=== PATIENT | male | born 1950 | race Caucasian/White ===

== ENCOUNTER 2019-05-29 09:26 | Inpatient (IN) ==
[2019-05-29] MEDS ORDERED: ONDANSETRON INJ 2 MG/ML 2 ML VIAL IV STA (10:28)
[2019-05-29] MEDS ORDERED: SODIUM CHLORIDE 0.9% 1000ML 1,000 ML IV ONE ×2 (10:28→12:38)
[2019-05-29 10:35] LABS: Basophils # (auto) 0.04 K/uL (0-0.2); Basophils % (auto) 0.5 %; Eosinophils # (auto) 0.16 K/uL (0-0.5); Eosinophils % (auto) 2.1 %; Hematocrit (blood only) 40.9 % (42-52); Hemoglobin 14.3 g/dL (14.0-18.0); Immature Granulocytes # (auto) 0.01 K/uL (0.00-0.02); Immature Granulocytes % (auto) 0.1 %; Lymphocytes # (auto) 0.69 K/uL (1.2-3.4); Mean Corpuscular Volume 85.7 fL (80-100); Mean Platelet Volume 9.7 fL (7.4-10.4); Monocytes # (auto) 0.87 K/uL (0.11-0.59); Monocytes % (auto) 11.3 %; Platelet Count 339 K/uL (130-400); RDW Coefficient of Variation 12.2 % (11.5-14.5); RDW Standard Deviation 38.3 fL (36.4-46.3); Red Blood Count 4.77 M/uL (4.7-6.1); White Blood Count 7.67 K/uL (4.8-10.8)
[2019-05-29 10:51] LABS: D Dimer 550 ug/L FEU (0-500)
[2019-05-29 11:15] LABS: Alanine Aminotransferase 21 U/L (12-78); Albumin Level 3.6 gm/dl (3.4-5.0); Aspartate Aminotransferase 17 U/L (15-37); BUN Creatinine Ratio 13.1 (10-20); Blood Urea Nitrogen 12 mg/dl (7-18); Carbon Dioxide 27 mmol/L (21-32); Chloride 98 mmol/L (98-107); Creatinine Clr Calc Pharmacy 99.4 ml/min; Est GFR (African American) 99.9; Est GFR (Non-African American) 86.2; Glucose 104 mg/dl (70-99); Lipase 281 U/L (73-393); Magnesium 1.6 mg/dl (1.8-2.4); Potassium 3.7 mmol/L (3.5-5.1); Sodium 131 mmol/L (136-145)
[2019-05-29 11:19] LABS: Alkaline Phosphatase 89 U/L (45-117); Bilirubin,Total 0.6 mg/dl (0.2-1); Globulin 3.7 gm/dl (2.5-4.0); Total Protein 7.3 gm/dl (6.4-8.2); Troponin I < 0.015 ng/ml (0-0.045)
[2019-05-29] MEDS ORDERED: MAGNESIUM SULFATE / D5W 1 GM/100 ML BAG IV ONE (11:19)
[2019-05-29] MEDS ORDERED: OPTIRAY 320 125ml IV PRN (11:30)
--- NOTE | 2019-05-29 11:49 | CT Scan Report ---
CT SCAN OF THE CERVICAL SPINE CLINICAL HISTORY: Left upper extremity paresthesias. COMPARISON STUDY: No priors. TECHNIQUE: CT scan of the cervical spine is performed from the skull base to the upper thoracic spine . Images are reviewed in the axial, sagittal, and coronal planes. IV contrast was not administered fo r this examination. A dose lowering technique was utilized adhering to the principles of ALARA. FINDINGS: Skeletal structures: The skeletal structures are osteopenic. There is no evidence of fracture or subl uxation involving the cervical spine. Vertebral body height and alignment are maintained. Anterior os teophytes are seen throughout. The odontoid process and lateral masses are intact. The atlantoaxial a rticulation is preserved noting productive degenerative change. The spinous processes appear intact. There is mild to moderate multilevel cervical spondylosis. Uncovertebral and facet arthropathy contri bute to neural foraminal stenosis at several levels. This is moderate on the left at C4-C5 and C6-C7. This is moderate on the right at C3-C4, C4-C5, C5-C6, and C6-C7. Intervertebral discs: There is moderate to advanced disc space narrowing seen at C5-C6 and C6-C7. Mod erate disc space narrowing is seen at C3-C4 and C4-C5. Central canal: Posterior disc osteophyte complexes from C3-C4 through C6-C7 likely contribute to mult ilevel acquired compromise of the central canal. Soft tissues: The prevertebral and paraspinous soft tissues are within normal limits. There is athero sclerotic calcification of the carotid bulbs. Calvarium: The visualized calvarium at the skull base appears intact. Brain parenchyma: Partially visualized brain parenchyma the skull base is within normal limits. Sinuses and mastoids: The visualized paranasal sinuses are clear. The mastoid air cells are well pneu matized. Lung apices: Clear as visualized. IMPRESSION: 1. There is no evidence of fracture or subluxation involving the cervical spine. 2. Osteopenia and spondylotic change as above. ACT 112: Negative or not required by law. Electronically signed by: Kendell Muir M.D. 05/29/2019 11:48 AM
--- NOTE | 2019-05-29 12:10 | CT Scan Report ---
CT ANGIOGRAM OF THE CHEST; CT SCAN OF THE THORACIC SPINE WITHOUT IV CONTRAST CLINICAL HISTORY: Atypical chest pain. Paresthesias of left back. COMPARISON STUDY: Chest CT dated 08/29/2010. Radiographs of the thoracic spine dated 04/15/2019. TECHNIQUE: Following the IV administration of 120 cc of Optiray 320, CT angiogram of the chest was pe rformed from the upper abdomen to the thoracic inlet utilizing the pulmonary embolus protocol. Images are reviewed in the axial, sagittal, and coronal planes. 3-D MIPS images are created and assessed. A dditionally, CT scan of the thoracic spine is performed from the lower cervical spine to the upper olman mbar spine. Images are reviewed in the axial, sagittal, and coronal planes. IV contrast was administe red without complication. A dose lowering technique was utilized adhering to the principles of ALARA . CT DOSE: 1379.00 mGy.cm FINDINGS: Thyroid: Imaged portions of the thyroid gland are normal in size and attenuation. Thoracic aorta: There is mild atherosclerotic calcification of the thoracic aorta is normal in calibe r and demonstrates bovine variant arch anatomy. No dissection is seen. Pulmonary vasculature: The pulmonary trunk is normal in caliber. There are no filling defects identif ied in main, lobar, or segmental pulmonary branches to suggest pulmonary embolus. Heart: The heart is enlarged and without pericardial effusion. The coronary arteries are densely calc ified. Lungs and pleural spaces: Evaluation of the lung parenchyma is degraded by motion artifact. There is no airspace consolidation or pleural effusion. Scarring/atelectasis is noted at the lung bases. The t rachea and central airways are clear. Mediastinum: There is no mediastinal lymphadenopathy. Korina: Clear. Axillae: There is no axillary lymphadenopathy. Upper abdomen: There is a small hiatal hernia. The majority of pancreas is visualized. The grand demo nstrates fatty atrophy. There is a large mass lesion involving the pancreatic tail seen on image #61 which measures approximately 9 x 8 cm and encases branches of the splenic artery. This abuts the grea ter curvature of the stomach. A smaller mass lesion is identified in the pancreatic body on image #35 and measures 3.9 x 2.6 cm. A mass lesion in the pancreatic head on image #6 measures up to 2.8 cm. A smaller nodule in the pancreatic neck region seen on image #13 measures 1.2 cm. There is] infiltrati on and trace fluid. There are pathologically enlarged retroperitoneal lymph nodes. A node on image #7 measures 1.5 cm in length. Numerous peritoneal nodules are identified in the left upper quadrant bel ow the diaphragm. There are enlarged gastrohepatic nodes on image #70. The neural exit measures up to 3.2 cm. No hepatic lesion is seen. Skeletal structures: The skeletal structures are osteopenic. No lytic or blastic bony lesions are see n. THORACIC SPINE: Vertebral body height and alignment are maintained throughout the thoracic spine. The re is no evidence of fracture or malalignment. Flowing anterior osteophytes are seen throughout. The transverse and spinous spinous processes are intact. There is mild multilevel degenerative disc space narrowing. There is no CT evidence of high-grade central canal stenosis. Small posterior disc bulges are noted at T7-T8 and T8-T9. The paraspinous soft tissues are normal in appearance. Soft tissues: Gynecomastia is noted. IMPRESSION: 1. There is no evidence of pulmonary embolus in the main, lobar, or segmental pulmonary arteries.. 2. No acute osseous abnormality is seen involving the thoracic spine. 3. There is no airspace consolidation or pleural effusion. 4. There are several pancreatic mass lesions identified as above. The largest is present in the pancr eatic tail and measures up to 9 cm. This should be considered neoplasm until proven otherwise. Althou gh atypical, this could represent a primary pancreatic neoplasm. Other strong differential considerat ions include pancreatic metastases or lymphoma. 5. There are pathologically enlarged upper abdominal and retroperitoneal lymph nodes. 6. There are numerous peritoneal nodules identified, likely representing peritoneal carcinomatosis. 7. There is peripancreatic inflammation and trace fluid. Correlate clinically and with serum amylase/ lipase levels for evidence of acute pancreatitis. 8. Cardiomegaly. 9. Additional findings as above. ACT 112: Positive. There are findings on this exam that require communication between the performing entity and the patient following Patient Test Result Information Act ([place] Act 112) guidelines. Electronically signed by: Kendell Muir M.D. 05/29/2019 12:08 PM
[2019-05-29] MEDS ORDERED: fentaNYL citrate 100 MCG/2 ML VIAL IV STA (13:15)
[2019-05-29] MEDS ORDERED: ACETAMINOPHEN 1,000 MG/100 ML VIAL IV STA (13:15)
--- NOTE | 2019-05-29 14:38 | History & Physical Report ---
Date of Service May 29, 2019 Assessment & Plan (1) Left-sided chest pain: Possibly referred pain from mass Trop neg x1 CTA neg for other issues other than mass CBC, PRP WNL Lipase WNL EKG noted for sinus tachy GI and gen surg c/s pending Clears IVF Helped with gabapentin and tramadol, continue (2) Pancreatic mass: As noted above (3) HTN (hypertension): continue home meds (4) Elevated PSA: MRI scheduled for tomorrow, will need rescheduled on d/c Follows with [facility] [place] urology (5) DVT prophylaxis: SCDs History of Present Illness Primary Care Provider: SHILO Vizcarra 68 y/o M c/o L lateral pain and itching. This has been ongoing for the last several weeks. It started on the L lateral chest wall and was more of an itching sensation. He mentioned it to a family member and was told it might be shingles. He never developed a rash and the itching became more intense, spreading around to his back and into his chest. It became more painful as well. He would also have radiation at times into his L UE. Pt was seen by PCP and images reveals bone spurs along his spine, so it was thought that this was more of a nerve related pain due to the bone spurs. Pt was started on gabapentin and tramadol. This did help initially, but then it wasn't as helpful. Dosing was increased and it did help again, however he started having nausea and constipation. He has been taking stool softeners for this. He has not been able to tolerate PO for about a month at this point and has lost about 20lbs over the last month.Pt denies fever, SOB, abd pain, LE pain or swelling. Pt was to have an MRI tomorrow for elevated PSA. Allergies Allergy/AdvReac Type Severity Reaction Status Date / Time ibuprofen Allergy Severe ANAPHYLAXIS Verified 05/29/19 09:59 Home Medications Home Medications Medication Instructions Recorded Confirmed Type aspirin 81 mg PO DAILY 05/29/19 05/29/19 History fenofibrate nanocrystallized 145 mg PO DAILY 05/29/19 05/29/19 History gabapentin 400 mg PO TID 05/29/19 05/29/19 History tramadol 50 mg PO Q6 PRN 05/29/19 05/29/19 History valsartan-hydrochlorothiazide 1 tab PO DAILY 05/29/19 05/29/19 History Past Med/Surg History Surgical History No pertinent past surgical history Family History (Updated 05/29/19 @ 14:36 by Terri Carbajal DO) Father Myocardial infarction Other Family history non-contributory Social History (Updated 05/29/19 @ 14:37 by Terri Carbajal DO) Preferred Language: Kittitian Feels Safe at Home: Yes Smoking Status: Never smoker Hx Alcohol Use: Yes Alcohol type: beer and wine Alcohol Intake Frequency Comment: none x30 days due to sx Hx Substance Use: No Review of Systems Review of Systems: Pertinent positives and negatives reviewed in HPI--all others negative Physical Exam Constitutional: WD/WN, vitals as above Eyes: normal visual emmanuel by confrontation and + anicteric sclerae Neck: normal visual inspection and trachea midline Respiratory: normal respiratory effort, lungs clear to auscultation Cardiovascular: Rate/Rhythm: regular rate and regular rhythm Gastrointestinal (Abdomen): Inspection/Auscultation: abdomen not distended Percussion/Palpation: abdomen soft; abdomen nontender Musculoskeletal: Head/Neck/Chest: normocephalic and head atraumatic negative for edema, peripheral pulses intact Skin: no rashes, warm and dry Neurologic: awake; not confused Speech / Cognition: normal speech Psychiatric: A+Ox3, euthymic affect Results & Data Vital Signs (Past 12 Hours) Vital Signs Temp Pulse Pulse Resp BP BP Pulse Ox 05/29/19 11:10 119 H 17 133/96 97 05/29/19 09:29 36.5 C 121 H 20 133/[address] c-spine/t-spine: neg for acute CTA: Neg for PE, noted for pancreatic tail mass, 9cm ECG Additional Comments: sinus tachy Code Status & VTE Plan Code Status Full code VTE Prophylaxis Plan VTE Prophylaxis will be ordered: Yes PG Care Time/CCT Total # of Minutes Spent Total Time Spent with Patient: Total time spent is greater than 50% in coordination of care (as documented) at patient's floor/unit and/or counseling patient:
[2019-05-29] MEDS ORDERED: ACETAMINOPHEN 325 MG TAB PO PRN (15:47)
[2019-05-29] MEDS ORDERED: ONDANSETRON INJ 2 MG/ML 2 ML VIAL IV PRN (15:47)
[2019-05-29] MEDS ORDERED: MAGNESIUM HYDROXIDE SUSP 30 ML UDC PO PRN (15:47)
[2019-05-29] MEDS: D5W AND NSS 1,000 ML IV SCH (16:42)
[2019-05-29] MEDS: TRAMADOL HCL 50 MG TABLET PO PRN ×2 (16:55→19:33)
--- NOTE | 2019-05-29 17:34 | Electrocardiogram Report ---
Test Reason : Blood Pressure : / mmHG Vent. Rate : 122 BPM Atrial Rate : 122 BPM P-R Int : 170 ms QRS Dur : 108 ms QT Int : 324 ms P-R-T Axes : 017 -89 044 degrees QTc Int : 461 ms Sinus tachycardia Left axis deviation Pulmonary disease pattern Incomplete right bundle branch block Abnormal ECG When compared with ECG of 30-AUG-2010 08:56, Vent. rate has increased BY 50 BPM Confirmed by Arvind Veras ([id number]) on 05/29/2019 5:33:41 PM Referred By: REFERRED SELF Confirmed By:Arvind Veras
--- NOTE | 2019-05-29 19:03 | Emergency Department Note ---
Entered by Vj Song acting as a scribe for History of Present Illness General Chief complaint: GI Assessment Stated complaint: UNABLE TO EAT, EXCRUTIATING PAIN BACK, THROAT PAIN Time Seen by Provider: 05/29/19 10:02 Source: patient Limitations: no limitations History of Present Illness Onset (ago): week(s) 4 Location: left (arm) Radiation: other (chest, under left shoulder blade) Pain Consistency: + constant Maximum Pain Intensity: 9 Quality: + constant Associated symptoms: + denies other symptoms (neck pain, recent falls, recent injuries, vision problems), + nausea/vomiting (nausea), + weakness and + other (buttock numbness, right ear numbness, ); no headaches and no rash The patient is a 68 year old male who presents to the Emergency Room with complaints of constant and worsening left arm numbness starting 4 weeks ago. The patient states he lost his voice 3 months ago and has not got it back since. The patient states he went to a medical center a month ago with left arm numbness and itchiness. He states the numbness and itchiness radiates to under his left shoulder blade and around to the left-side of his chest. He states the numbness goes down to his fingertips on his left hand. He states he has left arm weakness. He states he received imaging and was told he had a pinched nerve and bone spurs. He states he has an MRI scheduled for tomorrow. He states his right ear is numb. He states he started to get left buttock numbness last week. He notes he has not been eating much. he states if he bends over and stands up quickly it feels like he is going to pass out. The patient denies vision problems, headaches, rashes, neck pain, recent falls, and recent change in his activity. He denies prior neck and back problems. He states he has an MRI scheduled for tomorrow of his thoracic spine. He notes he was initially taking gabapentin and tramadol and notes he started to feel nauseous. He states he was told to take Prilosec and states that made him feel better. He states his father at 52 years old from a heart attack. He states he had PSAs of 15.5. Home Medications Home Medications Medication Instructions Recorded Confirmed Type aspirin 81 mg PO DAILY 05/29/19 05/29/19 History fenofibrate nanocrystallized 145 mg PO DAILY 05/29/19 05/29/19 History gabapentin 400 mg PO TID 05/29/19 05/29/19 History tramadol 50 mg PO Q6 PRN 05/29/19 05/29/19 History valsartan-hydrochlorothiazide 1 tab PO DAILY 05/29/19 05/29/19 History Allergies Allergy/AdvReac Type Severity Reaction Status Date / Time ibuprofen Allergy Severe ANAPHYLAXIS Verified 05/29/19 09:59 Past Med/Surg History Surgical History No pertinent past surgical history Family History (Updated 05/29/19 @ 14:36 by Terri Carbajal DO) Father Myocardial infarction Other Family history non-contributory Social History (Updated 05/29/19 @ 14:37 by Terri Carbajal DO) Preferred Language: Turkmen Communication Ability: Effective 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 and A total of 10 systems reviewed and were otherwise negative Physical Exam Vital Signs Vital Signs - 24 hr 05/29/19 09:29 05/29/19 11:10 05/29/19 13:00 Temperature 36.5 C Temperature Source Oral Pulse Rate 121 H Pulse Rate [Apical] 119 H 102 H Pulse Rhythm [Apical] Regular Regular Respiratory Rate 20 17 17 Respiratory Effort / Characteristics Non-Labored Spontaneous Non-Labored Non-Labored Spontaneous Respiratory Depth Normal Normal Normal Respiratory Pattern Regular Regular Blood Pressure 133/90 Blood Pressure [Left Arm] 133/96 138/95 Blood Pressure Mean 104 Blood Pressure Mean [Left Arm] 108 109 Blood Pressure Position Sitting Pulse Oximetry 100 97 96 Oxygen Delivery Method Room Air Room Air Room Air Sepsis Recent Fever Within 48 Hours No Sepsis New/Unexplained Change in Mental Status No Sepsis Action Taken by Nursing No Action Required GENERAL: alert, well appearing, well nourished, no distress, non-toxic EYE EXAM: normal conjunctiva, PERRL and EOM's grossly intact OROPHARYNX: no exudate, no erythema, lips, buccal mucosa, and tongue normal and mucous membranes are moist NECK: supple, no nuchal rigidity, no adenopathy, non-tender LUNGS: Clear to auscultation. Normal chest wall mechanics, no w/r/r HEART: no murmurs, S1 normal and S2 normal. CHEST: No reproducible chest wall tenderness. ABDOMEN: abdomen soft, non-tender, normo-active bowel sounds, no masses, no rebound or guarding. BACK: Back is symmetrical on inspection and there is no deformity, no midline tenderness, no CVA tenderness. SKIN: no rashes and no bruising, no petechiae, no vesicular rash. UPPER EXTREMITIES: upper extremities are grossly normal. Subjective altered sensation to left upper extremity with light touch. Full ROM with slightly decreased strength on handgrip. LOWER EXTREMITIES: No pitting edema. FROM, nml pulses b/l. NEURO EXAM: Normal sensorium, cranial nerves II-XII grossly intact, normal speech, no gross weakness of arms, no gross weakness of legs. Course Course 1010: The patient was evaluated in room A11B, and a complete history and physical examination were performed. 1254: I reevaluated the patient. I updated the patient on his imaging results. 1321: I discussed the patient's case with Dr. Cabrajal - [facility]. She will evaluate the patient for further management. Administered Medications Dextrose/Sodium Chloride (D5w And Nss) 1,000 mls @ 80 mls/hr IV .[id number] ANA Stop: 06/28/19 15:46 Last Admin: 05/29/19 16:42 Dose: 80 mls/hr Documented by: [id number] Ioversol (Optiray 320 125ml) 120 ml IV ONCE PRN PRN Reason: Interaction Checking Stop: 06/02/19 11:29 Last Admin: 05/29/19 11:30 Dose: 120 ml Documented by: [id number] Discontinued Medications Fentanyl Citrate (Fentanyl Citrate) 50 mcg IV NOW STA Stop: 05/29/19 13:16 Last Admin: 05/29/19 13:43 Dose: 50 mcg Documented by: [id number] Sodium Chloride (Nss 1000ml) 1,000 mls @ 999 mls/hr IV .Q1H1M ONE Stop: 05/29/19 11:28 Last Infusion: 05/29/19 12:20 Dose: 0 mls/hr Documented by: [id number] Admin: 05/29/19 11:09 Dose: 999 mls/hr Documented by: [id number] Magnesium Sulfate/Dextrose (Magnesium Sulfate / D5w) 1 gm in 100 mls @ 100 mls/hr IV ONE ONE Stop: 05/29/19 12:18 Last Infusion: 05/29/19 12:48 Dose: 0 mls/hr Documented by: [id number] Admin: 05/29/19 11:43 Dose: 100 mls/hr Documented by: [id number] Sodium Chloride (Nss 1000ml) 1,000 mls @ 999 mls/hr IV .Q1H1M ONE Stop: 05/29/19 13:38 Last Infusion: 05/29/19 13:41 Dose: 0 mls/hr Documented by: [id number] Admin: 05/29/19 12:48 Dose: 999 mls/hr Documented by: [id number] Acetaminophen (Ofirmev) 1,000 mg in 100 mls @ 400 mls/hr IV NOW STA Stop: 05/29/19 13:29 Last Infusion: 05/29/19 13:58 Dose: 0 mls/hr Documented by: [id number] Admin: 05/29/19 13:43 Dose: 400 mls/hr Documented by: [id number] Ondansetron HCl (Zofran) 4 mg IV NOW STA Stop: 05/29/19 10:29 Last Admin: 05/29/19 11:09 Dose: 4 mg Documented by: [id number] Medical Decision Making Differential Diagnosis Differential diagnoses includes but is not limited to gastritis, peptic ulcer di sease, GERD, gallbladder disease, pancreatitis, small bowel obstruction, acute coronary syndrome, ischemic bowel, irritable bowel disease, irritable bowel syndrome, appendicitis, diverticulitis, malignancy, hernia, urinary tract infection, torsion, perforation, trauma, infectious, myocardial infarction, pericarditis, pulmonary embolus, aortic dissection, pneumonia, pneumothorax, musculoskeletal, shingles, and esophageal. Medical Records Attestation: I reviewed the patient's medical records. Home Medications Current Medication List: was personally reviewed by me Laboratory Data Attestation: I reviewed the patient's lab results. Result diagrams: 05/29/19 10:26 05/29/19 10:26 Lab Results 05/29/19 05/29/19 05/29/19 Range/Units 10:26 10:26 10:26 WBC 7.67 (4.8-10.8) K/uL RBC 4.77 (4.7-6.1) M/uL Hgb 14.3 (14.0-18.0) g/dL Hct 40.9 L (42-52) % MCV 85.7 (80-100) fL MCH 30.0 (25-34) pg MCHC 35.0 (32-36) g/dL RDW Std Deviation 38.3 (36.4-46.3) fL RDW Coeff of [place] 12.2 (11.5-14.5) % Plt Count 339 (130-400) K/uL MPV 9.7 (7.4-10.4) fL Immature Gran % (Auto) 0.1 % Neut % (Auto) 77.0 % Lymph % (Auto) 9.0 % [place] % (Auto) 11.3 % Eos % (Auto) 2.1 % Baso % (Auto) 0.5 % Immature Gran # (Auto) 0.01 (0.00-0.02) K/uL Neut # (Auto) 5.90 (1.4-6.5) K/uL Lymph # (Auto) 0.69 L (1.2-3.4) K/uL [place] # (Auto) 0.87 H (0.11-0.59) K/uL Eos # (Auto) 0.16 (0-0.5) K/uL Baso # (Auto) 0.04 (0-0.2) K/uL D-Dimer 550 H* (0-500) ug/L FEU Sodium 131 L (136-145) mmol/L Potassium 3.7 (3.5-5.1) mmol/L Chloride 98 (98-107) mmol/L Carbon Dioxide 27 (21-32) mmol/L Anion Gap 6.0 (3-11) BUN 12 (7-18) mg/dl Creatinine 0.90 (0.6-1.4) mg/dl Est Cr Clr Drug Dosing 99.4 ml/min Est GFR ( Amer) 99.9 Est GFR (Non-Af Amer) 86.2 BUN/Creatinine Ratio 13.1 (10-20) Glucose 104 H (70-99) mg/dl Calcium 10.0 (8.5-10.1) mg/dl Magnesium 1.6 L (1.8-2.4) mg/dl Total Bilirubin 0.6 (0.2-1) mg/dl AST 17 (15-37) U/L ALT 21 (12-78) U/L Alkaline Phosphatase 89 (45-117) U/L Troponin I < 0.015 (0-0.045) ng/ml Total Protein 7.3 (6.4-8.2) gm/dl Albumin 3.6 (3.4-5.0) gm/dl Globulin 3.7 (2.5-4.0) gm/dl Albumin/Globulin Ratio 1.0 (0.9-2) Lipase 281 (73-393) U/L Hepatitis C Ab Screen (Neg) 05/29/19 Range/Units 10:26 WBC (4.8-10.8) K/uL RBC (4.7-6.1) M/uL Hgb (14.0-18.0) g/dL Hct (42-52) % MCV (80-100) fL MCH (25-34) pg MCHC (32-36) g/dL RDW Std Deviation (36.4-46.3) fL RDW Coeff of [place] (11.5-14.5) % Plt Count (130-400) K/uL MPV (7.4-10.4) fL Immature Gran % (Auto) % Neut % (Auto) % Lymph % (Auto) % [place] % (Auto) % Eos % (Auto) % Baso % (Auto) % Immature Gran # (Auto) (0.00-0.02) K/uL Neut # (Auto) (1.4-6.5) K/uL Lymph # (Auto) (1.2-3.4) K/uL [place] # (Auto) (0.11-0.59) K/uL Eos # (Auto) (0-0.5) K/uL Baso # (Auto) (0-0.2) K/uL D-Dimer (0-500) ug/L FEU Sodium (136-145) mmol/L Potassium (3.5-5.1) mmol/L Chloride (98-107) mmol/L Carbon Dioxide (21-32) mmol/L Anion Gap (3-11) BUN (7-18) mg/dl Creatinine (0.6-1.4) mg/dl Est Cr Clr Drug Dosing ml/min Est GFR ( Amer) Est GFR (Non-Af Amer) BUN/Creatinine Ratio (10-20) Glucose (70-99) mg/dl Calcium (8.5-10.1) mg/dl Magnesium (1.8-2.4) mg/dl Total Bilirubin (0.2-1) mg/dl AST (15-37) U/L ALT (12-78) U/L Alkaline Phosphatase (45-117) U/L Troponin I (0-0.045) ng/ml Total Protein (6.4-8.2) gm/dl Albumin (3.4-5.0) gm/dl Globulin (2.5-4.0) gm/dl Albumin/Globulin Ratio (0.9-2) Lipase (73-393) U/L Hepatitis C Ab Screen Neg (Neg) Imaging Data Radiologist's Impression: Radiology results as stated below per my review and the radiologist's interpretation: CT SCAN OF THE CERVICAL SPINE CLINICAL HISTORY: Left upper extremity paresthesias. COMPARISON STUDY: No priors. TECHNIQUE: CT scan of the cervical spine is performed from the skull base to the upper thoracic spine. Images are reviewed in the axial, sagittal, and coronal planes. IV contrast was not administered for this examination. A dose lowering technique was utilized adhering to the principles of ALARA. FINDINGS: Skeletal structures: The skeletal structures are osteopenic. There is no evidence of fracture or subluxation involving the cervical spine. Vertebral body height and alignment are maintained. Anterior osteophytes are seen throughout. The odontoid process and lateral masses are intact. The atlantoaxial ar ticulation is preserved noting productive degenerative change. The spinous processes appear intact. There is mild to moderate multilevel cervical spondylosis. Uncovertebral and facet arthropathy contribute to neural foraminal stenosis at several levels. This is moderate on the left at C4-C5 and C6-C7. This is moderate on the right at C3-C4, C4-C5, C5-C6, and C6-C7. Intervertebral discs: There is moderate to advanced disc space narrowing seen at C5-C6 and C6-C7. Moderate disc space narrowing is seen at C3-C4 and C4-C5. Central canal: Posterior disc osteophyte complexes from C3-C4 through C6-C7 likely contribute to multilevel acquired compromise of the central canal. Soft tissues: The prevertebral and paraspinous soft tissues are within normal limits. There is atherosclerotic calcification of the carotid bulbs. Calvarium: The visualized calvarium at the skull base appears intact. Brain parenchyma: Partially visualized brain parenchyma the skull base is within normal limits. Sinuses and mastoids: The visualized paranasal sinuses are clear. The mastoid air cells are well pneumatized. Lung apices: Clear as visualized. IMPRESSION: 1. There is no evidence of fracture or subluxation involving the cervical spine. 2. Osteopenia and spondylotic change as above. ACT 112: Negative or not required by law. Electronically signed by: Kendell Muir M.D. 05/29/2019 11:[address] ANGIOGRAM OF THE CHEST; CT SCAN OF THE THORACIC SPINE WITHOUT IV CONTRAST CLINICAL HISTORY: Atypical chest pain. Paresthesias of left back. COMPARISON STUDY: Chest CT dated 08/29/2010. Radiographs of the thoracic spine dated 04/15/2019. TECHNIQUE: Following the IV administration of 120 cc of Optiray 320, CT angiogram of the chest was performed from the upper abdomen to the thoracic inlet utilizing the pulmonary embolus protocol. Images are reviewed in the axial, sagittal, and coronal planes. 3-D MIPS images are created and assessed. Additionally, CT scan of the thoracic spine is performed from the lower cervical spine to the upper lumbar spine. Images are reviewed in the axial, sagittal, and coronal planes. IV contrast was administered without complication. A dose lowering technique was utilized adhering to the principles of ALARA. CT DOSE: 1379.00 mGy.cm FINDINGS: Thyroid: Imaged portions of the thyroid gland are normal in size and atten uation. Thoracic aorta: There is mild atherosclerotic calcification of the thoracic aorta is normal in caliber and demonstrates bovine variant arch anatomy. No dissection is seen. Pulmonary vasculature: The pulmonary trunk is normal in caliber. There are no filling defects identified in main, lobar, or segmental pulmonary branches to suggest pulmonary embolus. Heart: The heart is enlarged and without pericardial effusion. The coronary arteries are densely calcified. Lungs and pleural spaces: Evaluation of the lung parenchyma is degraded by motion artifact. There is no airspace consolidation or pleural effusion. Scarring/atelectasis is noted at the lung bases. The trachea and central airways are clear. Mediastinum: There is no mediastinal lymphadenopathy. [place]: Clear. Axillae: There is no axillary lymphadenopathy. Upper abdomen: There is a small hiatal hernia. The majority of pancreas is visualized. The grand demonstrates fatty atrophy. There is a large mass lesion involving the pancreatic tail seen on image #61 which measures approximately 9 x 8 cm and encases branches of the splenic artery. This abuts the greater curvature of the stomach. A smaller mass lesion is identified in the pancreatic body on image #35 and measures 3.9 x 2.6 cm. A mass lesion in the pancreatic hea d on image #6 measures up to 2.8 cm. A smaller nodule in the pancreatic neck region seen on image #13 measures 1.2 cm. There is] infiltration and trace fluid. There are pathologically enlarged retroperitoneal lymph nodes. A node on image #7 measures 1.5 cm in length. Numerous peritoneal nodules are identified in the left upper quadrant below the diaphragm. There are enlarged gastrohepatic nodes on image #70. The neural exit measures up to 3.2 cm. No hepatic lesion is seen. Skeletal structures: The skeletal structures are osteopenic. No lytic or blastic bony lesions are seen. THORACIC SPINE: Vertebral body height and alignment are maintained throughout the thoracic spine. There is no evidence of fracture or malalignment. Flowing anterior osteophytes are seen throughout. The transverse and spinous spinous processes are intact. There is mild multilevel degenerative disc space narrowing. There is no CT evidence of high-grade central canal stenosis. Small posterior disc bulges are noted at T7-T8 and T8-T9. The paraspinous soft tissues are normal in appearance. Soft tissues: Gynecomastia is noted. IMPRESSION: 1. There is no evidence of pulmonary embolus in the main, lobar, or segmental pulmonary arteries.. 2. No acute osseous abnormality is seen involving the thoracic spine. 3. There is no airspace consolidation or pleural effusion. 4. There are several pancreatic mass lesions identified as above. The largest is present in the pancreatic tail and measures up to 9 cm. This should be considered neoplasm until proven otherwise. Although atypical, this could represent a primary pancreatic neoplasm. Other strong differential considerations include pancreatic metastases or lymphoma. 5. There are pathologically enlarged upper abdominal and retroperitoneal lymph nodes. 6. There are numerous peritoneal nodules identified, likely representing peritoneal carcinomatosis. 7. There is peripancreatic inflammation and trace fluid. Correlate clinically and with serum amylase/lipase levels for evidence of acute pancreatitis. 8. Cardiomegaly. 9. Additional findings as above. ACT 112: Positive. There are findings on this exam that require communication between the performing entity and the patient following Patient Test Result Information Act ([place] Act 112) guidelines. Electronically signed by: Kendell Muir M.D. 05/29/2019 12:08 PM ECG Data Attestation: I personally reviewed and interpreted this ECG as follows: Rate (beats per minute): 122 Rhythm: + sinus tachycardia ECG Intervals/blocks: + Normal QRS, + Normal QT, + Normal [place] and + Normal QT-c ECG [place]: + Left axis deviation ECG ST segments: no ST depression and no ST elevation ECG Findings: no PACs and no PVCs Blood Pressure Blood Pressure Findings: Elevated blood pressure Blood Pressure Disposition: further management by hospitalist HUMBERTO Verduzco Patient presenting with worsening symptoms over the last 2 to 3 months after outpatient evaluation. Patient initially thought to have herpes zoster however no rash ever manifested. Patient sent for outpatient chest x-ray which was reported to him was unremarkable. Patient then eventually arranged for MRI by his PCP which is scheduled for later this week. In addition to the left chest and flank pain the patient has been having he is also been having increased paresthesias and weakness to the left upper extremity. No known history of cervical spine pathology. No other prior history of back pain or problems. Labs drawn and sent, EKG and troponin reassuring. Due to elevated d-dimer yariel ent sent for additional imaging which also included cervical and thoracic spine. Patient unfortunately found to have a pancreatic mass at the pancreatic tail which is likely the cause of the left-sided chest and flank pain he has been having. Is unclear if this also explains the left upper extremity paresthesias. Patient does have other degenerative changes noted in the spine which could be contributing to a cervical radiculopathy. Patient was made aware of all results and I feel would benefit from additional inpatient management. Patient was tachycardic when in the emergency room, he was given IV fluids. Patient otherwise hemodynamically stable and afebrile. Patient's other labs reassuring. I do not suspect cardiac or pulmonary pathology. No evidence for cholecystitis, acute pancreatitis, cholelithiasis. No history of hepatitis. Case discussed with hospitalist for additional management. Impression & Plan Left-sided chest pain, Left flank pain, Pancreatic mass, Paresthesia of left upper extremity Discharge Plan Visit Data *Final* Discharge Date/Time: 05/29/19 15:21 Chief Complaint: GI Assessment Stated Complaint: UNABLE TO EAT, EXCRUTIATING PAIN BACK, THROAT PAIN ED Provider: Diana Casiano Discharge Problem: Left-sided chest pain, Left flank pain, Pancreatic mass, Paresthesia of left upper extremity Patient Disposition: Admitted As Inpatient Discharge Instructions Interventions: ED Discharge Assessment Last Done: 05/29/19 15:21 The scribe's documentation has been prepared under my direction and personally reviewed by me in its entirety. I confirm that the note above accurately reflects all work, treatment, procedures, and medical decision making performed by me.
[2019-05-29] MEDS: GABAPENTIN 400 MG CAP PO SCH (20:36)
[2019-05-29] MEDS ORDERED: PNEUMOCOCCAL ADMINISTRATION CHARGE ONE (21:00)
[2019-05-29] MEDS ORDERED: PNEUMOCOCCAL POLYSACCHARIDES 25 MCG/0.5 ML VIAL/SYR IM ONE (21:00)
[2019-05-29] MEDS ORDERED: ZOLPIDEM TARTRATE 5 MG TAB PO ONE (21:50)
[2019-05-30] MEDS: D5W AND NSS 1,000 ML IV SCH ×2 (05:28→17:43)
[2019-05-30] MEDS: hydroCHLOROthiazide 25 MG TAB PO SCH (09:12)
[2019-05-30] MEDS: GABAPENTIN 400 MG CAP PO SCH ×3 (09:12→20:47)
[2019-05-30] MEDS: FENOFIBRATE NANOCRYSTALLIZED 145 MG TABLET PO SCH (09:12)
[2019-05-30] MEDS: VALSARTAN 80 MG TAB PO SCH (09:12)
--- NOTE | 2019-05-30 11:59 | Surgery Consultation ---
Date of Consultation May 30, 2019 Assessment & Plan (1) Pancreatic mass: Goal #1 is to obtain tissue diagnosis. GI going to attempt an endoscopic ultrasound which will hopefully get us our answer. This is not likely to be a surgical problem. He may need a Mediport pending final diagnosis. If you do not get diagnosis with endoscopic ultrasound he may need interventional radiology biopsy It would be okay from my standpoint for him to be discharged after the endoscopic ultrasound with work-up as outpatient. [facility] surgeons vacation sales advisor for the weekend if any surgical advice is needed History of Present Illness Attending Physician: Nick Martinez History of Present Illness 68-year-old male who had presented with chest itchiness and discomfort originally. He also complained about a 20 pound weight loss. Work-up while here in the hospital has revealed multiple pancreatic masses. Currently denies abdominal pain. Allergies Allergy/AdvReac Type Severity Reaction Status Date / Time ibuprofen Allergy Severe ANAPHYLAXIS Verified 05/29/19 09:59 Home Medications Home Medications Medication Instructions Recorded Confirmed Type aspirin 81 mg PO DAILY 05/29/19 05/29/19 History fenofibrate nanocrystallized 145 mg PO DAILY 05/29/19 05/29/19 History gabapentin 400 mg PO TID 05/29/19 05/29/19 History tramadol 50 mg PO Q6 PRN 05/29/19 05/29/19 History valsartan-hydrochlorothiazide 1 tab PO DAILY 05/29/19 05/29/19 History Patient History Surgical History No pertinent past surgical history Family History (Updated 05/29/19 @ 14:36 by Terri Carbajal DO) Father Myocardial infarction Other Family history non-contributory Social History (Updated 05/29/19 @ 14:37 by Terri Carbajal DO) Preferred Language: [place] Communication Ability: Effective 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 Food Assembler Required: No Beliefs That Will Affect Care: None marital status: Current Living Situation: Spouse Feels Safe at Home: Yes Smoking Status: Former smoker Tobacco Type: cigarettes ; Second Hand Exposure: No ; Hx Alcohol Use: Yes Alcohol type: beer Alcohol Intake Frequency Comment: none x30 days due to sx Hx Substance Use: No Review of Systems Review of Systems: All systems reviewed & are unremarkable except as noted in HPI & below Physical Exam Constitutional: WD/WN, vitals as above no acute distress and not ill appearing Eyes: PERRL, conjunctivae normal, anicteric sclerae EOM intact bilaterally ENMT: external ear and nose normal, oropharynx normal Ears: no hearing impairment Neck: trachea midline, no thyromegaly Respiratory: normal respiratory effort; no respiratory distress and does not use accessory muscles Cardiovascular: Rate/Rhythm: regular rate and regular rhythm Gastrointestinal (Abdomen): Soft nontender. No palpable masses. Skin: no rashes, warm and dry Psychiatric: Orientation: alert, oriented x 3 and cooperative Results & Data Vital Signs (Past 12 Hours) Vital Signs Temp Pulse Resp BP Pulse Ox 05/30/19 07:30 36.8 C 100 H 18 163/97 H 96 PG Care Time/CCT Total # of Minutes Spent Total Time Spent with Patient: Total time spent is greater than 50% in coordination of care (as documented) at patient's floor/unit and/or counseling patient:
--- NOTE | 2019-05-30 12:04 | Gastrointestinal Consultation ---
Date of Consultation May 30, 2019 Assessment & Plan (1) Pancreatic mass: 68 y/o male with PMhx HTN, HLD and new-onset abd discomfort, left-sided back and chest discomfort, along with anorexia and weight loss of approx 20 lbs in the last month presented with these symptoms yesterday. On CTA of the chest he was found to have several pancreatic lesions, largest 9 cm in the tail (concerning for pancreatic neoplasm/mets/lymphoma), along with pathologically enlarged lymph nodes in the upper abd/retroperitoneum in addition to findings concerning for peritoneal carcinomatosis. Labs reviewed; no elevated LFTS, bilirubin, WBC; HGB WNL. Currently he is resting and is comfortable. - Discussed findings with pt and his , who was at bedside - Plan for EUS this afternoon to obtain pancreatic biopsy - Keep NPO - Continue IVF - Continue analgesia PRN Supervising Physician Co-Signing Physician Notes I have seen and examined the patient with Luzmaria Armendariz PA-c whose note reflects our findings and plan. Admitted with back and abd pain and weight loss. Imaging done to r/o PE showed large pancreatic mass and additional masses encasing vessel abuting the stomach. EUS planned for later today. Abd exam is benign History of Present Illness Reason for Consultation: pancreatic mass Attending Physician: Nick Martinez History of Present Illness Pt is a 68 y/o male with PMhx HTN, HLD who developed left upper back pain, left chest and intermittent periumbilical discomfort described as a "burning" x at least the last several weeks. He's had limited appetite and has lost approx 20 lbs as well. He came to the ER yesterday with ongoing symptoms and was admitted; Na low but otherwise CBC, LFts, bilirubin, renal fxn WNL. D-dimer was elevated and CTA chest done demonstrating no PE, but several pancreatic mass lesions, largest present in the pancreatic tail measuring 9 cm, along with pathologically enlarged upper abd and retroperitoneal lymph nodes, along with numerous peritoneal nodules, likely representing peritoneal carcinomatosis; along with peripancreatic inflammation and trace fluid. Currently feeling better than he was previously; abd pain is currently minimal; back pain controlled. Bowels move daily, soft, brown. Denies significant night sweats, fevers, heartburn, dysphagia, vomiting, nausea, change in BMs, melena, hematochezia, jaundice, rashes, itching. Allergies Allergy/AdvReac Type Severity Reaction Status Date / Time ibuprofen Allergy Severe ANAPHYLAXIS Verified 05/29/19 09:59 Home Medications Home Medications Medication Instructions Recorded Confirmed Type aspirin 81 mg PO DAILY 05/29/19 05/29/19 History fenofibrate nanocrystallized 145 mg PO DAILY 05/29/19 05/29/19 History gabapentin 400 mg PO TID 05/29/19 05/29/19 History tramadol 50 mg PO Q6 PRN 05/29/19 05/29/19 History valsartan-hydrochlorothiazide 1 tab PO DAILY 05/29/19 05/29/19 History Patient History Surgical History No pertinent past surgical history Family History (Updated 05/29/19 @ 14:36 by Terri Carbajal DO) Father Myocardial infarction Other Family history non-contributory Social History (Updated 05/29/19 @ 14:37 by Terri Carbajal DO) Preferred Language: Frisian Communication Ability: Effective Yard Jockey Required: No Beliefs That Will Affect Care: None marital status: Current Living Situation: Spouse Feels Safe at Home: Yes Smoking Status: Former smoker Tobacco Type: cigarettes ; Second Hand Exposure: No ; Hx Alcohol Use: Yes Alcohol type: beer Alcohol Intake Frequency Comment: none x30 days due to sx Hx Substance Use: No Review of Systems Constitutional: as per Subjective / HPI, + anorexia and + weight loss; no fever and no chills Respiratory: no cough, no chest congestion and no wheezing Cardiovascular: no chest pain, no dyspnea and no edema Additional Comments: Denies cardiac history Gastrointestinal: as per Subjective / HPI Genitourinary: no dysuria and no hematuria Integumentary: no rash, no pruritus and no yellowing of the skin Physical Exam Constitutional: WD/WN, vitals as above Eyes: + anicteric sclerae Respiratory: normal respiratory effort, lungs clear to auscultation Cardiovascular: RRR, no murmur, no edema Gastrointestinal (Abdomen): Inspection/Auscultation: abdomen normal to inspection and normal bowel sounds; abdomen not distended Percussion/Palpation: abdomen soft; abdomen nontender, no guarding and not tympanic to percussion Skin: no rashes, warm and dry Psychiatric: A+Ox3, euthymic affect Results & Data Vital Signs (Past 12 Hours) Vital Signs Temp Pulse Resp BP Pulse Ox 05/30/19 07:30 36.8 C 100 H 18 163/97 H 96 Laboratory Results 05/29/19 05/29/19 Range/Units 10:26 10:26 Tumor Marker AFP Pending Hepatitis C Ab Screen Neg (Neg) Diagnostic Findings CT ANGIOGRAM OF THE CHEST; CT SCAN OF THE THORACIC SPINE WITHOUT IV CONTRAST CLINICAL HISTORY: Atypical chest pain. Paresthesias of left back. COMPARISON STUDY: Chest CT dated 08/29/2010. Radiographs of the thoracic spine dated 04/15/2019. TECHNIQUE: Following the IV administration of 120 cc of Optiray 320, CT angiogram of the chest was performed from the upper abdomen to the thoracic inlet utilizing the pulmonary embolus protocol. Images are reviewed in the axial, sagittal, and coronal planes. 3-D MIPS images are created and assessed. Additionally, CT scan of the thoracic spine is performed from the lower cervical spine to the upper lumbar spine. Images are reviewed in the axial, sagittal, and coronal planes. IV contrast was administered without complication. A dose lowering technique was utilized adhering to the principles of ALARA. CT DOSE: 1379.00 mGy.cm FINDINGS: Thyroid: Imaged portions of the thyroid gland are normal in size and attenuation. Thoracic aorta: There is mild atherosclerotic calcification of the thoracic a skip is normal in caliber and demonstrates bovine variant arch anatomy. No dissection is seen. Pulmonary vasculature: The pulmonary trunk is normal in caliber. There are no filling defects identified in main, lobar, or segmental pulmonary branches to suggest pulmonary embolus. Heart: The heart is enlarged and without pericardial effusion. The coronary arteries are densely calcified. Lungs and pleural spaces: Evaluation of the lung parenchyma is degraded by motion artifact. There is no airspace consolidation or pleural effusion. Scarring/atelectasis is noted at the lung bases. The trachea and central airways are clear. Mediastinum: There is no mediastinal lymphadenopathy. Korina: Clear. Axillae: There is no axillary lymphadenopathy. Upper abdomen: There is a small hiatal hernia. The majority of pancreas is visualized. The grand demonstrates fatty atrophy. There is a large mass lesion involving the pancreatic tail seen on image #61 which measures approximately 9 x 8 cm and encases branches of the splenic artery. This abuts the greater curvature of the stomach. A smaller mass lesion is identified in the pancreatic body on image #35 and measures 3.9 x 2.6 cm. A mass lesion in the pancreatic head on image #6 measures up to 2.8 cm. A smaller nodule in the pancreatic neck region seen on image #13 measures 1.2 cm. There is] infiltration and trace fluid. There are pathologically enlarged retroperitoneal lymph nodes. A node on image #7 measures 1.5 cm in length. Numerous peritoneal nodules are identified in the left upper quadrant below the diaphragm. There are enlarged gastrohepatic nodes on image #70. The neural exit measures up to 3.2 cm. No hepatic lesion is seen. Skeletal structures: The skeletal structures are osteopenic. No lytic or blastic bony lesions are seen. THORACIC SPINE: Vertebral body height and alignment are maintained throughout the thoracic spine. There is no evidence of fracture or malalignment. Flowing anterior osteophytes are seen throughout. The transverse and spinous spinous processes are intact. There is mild multilevel degenerative disc space narrowing. There is no CT evidence of high-grade central canal stenosis. Small posterior disc bulges are noted at T7-T8 and T8-T9. The paraspinous soft tissues are normal in appearance. Soft tissues: Gynecomastia is noted. IMPRESSION: 1. There is no evidence of pulmonary embolus in the main, lobar, or segmental pulmonary arteries.. 2. No acute osseous abnormality is seen involving the thoracic spine. 3. There is no airspace consolidation or pleural effusion. 4. There are several pancreatic mass lesions identified as above. The largest is present in the pancreatic tail and measures up to 9 cm. This should be considered neoplasm until proven otherwise. Although atypical, this could re present a primary pancreatic neoplasm. Other strong differential considerations include pancreatic metastases or lymphoma. 5. There are pathologically enlarged upper abdominal and retroperitoneal lymph nodes. 6. There are numerous peritoneal nodules identified, likely representing peritoneal carcinomatosis. 7. There is peripancreatic inflammation and trace fluid. Correlate clinically and with serum amylase/lipase levels for evidence of acute pancreatitis. 8. Cardiomegaly.
[2019-05-30] MEDS ORDERED: fentaNYL citrate 100 MCG/2 ML VIAL ONE (14:20)
--- NOTE | 2019-05-30 15:12 | History & Physical Bridge Note ---
Date of Service May 30, 2019 History & Physical Bridge Note I have examined the patient, reviewed the History & Physical and in the interval since the performance of the History & Physical I have noted the following changes of clinical significance: no changes noted. Patient has presented with several weeks of weight loss early satiety and was found to have evidence of pancreatic masses on CT scan. Endoscopic ultrasound has been requested for further evaluation and possible biopsy. I have discussed the risks and benefits of the procedure with the patient and his , these include bleeding, infection, perforation, pancreatitis and insufficient cellularity.
--- NOTE | 2019-05-30 15:24 | Anesthesiology Consultation ---
Date of Service May 30, 2019 Assessment & Plan Chart Review Chart Review: Acceptable Risk for Surgery Consults Requested none History Surgery Operation Date: 05/30/19 11:20 Proposed Procedures p Endoscopic Ultrasonography [place] - Amanda Foster Height/Weight Height: 6 ft 2 in Weight: 103.1 kg Allergies Allergy/AdvReac Type Severity Reaction Status Date / Time ibuprofen Allergy Severe ANAPHYLAXIS Verified 05/29/19 09:59 Medications Home Medications Medication Instructions Recorded Confirmed Last Taken aspirin 81 mg PO DAILY 05/29/19 05/29/19 05/29/19 fenofibrate nanocrystallized 145 mg PO DAILY 05/29/19 05/29/19 05/28/19 gabapentin 400 mg PO TID 05/29/19 05/29/19 05/28/19 tramadol 50 mg PO Q6 PRN 05/29/19 05/29/19 Unknown valsartan-hydrochlorothiazide 1 tab PO DAILY 05/29/19 05/29/19 05/28/19 Active Medications Generic Name Dose Route Start Last Admin Trade Name Freq PRN Reason Stop Dose Admin Acetaminophen 650 mg 05/29/19 15:47 05/30/19 02:32 Tylenol PO 06/28/19 15:46 650 mg Q4H PRN Administration pain/fever Fenofibrate 145 mg 05/30/19 09:00 05/30/19 09:12 Tricor PO 06/29/19 08:59 145 mg DAILY ANA Administration Gabapentin 400 mg 05/29/19 21:00 05/30/19 13:16 Neurontin PO 06/28/19 20:59 Not Given TID ANA Hydrochlorothiazide 12.5 mg 05/30/19 09:00 05/30/19 09:12 Hctz PO 06/29/19 08:59 12.5 mg DAILY ANA Administration Dextrose/Sodium Chloride 1,000 mls @ 80 mls/hr 05/29/19 15:47 05/30/19 05:28 D5w And Nss IV 06/28/19 15:46 80 mls/hr .[id number] ANA Administration Ioversol 120 ml 05/29/19 11:30 05/29/19 11:30 Optiray 320 125ml IV 06/02/19 11:29 120 ml ONCE PRN Administration Interaction Checking Tramadol HCl 50 mg 05/29/19 15:47 05/29/19 19:33 Ultram PO 06/28/19 15:46 50 mg Q6 PRN Administration Pain Valsartan 80 mg 05/30/19 09:00 05/30/19 09:12 Diovan PO 06/29/19 08:59 80 mg DAILY ANA Administration NPO Date Last Intake of Fluids: 05/30/19 Time Last Intake of Fluids: 09:00 Date Last Intake of Solids: 05/30/19 Time Last Intake of Solids: 09:00 Past Family History Family History Father Myocardial infarction Other Family history non-contributory Past Surgical History Surgical History No pertinent past surgical history Social History Smoking Status: Former smoker tobacco type: cigarettes Do You Dip or Chew Tobacco: No Smoking End Date: 1979 Hx Alcohol Use: Yes Alcohol type: beer alcohol intake frequency: 3 or more drinks per day Alcohol Intake Frequency Comment: approximately 2 months ago Hx Substance Use: No Physical Exam Vital Signs Last Vital Signs Temp 37.2 C 05/30/19 15:12 Pulse 105 H 05/30/19 15:12 Resp 18 05/30/19 15:12 BP 137/92 05/30/19 15:12 Pulse Ox 98 05/30/19 15:12 Testing Laboratory Results 05/29/19 10:26 05/29/19 10:26
[2019-05-30] MEDS ORDERED: ATROPINE SULFATE 0.1 MG/ML 10ML SYR IV PRN (15:25)
[2019-05-30] MEDS ORDERED: METOCLOPRAMIDE HCL INJ 5 MG/ML 2 ML VIAL IV PRN (15:25)
[2019-05-30] MEDS ORDERED: ePHEDrine sulfate 50 MG/ML AMP IV PRN (15:25)
[2019-05-30] MEDS ORDERED: ONDANSETRON INJ 2 MG/ML 2 ML VIAL IV PRN (15:25)
[2019-05-30] MEDS ORDERED: HYDROmorphone INJ 2 MG/ML SYR/VIAL IV PRN (15:25)
[2019-05-30] MEDS ORDERED: fentaNYL citrate 100 MCG/2 ML VIAL IV PRN (15:25)
[2019-05-30] MEDS ORDERED: PROMETHAZINE HCL 12.5 MG in SODIUM CHLORIDE 0.9% 50 ML IV PRN (15:25)
[2019-05-30] MEDS ORDERED: LIDOCAINE HCL 2% 2 ML VIAL/AMP(20MG/ML) INFIL ONE (15:47)
[2019-05-30] MEDS ORDERED: SUCCINYLCHOLINE CHLORIDE 20 MG/ML 10 ML VIAL ONE (15:47)
[2019-05-30] MEDS ORDERED: PROPOFOL IV EMULSION 10 MG/ML 20 ML VIAL IV ONE (15:47)
[2019-05-30] MEDS ORDERED: ONDANSETRON INJ 2 MG/ML 2 ML VIAL ONE (15:49)
--- NOTE | 2019-05-30 16:33 | Post Operative Brief Note ---
Immediate Post Op Note v1 Date of Surgery May 30, 2019 Pre & Post Diagnosis Operation Date: 05/30/19 11:20 Pre-Op Diagnosis: pancreatic mass Post-Op Diagnosis: diffuse gastric ulceration of the fundus, gastric mass, lymphadenopathy I identified the patient and participated in the time-out.: Yes Procedure Operation Date: 05/30/19 11:20 Actual Procedures p Endoscopic Ultrasonography Upper, upper endoscopy with biopsies and epinephrine injection(Not Applicable) - Amanda Foster Surgeon Amanda Foster Candle Cutter None Estimated Blood Loss 10 Findings Consistent with Post-Op Diagnosis
--- NOTE | 2019-05-30 16:34 | Communication Note ---
Date of Service: May 30, 2019 The patient underwent upper endoscopy and endoscopic ultrasound this afternoon. The upper endoscopy was notable for diffuse ulceration of the gastric fundus and proximal stomach. He had had a masslike appearance and I wonder about tumor infiltrated into the gastric wall. At the initial endoscopy he was found to have some active oozing. This was stopped with injection of epinephrine. We were also able to identify several lymph nodes which were biopsied. Recommendations Monitor blood count every 6-8 hours Please begin Protonix drip today and reassess tomorrow Biopsy results are pending If significant rebleeding occurs patient may benefit from a tertiary referral with interventional radiology support and perhaps hemo-spray availability
--- NOTE | 2019-05-30 16:43 | GI REPORT ---
Patient Name: Ayo Hagen Procedure Date: 05/30/2019 3:16 PM Date of : 1950 Admit Type: Inpatient Age: 68 Gender: Male Attending MD: Amanda Foster DO Procedure: Upper GI endoscopy Providers: Amanda Foster DO Referring MD: Nick Martinez, Jerri Torres DO, PATRICIA BUTLER Indications: Abnormal CT of the GI tract Medicines: Monitored Anesthesia Care Complications: No immediate complications. Estimated blood loss: Minimal. Estimated Blood Loss: Estimated blood loss was minimal. Procedure: Pre-Anesthesia Assessment: - Prior to the procedure, a History and Physical was performed, and patient medications, allergies and sensitivities were reviewed. The patient's tolerance of previous anesthesia was reviewed. - The risks and benefits of the procedure and the sedation options and risks were discussed with the patient. All questions were answered and informed consent was obtained. - Patient identification and proposed procedure were verified prior to the procedure by the physician, the nurse and the construction job cost estimator. The procedure was verified in the procedure room. - Pre-procedure physical examination revealed no contraindications to sedation. - ASA Grade Assessment: III - A patient with severe systemic disease. - After reviewing the risks and benefits, the patient was deemed in satisfactory condition to undergo the procedure. - The anesthesia plan was to use monitored anesthesia care (MAC). - Immediately prior to administration of medications, the patient was re-assessed for adequacy to receive sedatives. - The heart rate, respiratory rate, oxygen saturations, blood pressure, adequacy of pulmonary ventilation, and response to care were monitored throughout the procedure. - The physical status of the patient was re-assessed after the procedure. After obtaining informed consent, the endoscope was passed under direct vision. Throughout the procedure, the patient's blood pressure, pulse, and oxygen saturations were monitored continuously. The Endoscope was introduced through the mouth, and advanced to the third part of duodenum. The upper GI endoscopy was accomplished without difficulty. The patient tolerated the procedure well. Findings: The examined esophagus was normal. The Z-line was regular and was found 37 cm from the incisors. Clotted blood was found in the gastric fundus. Many non-obstructing oozing cratered gastric ulcers were found in the gastric fundus and on the posterior wall of the gastric body. The ulcers were nodular in appearance, suggestive of an infiltrating mass. Area was successfully injected with 10 mL of a 1:10,000 solution of epinephrine for hemostasis. Biopsies were taken with a cold forceps for histology. The pathology specimen was placed into Bottle A. Estimated blood loss was minimal. The examined duodenum was normal. Impression: - Normal esophagus. - Z-line regular, 37 cm from the incisors. - Clotted blood in the gastric fundus. - Non-obstructing oozing gastric ulcers. Injected. Biopsied. - Normal examined duodenum. Recommendation: - Perform an upper endoscopic ultrasound (UEUS) today. - Use Protonix (pantoprazole) 40 mg PO BID (it appears that an IV PPI is not available at [facility]). Amanda Foster D.O. Amanda Foster, DO 05/30/2019 4:43:35 PM This report has been signed electronically. Note Initiated On: 05/30/2019 3:16 PM Number of Addenda: 0 I attest to the content of the Intraoperative Record and orders documented therein, exceptions below {[id number]}
--- NOTE | 2019-05-30 16:52 | GI REPORT ---
Patient Name: Ayo Hagen Procedure Date: 05/30/2019 3:17 PM Date of : 1950 Admit Type: Inpatient Age: 68 Gender: Male Attending MD: Amanda Foster DO Procedure: Upper EUS Providers: Amanda Foster DO Referring MD: Nick Martinez Indications: Suspected mass in pancreas on CT scan Medicines: Monitored Anesthesia Care Complications: No immediate complications. Estimated blood loss: Minimal. Estimated Blood Loss: Estimated blood loss was minimal. Procedure: Pre-Anesthesia Assessment: - Prior to the procedure, a History and Physical was performed, and patient medications, allergies and sensitivities were reviewed. The patient's tolerance of previous anesthesia was reviewed. - The risks and benefits of the procedure and the sedation options and risks were discussed with the patient. All questions were answered and informed consent was obtained. - Patient identification and proposed procedure were verified prior to the procedure by the physician, the nurse and the apple picking supervisor. The procedure was verified in the procedure room. - Pre-procedure physical examination revealed no contraindications to sedation. - ASA Grade Assessment: III - A patient with severe systemic disease. - After reviewing the risks and benefits, the patient was deemed in satisfactory condition to undergo the procedure. - The anesthesia plan was to use monitored anesthesia care (MAC). - Immediately prior to administration of medications, the patient was re-assessed for adequacy to receive sedatives. - The heart rate, respiratory rate, oxygen saturations, blood pressure, adequacy of pulmonary ventilation, and response to care were monitored throughout the procedure. - The physical status of the patient was re-assessed after the procedure. After obtaining informed consent, the endoscope was passed under direct vision. Throughout the procedure, the patient's blood pressure, pulse, and oxygen saturations were monitored continuously. The scope was introduced through the mouth, and advanced to the third part of duodenum. The upper EUS was accomplished with moderate difficulty due to bleeding as noted during the upper endoscopy. The patient tolerated the procedure well. Findings: ENDOSONOGRAPHIC FINDING: : There was no sign of significant endosonographic abnormality in the ampulla. No masses were identified. There was no sign of significant endosonographic abnormality in the common bile duct. The maximum diameter of the duct was 4 mm. No stones and no biliary sludge were identified. There was no sign of significant endosonographic abnormality in the gallbladder. No stones and no biliary sludge were identified. There was no sign of significant endosonographic abnormality in the visualized portion of the liver. Homogeneous parenchyma and no focal pathology were identified. Diffuse wall thickening was visualized endosonographically in the fundus of the stomach. This appeared to primarily be due to thickening within the intramural wall, but the wall layer could not be determined. The gastric wall measured up to 13 mm in thickness. Many malignant-appearing lymph nodes were visualized in the celiac region (level 20). The largest measured 11 mm by 10 mm in maximal cross-sectional diameter. The nodes were oval, hypoechoic and had well defined margins. Fine needle aspiration for cytology was performed. Color Doppler imaging was utilized prior to needle puncture to confirm a lack of significant vascular structures within the needle path. Five passes were made with the 22 gauge needle (Hashtrack Pro-core) using a transgastric approach. A stylet was used. A newspaper writer was present to evaluate the adequacy of the specimen. Final cytology results are pending. Estimated blood loss was minimal. An oval mass was identified in the pancreatic neck. The mass was hypoechoic. The mass measured 9 mm by 7 mm in maximal cross-sectional diameter. The endosonographic borders were poorly-defined. An intact interface was seen between the mass and the adjacent structures suggesting a lack of invasion. The remainder of the pancreas was examined. The endosonographic appearance of parenchyma and the upstream pancreatic duct indicated no duct dilation. An irregular mass was identified in the pancreatic body. The mass was hypoechoic. The mass measured 26 mm by 26 mm in maximal cross-sectional diameter. The endosonographic borders were poorly-defined. FNA not obtained today given the diffuse lymphadenopathy. Please note that the pancreatic tail mass was not evalauted today. There was no sign of significant endosonographic abnormality in the pancreatic head. Impression: - There was no sign of significant pathology in the ampulla. - There was no sign of significant pathology in the common bile duct. - There was no sign of significant pathology in the gallbladder. - There was no evidence of significant pathology in the visualized portion of the liver. - Wall thickening was seen in the fundus of the stomach. The thickening appeared to be primarily within the intramural wall, but the wall layer could not be determined. - Many malignant-appearing lymph nodes were visualized in the celiac region (level 20). Fine needle aspiration performed. - Masses were identified in the pancreatic neck and body. FNA was not attempted given the diffuse celiac lymphadenopthy. Recommendation: - Return patient to hospital house for ongoing care. - Clear liquid diet today. - Await cytology results. Repeat eus could be offered is no tissue diagnosis is made. Amanda Foster D.O. Amanda Foster, DO 05/30/2019 4:52:04 PM This report has been signed electronically. Note Initiated On: 05/30/2019 3:17 PM Number of Addenda: 0 I attest to the content of the Intraoperative Record and orders documented therein, exceptions below {[id number]}
[2019-05-30] MEDS ORDERED: EPINEPHrine INJ 1 MG/ML AMP ONE (17:07)
--- NOTE | 2019-05-30 17:16 | Anesthesiology Progress Note ---
Date of Service May 30, 2019 Anesthesia Post Procedure Vital Signs Vital Signs: Temp Pulse Pulse Pulse Resp BP BP 05/30/19 17:15 110 H 16 113/83 05/30/19 17:05 113 H 20 121/86 05/30/19 16:55 116 H 23 119/81 05/30/19 16:45 108 H 20 115/66 05/30/19 16:39 36.8 C 108 H 18 131/86 05/30/19 15:12 37.2 C 105 H 18 137/92 05/30/19 07:30 36.8 C 100 H 18 163/97 H 05/29/19 23:43 36.4 C L 110 H 16 164/97 H 161/101 H 05/29/19 23:00 103 H 168/103 H 05/29/19 22:55 36.7 C 80 18 168/103 H 05/29/19 20:20 102 H 05/29/19 19:30 130 H 122 H 137/87 Pulse Ox 05/30/19 17:15 95 05/30/19 17:05 95 05/30/19 16:55 96 05/30/19 16:45 96 05/30/19 16:39 99 05/30/19 15:12 98 05/30/19 07:30 96 05/29/19 23:43 05/29/19 23:00 05/29/19 22:55 91 05/29/19 20:20 05/29/19 19:30 Pain Intensity Back: Pain Intensity: 6 Left Arm: Pain Intensity: 7 Transfer of Care Handoff Completed per policy Notes Mental Status: alert / awake / arousable and participated in evaluation Patient Amnestic to Procedure: Yes Nausea / Vomiting: adequately controlled Pain: adequately controlled Airway Patency, RR, SpO2: stable & adequate BP & HR: stable & adequate Hydration State: stable & adequate Anesthetic Complications: no major complications apparent
[2019-05-30] MEDS: PANTOprazole 40 MG TAB PO SCH (17:23)
[2019-05-30] MEDS: PANTOprazole 40 MG in DEXTROSE 5% 100 ML IV SCH ×2 (18:31→22:51)
[2019-05-30 18:43] LABS: Hematocrit (blood only) 37.1 % (42-52); Hemoglobin 12.6 g/dL (14.0-18.0); Mean Corpuscular Hemoglobin 29.6 pg (25-34); Mean Corpuscular Volume 87.3 fL (80-100); Mean Platelet Volume 9.9 fL (7.4-10.4); Platelet Count 299 K/uL (130-400); RDW Coefficient of Variation 12.5 % (11.5-14.5); RDW Standard Deviation 40.4 fL (36.4-46.3); Red Blood Count 4.25 M/uL (4.7-6.1); White Blood Count 9.81 K/uL (4.8-10.8)
[2019-05-30 19:06] LABS: Calcium 9.2 mg/dl (8.5-10.1); Creatinine Clr Calc Pharmacy 111.4 ml/min; Est GFR (African American) 105.4; Magnesium 1.6 mg/dl (1.8-2.4); Potassium 3.3 mmol/L (3.5-5.1)
[2019-05-30] MEDS ORDERED: POTASSIUM CHLORIDE / WTR 10 MEQ/100 ML PLCT IV ONE (19:16)
[2019-05-30] MEDS ORDERED: POTASSIUM CHLORIDE 20 MEQ TABCR PO STA (19:16)
[2019-05-30] MEDS: MAGNESIUM SULFATE / D5W 1 GM/100 ML BAG IV SCH ×2 (20:12→21:19)
--- NOTE | 2019-05-30 20:54 | Hospitalist Progress Note ---
Date of Service May 30, 2019 Assessment & Plan (1) Metastatic cancer: s/p EGD with EUS today. numerous gastric ulcers/ulcerations w/ nodular appearance. spoke with Dr Foster - gross appearance seemed c/w infiltration of the gastric lining by a cancerous process. that process appears metastatic based on the carcinomatosis seen on CT. early concern is possible lymphoma? biopsies pending; likely to return Sunday or Sunday. PPI drip thru the am. serial H/H's. (2) Pancreatic mass: see above "metastatic ca" lymphoma vs pancreatic vs other s/p EGD w/ EUS today (3) Upper GI bleedinnd gastric ulcerations clear liquid diet PPI drip serial H/H's (4) Gastric ulcer: due to infiltrating process by some form of cancer, s/p biopsies today. numerous ulcerations seen. PPI drip thru the am. clears. H/H tonight and in am. (5) Acute blood loss anemia: no need for PRBCs at this time serial H/H's PPI drip this is 2nd to numerous gastric ulcerations - see EGD report (6) Left-sided chest pain: uncertain etiology some thought that this was referred pain from the abdomen but that is uncertain either way he had no c/o pain today follow symptoms were not c/w ischemia, however (7) HTN (hypertension): continue home meds controlled (8) Elevated PSA: was to have outpatient MRI of prostate - will need to be rescheduled after d/c [place] [facility] [place] EGD/EUS findings would be highly unusual for metastatic prostate ca (9) Severe protein-calorie malnutrition: 20-25 pounds of weight loss last few months recommend boost product MVI etc due to some form of cancer (10) Hypokalemia: replace IV/PO repeat level am 2nd HCTZ usage at home (11) Hypomagnesemia: replace IV repeat level am 2nd HCTZ use (12) DVT prophylaxis: SCDs chemical means contraindicated updated; questions answered care d/w DR Foster from GI Subjective saw patient following his EGD/EUS he reported NO pain in his abd, chest or other location at bedside w/ numerous questions he has had no fevers/chills/sweats at home but at least 20+ pounds of weight loss no recent stomach upset w/ eating or pain no melena stool at home Review of Systems Constitutional: + fatigue and + weight loss; no fever and no chills Respiratory: no cough and no dyspnea Cardiovascular: no chest pain Gastrointestinal: no abdominal pain and no vomiting Physical Exam Constitutional: no acute distress and no altered mental status Eyes: no scleral abnormality ENMT: external ear and nose normal, oropharynx normal Respiratory: normal respiratory effort, lungs clear to auscultation Cardiovascular: Rate/Rhythm: regular rate and regular rhythm Heart Sounds: normal S1 and normal S2; no murmur Vessels: posterior tibial pulses present and dorsalis pedis pulses present; no JVD Extremities: no edema Gastrointestinal (Abdomen): normal bowel sounds, soft, nontender, no hepatosplenomegaly Psychiatric: Orientation: alert and oriented x 3 Lymphatic: no cervical lymphadenopathy Results & Data Vital Signs (Past 12 Hours) Vital Signs Temp Pulse Pulse Resp BP BP Pulse Ox 05/30/19 20:36 36.8 C 97 H 18 129/59 L 96 05/30/19 19:38 36.8 C 107 H 18 116/78 98 05/30/19 18:38 37.0 C 111 H 18 113/73 97 05/30/19 18:05 37 C 112 H 16 139/80 97 05/30/19 17:49 36.7 C 105 H 16 124/81 95 05/30/19 17:35 36.9 C 113 H 14 114/68 97 05/30/19 17:15 110 H 16 113/83 95 05/30/19 17:05 113 H 20 121/86 95 05/30/19 16:55 116 H 23 119/81 96 05/30/19 16:45 108 H 20 115/66 96 05/30/19 16:39 36.8 C 108 H 18 131/86 99 05/30/19 15:12 37.2 C 105 H 18 137/92 98 Laboratory Results Laboratory Results - last 24 hr 05/30/19 05/30/19 05/30/19 18:21 18:21 Unknown WBC 9.81 RBC 4.25 L Hgb 12.6 L Hct 37.1 L MCV 87.3 MCH 29.6 MCHC 34.0 RDW Std Deviation 40.4 RDW Coeff of Nallely 12.5 Plt Count 299 MPV 9.9 Sodium 134 L Potassium 3.3 L Chloride 103 Carbon Dioxide 27 Anion Gap 4.0 BUN 13 Creatinine 0.79 Est Cr Clr Drug Dosing 111.4 Est GFR ( Amer) 105.4 Est GFR (Non-Af Amer) 91.0 BUN/Creatinine Ratio 16.0 Glucose 106 H Calcium 9.2 Magnesium 1.6 L Flow Cytometry Comment Pending PG Care Time/CCT Total # of Minutes Spent Total Time Spent with Patient: Total time spent is greater than 50% in coord ination of care (as documented) at patient's floor/unit and/or counseling patient: (1) Gastric ulcer Gastric ulcer chronicity: acute Gastric ulcer complication status: with hemorrhage Qualified Code(s): K25.0 - Acute gastric ulcer with hemorrhage (2) HTN (hypertension) Hypertension type: essential hypertension Qualified Code(s): I10 - Essential (primary) hypertension
[2019-05-31] MEDS: PANTOprazole 40 MG in DEXTROSE 5% 100 ML IV SCH ×4 (05:09→20:28)
[2019-05-31] MEDS: D5W AND NSS 1,000 ML IV SCH (05:09)
[2019-05-31 05:19] LABS: Hematocrit (blood only) 33.7 % (42-52); Hemoglobin 11.6 g/dL (14.0-18.0); Mean Corpuscular Hemoglobin 30.1 pg (25-34); Mean Corpuscular Hgb Conc 34.4 g/dL (32-36); Mean Corpuscular Volume 87.3 fL (80-100); Mean Platelet Volume 9.7 fL (7.4-10.4); Platelet Count 248 K/uL (130-400); RDW Coefficient of Variation 12.5 % (11.5-14.5); RDW Standard Deviation 39.9 fL (36.4-46.3); Red Blood Count 3.86 M/uL (4.7-6.1); White Blood Count 6.92 K/uL (4.8-10.8)
[2019-05-31 05:53] LABS: Calcium 8.6 mg/dl (8.5-10.1); Creatinine Clr Calc Pharmacy 117.4 ml/min; Est GFR (African American) 107.7; Est GFR (Non-African American) 92.9; Magnesium 1.8 mg/dl (1.8-2.4); Potassium 3.7 mmol/L (3.5-5.1)
[2019-05-31] MEDS: hydroCHLOROthiazide 25 MG TAB PO SCH (08:11)
[2019-05-31] MEDS: FENOFIBRATE NANOCRYSTALLIZED 145 MG TABLET PO SCH (08:11)
[2019-05-31] MEDS: GABAPENTIN 400 MG CAP PO SCH ×3 (08:11→20:28)
[2019-05-31] MEDS: VALSARTAN 80 MG TAB PO SCH (08:11)
[2019-05-31 10:53] LABS: Hematocrit (blood only) 32.8 % (42-52); Hemoglobin 11.1 g/dL (14.0-18.0)
--- NOTE | 2019-05-31 11:06 | Electrocardiogram Report ---
Test Reason : Blood Pressure : / mmHG Vent. Rate : 113 BPM Atrial Rate : 113 BPM P-R Int : 158 ms QRS Dur : 112 ms QT Int : 352 ms P-R-T Axes : 032 -88 030 degrees QTc Int : 482 ms Sinus tachycardia with Premature atrial complexes Left axis deviation Abnormal ECG When compared with ECG of 29-MAY-2019 10:32, Premature atrial complexes are now Present Confirmed by Qasim Rubalcava ([id number]) on 05/31/2019 11:06:22 AM Referred By: REFERRED SELF Confirmed By:Qasim Rubalcava
[2019-05-31 16:15] LABS: Hemoglobin 10.8 g/dL (14.0-18.0)
--- NOTE | 2019-05-31 16:57 | Hospitalist Progress Note ---
Date of Service May 31, 2019 Assessment & Plan (1) Metastatic cancer: [facility]. numerous gastric ulcers/ulcerations w/ nodular appearance. gross appearance concerning for infiltration of the gastric lining by a cancerous process. that process appears metastatic based on the carcinomatosis seen on CT. early concern is that of possible lymphoma. biopsies pending; likely to return Sunday or Sunday. (2) Pancreatic mass: see above "metastatic ca" lymphoma vs pancreatic vs other s/p EGD w/ EUS 05/30/2019 with biopsies (3) Upper GI bleedinnd gastric ulcerations as seen on EGD resulting acute blood loss anemia remains on PPI drip 1 gram drop overnight, then another 0.5gm drop through mid-day this could be ongoing slow bleeding and/or dilutional from IV fluids either way best plan is to REMAIN HOSPITALIZED through Sunday repeat H/H again tonight and at bedtime cont PPI drip could consider full liquids later today if H/H level off (4) Gastric ulcer: due to infiltrating process by some form of cancer, s/p biopsies. numerous ulcerations seen. see "upper GI bleeding" (5) Acute blood loss anemia: still no need for PRBCs at this time however there has been additional drop in H/H today see "upper GI bleeding" above cont PPI drip serial H/H's (6) Left-sided chest pain: uncertain etiology some thought that this was referred pain from the abdomen but that would be unusual either way he denies any recurrent chest pain (just left arm pain) follow symptoms did not suggest ischemia and troponin was negative (7) HTN (hypertension): continue home meds controlled (8) Elevated PSA: was to have outpatient MRI of prostate - will need to be rescheduled after d/c [place] [facility] [place] EGD/EUS findings would be highly unusual for metastatic prostate ca (9) Severe protein-calorie malnutrition: 20-25 pounds of weight loss last few months recommend boost product MVI etc due to some form of cancer (10) Hypokalemia: replaced/resolved (11) Hypomagnesemia: replaced/resolved 2nd HCTZ use (12) Hyponatremia: 2nd to volume depletion, HCTZ use, etc. resolved with IV fluids (13) Cervical spine disease: moderate on CT c-spine has spinal stenosis and neural foraminal stenosis at multiple levels likely cause of left arm symptoms cont to monitor no metastatic disease was seen on CT (14) Sinus tachycardia: uncertain etiology GI bleeding could potentially be causing it he previously drank etoh regularly but none in quite some time does not appear to be withdrawing if he still has this tomorrow consider echo (15) DVT prophylaxis: SCDs chemical means contraindicated due to GI bleeding no d/c today Subjective pt feeling well no dizziness no obvious melena (had stool this am) tolerating clears w/o abd pain main complaint is left arm numbness extending from base of neck/left shoulder down to the left hand -- this comes/goes no nausea/emesis walking the hallways anxioud to go home Review of Systems Constitutional: no fever, no chills, no sweats, no body aches, no fatigue and no anorexia Respiratory: no cough, no dyspnea and no dyspnea on exertion Cardiovascular: no chest pain, no paroxysmal nocturnal dyspnea and no palpitations Gastrointestinal: no abdominal pain Physical Exam Constitutional: no acute distress and no altered mental status ENMT: external ear and nose normal, oropharynx normal Respiratory: normal respiratory effort, lungs clear to auscultation Cardiovascular: Rate/Rhythm: regular rate and regular rhythm Heart Sounds: normal S1 and normal S2; no murmur Vessels: posterior tibial pulses present and dorsalis pedis pulses present; no JVD Extremities: no edema Gastrointestinal (Abdomen): normal bowel sounds, soft, nontender, no hepatos plenomegaly Neurologic: moves all extremities; no focal motor deficits (strength 5/5 x 4 extremities) Psychiatric: Orientation: alert and oriented x 3 Results & Data Vital Signs (Past 12 Hours) Vital Signs Temp Pulse Resp BP BP Pulse Ox 05/31/19 15:38 36.8 C 104 H 18 142/91 H 98 05/31/19 09:32 107 H 147/88 H 05/31/19 07:59 36.9 C 104 H 18 175/100 H 96 Laboratory Results Laboratory Results - last 24 hr 05/30/19 05/30/19 05/30/19 18:21 18:21 Unknown WBC 9.81 RBC 4.25 L Hgb 12.6 L Hct 37.1 L MCV 87.3 MCH 29.6 MCHC 34.0 RDW Std Deviation 40.4 RDW Coeff of Nallely 12.5 Plt Count 299 MPV 9.9 Sodium 134 L Potassium 3.3 L Chloride 103 Carbon Dioxide 27 Anion Gap 4.0 BUN 13 Creatinine 0.79 Est Cr Clr Drug Dosing 111.4 Est GFR ( Amer) 105.4 Est GFR (Non-Af Amer) 91.0 BUN/Creatinine Ratio 16.0 Glucose 106 H Calcium 9.2 Magnesium 1.6 L Flow Cytometry Comment Pending 05/31/19 05/31/19 05/31/19 04:57 04:57 10:45 WBC 6.92 RBC 3.86 L Hgb 11.6 L 11.1 L Hct 33.7 L 32.8 L MCV 87.3 MCH 30.1 MCHC 34.4 RDW Std Deviation 39.9 RDW Coeff of Nallely 12.5 Plt Count 248 MPV 9.7 Sodium 137 Potassium 3.7 Chloride 106 Carbon Dioxide 26 Anion Gap 5.0 BUN 8 D Creatinine 0.75 Est Cr Clr Drug Dosing 117.4 Est GFR ( Amer) 107.7 Est GFR (Non-Af Amer) 92.9 BUN/Creatinine Ratio 11.0 Glucose 104 H Calcium 8.6 Magnesium 1.8 Flow Cytometry Comment 05/31/19 15:55 WBC RBC Hgb 10.8 L Hct 32.0 L MCV MCH MCHC RDW Std Deviation RDW Coeff of Nallely Plt Count MPV Sodium Potassium Chloride Carbon Dioxide Anion Gap BUN Creatinine Est Cr Clr Drug Dosing Est GFR ( Amer) Est GFR (Non-Af Amer) BUN/Creatinine Ratio Glucose Calcium Magnesium Flow Cytometry Comment PG Care Time/CCT Total # of Minutes Spent Total Time Spent with Patient: Total time spent is greater than 50% in coordination of care (as documented) at patient's floor/unit and/or counseling patient: (1) Gastric ulcer Gastric ulcer chronicity: acute Gastric ulcer complication status: with hemorrhage Qualified Code(s): K25.0 - Acute gastric ulcer with hemorrhage (2) HTN (hypertension) Hypertension type: essential hypertension Qualified Code(s): I10 - Essential (primary) hypertension
[2019-05-31 21:51] LABS: Hematocrit (blood only) 31.8 % (42-52); Hemoglobin 10.8 g/dL (14.0-18.0)
[2019-06-01] MEDS: PANTOprazole 40 MG in DEXTROSE 5% 100 ML IV SCH ×2 (00:58→05:43)
[2019-06-01 06:37] LABS: Hematocrit (blood only) 31.8 % (42-52); Hemoglobin 10.9 g/dL (14.0-18.0); Mean Corpuscular Hemoglobin 29.7 pg (25-34); Mean Corpuscular Hgb Conc 34.3 g/dL (32-36); Mean Corpuscular Volume 86.6 fL (80-100); Mean Platelet Volume 9.9 fL (7.4-10.4); Platelet Count 281 K/uL (130-400); RDW Coefficient of Variation 12.4 % (11.5-14.5); RDW Standard Deviation 39.5 fL (36.4-46.3); Red Blood Count 3.67 M/uL (4.7-6.1); White Blood Count 5.71 K/uL (4.8-10.8)
[2019-06-01 07:05] LABS: BUN Creatinine Ratio 9.5 (10-20); Calcium 8.9 mg/dl (8.5-10.1); Creatinine Clr Calc Pharmacy 135.5 ml/min; Est GFR (African American) 114.2; Est GFR (Non-African American) 98.6; Potassium 3.5 mmol/L (3.5-5.1)
[2019-06-01] MEDS: GABAPENTIN 400 MG CAP PO SCH (08:43)
[2019-06-01] MEDS: FENOFIBRATE NANOCRYSTALLIZED 145 MG TABLET PO SCH (08:43)
[2019-06-01] MEDS: VALSARTAN 80 MG TAB PO SCH (08:44)
[2019-06-01] MEDS: PANTOprazole 40 MG TAB PO SCH (08:44)
[2019-06-01] MEDS: hydroCHLOROthiazide 25 MG TAB PO SCH (08:44)
[2019-06-01] MEDS ORDERED: METOPROLOL TARTRATE 25 MG TAB PO SCH (14:00)
--- NOTE | 2019-06-01 14:47 | Discharge Summary ---
Date of Service date of admission - May 29, 2019 date of discharge - June 01, 2019 Admission HPI Per Admitting Provider 68 y/o male with HTN who presented c/o L lateral chest pain and itching. This has been ongoing for the last several weeks. It started on the L lateral chest wall and was more of an itching sensation. He mentioned it to a family member and was told it might be shingles. He never developed a rash and the itching became more intense, spreading around to his back and into his chest. It became more painful as well. He would also have radiation at times into his L UE. Pt was seen by PCP and images reveals bone spurs along his spine, so it was thought that this was more of a nerve related pain due to the bone spurs. Pt was started on gabapentin and tramadol. This did help initially, but then it wasn't as helpful. Dosing was increased and it did help again, however he started having nausea and constipation. He has been taking stool softeners for this. He has not been able to tolerate PO for about a month at this point and has lost about 20lbs over the last month. Pt denies fever, SOB, abd pain, LE pain or swelling. Pt was to have an MRI tomorrow for elevated PSA. Principal Diagnosis 1. multiple intra-abdominal masses with gastric infiltration - concerning for metastatic cancer 2. upper GI bleeding with resulting acute blood loss anemia - 2nd to multiple gastric ulcers Discharge Exam Constitutional no acute distress and no altered mental status Eyes no scleral abnormality ENMT external ear and nose normal, oropharynx normal Respiratory normal respiratory effort, lungs clear to auscultation Cardiovascular Rate/Rhythm: regular rhythm and + tachycardic Heart Sounds: normal S1 and normal S2; no murmur Vessels: posterior tibial pulses present and dorsalis pedis pulses present; no JVD Extremities: no edema Gastrointestinal (Abdomen) normal bowel sounds, soft, nontender, no hepatosplenomegaly Neurologic moves all extremities; no focal motor deficits (strength 5/5 x 4 extremities) Psychiatric Orientation: alert and oriented x 3 Lymphatic no cervical lymphadenopathy Discharge Data Allergies Allergy/AdvReac Type Severity Reaction Status Date / Time ibuprofen Allergy Severe ANAPHYLAXIS Verified 05/29/19 09:59 Consultations 1. [facility] Gastroenterology 2. General Surgery - Red Diaz DO Procedures Performed Operation Date: 05/30/19 Endoscopic Ultrasonography Upper, upper endoscopy with biopsies and epinephrine injection - Amanda Foster DO Ordered Studies 1. CT cervical spine - FINDINGS: Skeletal structures: The skeletal structures are osteopenic. There is no evidence of fracture or subluxation involving the cervical spine. Vertebral body height and alignment are maintained. Anterior osteophytes are seen throughout. The odontoid process and lateral masses are intact. The atlantoaxial articulation is preserved noting productive degenerative change. The spinous processes appear intact. There is mild to moderate multilevel cervical spondylosis. Uncovertebral and facet arthropathy contribute to neural foraminal stenosis at several levels. This is moderate on the left at C4-C5 and C6-C7. This is moderate on the right at C3-C4, C4-C5, C5-C6, and C6-C7. Intervertebral discs: There is moderate to advanced disc space narrowing seen at C5-C6 and C6-C7. Moderate disc space narrowing is seen at C3-C4 and C4-C5. Central canal: Posterior disc osteophyte complexes from C3-C4 through C6-C7 likely contribute to multilevel acquired compromise of the central canal. Soft tissues: The prevertebral and paraspinous soft tissues are within normal limits. There is atherosclerotic calcification of the carotid bulbs. Calvarium: The visualized calvarium at the skull base appears intact. Brain parenchyma: Partially visualized brain parenchyma the skull base is within normal limits. 2. CTA chest/CT thoracic spine - IMPRESSION: 1. There is no evidence of pulmonary embolus in the main, lobar, or segmental pulmonary arteries.. 2. No acute osseous abnormality is seen involving the thoracic spine. 3. There is no airspace consolidation or pleural effusion. 4. There are several pancreatic mass lesions identified as above. The largest is present in the pancreatic tail and measures up to 9 cm. This should be considered neoplasm until proven otherwise. Although atypical, this could represent a primary pancreatic neoplasm. Other strong differential considerations include pancreatic metastases or lymphoma. 5. There are pathologically enlarged upper abdominal and retroperitoneal lymph nodes. 6. There are numerous peritoneal nodules identified, likely representing peritoneal carcinomatosis. 7. There is peripancreatic inflammation and trace fluid. Correlate clinically and with serum amylase/lipase levels for evidence of acute pancreatitis. 8. Cardiomegaly. 3. Endoscopic ultrasound - Amanda Foster DO - Impression: - There was no sign of significant pathology in the ampulla. - There was no sign of significant pathology in the common bile duct. - There was no sign of significant pathology in the gall bladder. - There was no evidence of significant pathology in the visualized portion of the liver. - Wall thickening was seen in the fundus of the stomach. The thickening appeared to be primarily within the intramural wall, but the wall layer could not be determined. - Many malignant-appearing lymph nodes were visualized in the celiac region (level 20). Fine needle aspiration performed. - Masses were identified in the pancreatic neck and body. FNA was not attempted given the diffuse celiac lymphadenopathy. 4. EGD - Amanda Foster DO - Findings: The examined esophagus was normal. The Z-line was regular and was found 37 cm from the incisors. Clotted blood was found in the gastric fundus. Many non-obstructing oozing cratered gastric ulcers were found in the gastric fundus and on the posterior wall of the gastric body. The ulcers were nodular in appearance, suggestive of an infiltrating mass. Area was successfully injected with 10 mL of a 1:10,000 solution of epinephrine for hemostasis. Biopsies were taken with a cold forceps for histology. The pathology specimen was placed into Bottle A. Estimated blood loss was minimal. The examined duodenum was normal. 5. echocardiogram - * Hyperdynamic LV, EF 70% * grade 1 diastolic dysfunction * normal valve function * normal LV wall motion Hospital Course (1) Metastatic cancer: CTA chest - obtained at time of ER presentation due to complaints of left lateral chest discomfort and left arm discomfort - incidentally showed multiple masses in and around the pancreas. There was also suggestion of carcinomatosis and intra-abdominal lymphadenopathy. In light of the above [facility] was consulted. Dr Amanda Foster ultimately performed EGD with EUS on 05/30/2019. Numerous gastric ulcers/ulcerations w/ nodular appearance were seen on EGD. There was active oozing of blood from many of these ulcers (see below). The gross appearance was concerning for infiltration of the gastric lining by a cancerous process - ?lymphoma. That process appears metastatic based on the carcinomatosis seen on CT, etc. Following EGD an EUS was performed by Dr Foster. Multiple biopsies were obtained of several lymph nodes. (see EUS report) Pathology was pending at time of discharge. (2) Pancreatic mass: see above in "metastatic ca" lymphoma vs pancreatic ca vs other s/p EGD w/ EUS on 05/30/2019 with biopsies (3) Upper GI bleedinnd gastric ulcerations as seen on EGD resulting in acute blood loss anemia. Started on PPI drip following the EGD. Hb at admission was 14.3. Discharge Hb was 10.9. The hemoglobin remained ~11 for 24 hours prior to discharge. Patient was initially on clear-liquid diet and slowly advanced without difficulty. Patient was asked to take once daily ferrous sulfate 325mg after discharge. He will take protonix 40mg twice daily after discharge. Advised to STOP aspirin, avoid NSAIDs, and abstain from all alcohol (patient reported heavy beer consumption up until Mid-April 2019 but has been abstinent since). (4) Gastric ulcer: due to infiltrating process by some form of cancer, s/p biopsies. see above. numerous ulcerations seen. see "upper GI bleeding" PPI twice daily at discharge. (5) Acute blood loss anemia: Did not need PRBCs during the hospitalization. 2nd to upper GI bleeding from gastric ulcers. Discharge Hb was 10.9. See above. Patient will have a repeat CBC on 06/04/2019 for stability. (6) Left-sided chest pain: uncertain etiology. some thought that this was referred pain from the abdomen but that would be unusual. either way he denies any recurrent chest pain (just left arm pain). symptoms did not suggest ischemia and troponin was negative; echo also with normal wall motion. (7) HTN (hypertension): Due to hyponatremia, hypokalemia, and hypomagnesemia his HCTZ was discontinued. In its place he will start metoprolol 25mg BID. He will continue on valsartan 80mg once daily as previous. (8) Elevated PSA: Was to have outpatient MRI of prostate - will need to be rescheduled after d/c if deemed necessary. Follows with [facility] urology. The EGD/EUS findings would be highly unusual for metastatic prostate cancer. (9) Severe protein-calorie malnutrition: 20-25 pounds of weight loss over the last few months. 2nd to lymphoma vs pancreatic ca vs other. Consider boost/ensure, MVI, etc. (10) Hypokalemia: replaced/resolved while hospitalized 2nd HCTZ use (11) Hypomagnesemia: replaced/resolved 2nd HCTZ use (12) Hyponatremia: 2nd to volume depletion, HCTZ use, etc. discharge Na level was 133. HCTZ has been stopped. Patient will have a repeat BMP on 06/04/2019 to ensure stability. (13) Cervical spine disease: moderate on CT cervical spine has spinal stenosis and neural foraminal stenosis at multiple levels likely cause of left arm symptoms (pain, numbness) no metastatic disease was seen on CT for now will continue tramadol prn and gabapentin as previous has follow-up scheduled with Dr Liang Pablo from [facility] in [place] for the cervical spine DJD (14) Sinus tachycardia: Uncertain etiology. Patient was tachycardic from time of admission until time of discharge although HRs were down into the lower 100s at discharge. Even with hydration the HRs never completely normalized. He was NOT symptomatic from the tachycardia. TSH was wnl. I would not suspect a hemoglobin of 10.9 to cause the tachycardia. Echo showed EF 70%. He denied pain. He did report some anxiety. Alcohol withdrawal could cause tachycardia but he had not drank since mid- April thus highly unlikely. No pulmonary emboli on CTA chest. Since we were discontinuing the HCTZ we initiated metoprolol 25mg BID in its place. Heart rates should be followed closely as an outpatient. Could tachycardia be due to increased metabolic demand from the cancer process found?? Total Time Total Time Spent Total Time Spent (In Minutes): 45 Total Time Includes: Examination of the Patient, Discharge Planning and Medication Reconciliation Discharge Plan Discharge Items Patient Disposition: Home - Self-Care Reason For Visit: Pancreatic mass, Left arm discomforts Discharge Diagnosis: 1. 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 2. multiple tumors in and around the pancreas on CAT scan of your abdomen. 3. multiple gastric (stomach) ulcers on upper endoscopy as performed by Dr Amanda Foster. 4. weight loss - likely due to #2. 5. bleeding from the stomach ulcers - labs suggest bleeding has stopped. 6. biopsies of the stomach by Dr Foster - results are still pending. 7. low sodium, low potassium, low magnesium - due to your HCTZ water pill; this has been stopped. Activity: As commented below Activity Comment: take it easy for 2-3 days then gradually increase activity Non-emergency contact: Primary Care Provider Call non-emergency contact if: you have any medication questions, your symptoms worsen, your pain is not controlled, your pain is worsening, your pain is unusual for you, your pain is concerning for you and your temperature is above 101 Follow-up/Referrals: Anthony Ashley DO [Physician] - (we will arrange follow-up with the [facility] cancer center at [facility] ) Red Diaz DO [Surgeon] - (Please call to schedule an appointment with Dr. Diaz within 1-2 weeks of discharge from hospital) Amanda Foster [Physician] - (we will attempt to arrange follow-up for you with Dr Foster within the next 2 weeks ) Alyssa Darnell CRNP [Primary Care Provider] - (we will attempt to set you up with an appointment within the next week) Diet: Heart Healthy Addtl Attending Provider Instructions: You were admitted for left chest discomfort, left arm discomfort, left arm numbness, and weight loss. CAT scans of the neck, chest and abdomen ultimately revealed arthritis of your neck (at least moderate degree) as well as tumors in & around your pancreas. You were seen by the [facility] GI team, Dr Foster, who performed an upper endoscopy and specialized ultrasound. During the endoscopy multiple ulcers were seen in the stomach some of which were oozing small amounts of blood. Biopsies were then taken from the stomach to determine what was causing the tumors near the pancreas as well as the abnormalities in the stomach. These biopsies were pending. Labs on 05/31 and 06/01 suggest that any previous bleeding from the stomach has stopped. Your hemoglobin (red cell count) has been 10.9 to 11.1 since the family and divorce legal assistant of 05/31/19. The dark material in your stool is OLD blood. You may see this for another 1-3 days; again this is old bloody material. The acid reducers started during your hospital stay will help heal the ulcers. Your echocardiogram performed on 06/01/2019 was normal. This was done because of your elevated heart rates. A thyroid lab test was also normal. Pain, anxiety, and other things can raise your heart rates. Recommendations - 1. STOP your aspirin. 2. DO NOT TAKE any [id number] motrin, ibuprofen, naprosyn, alleve, goodie powders, etc. 3. DO NOT DRINK ALCOHOL. 4. STOP your valsartan-hydrochlorothiazide combination blood pressure pill. Again the hydrochlorothiazide was causing troubles with your sodium, potassium & magnesium - thus, it is being stoopped. 5. Medication recommendations - [facility] * metoprolol 25mg twice daily; first dose at bedtime on 06/01/19 * valsartan 80mg once daily; first dose on 06/02/19 * pantoprazole 40mg twice daily; first dose at bedtime on 06/01/19; this is your acid inspector health care facilities for your stomach * [id number] ferrous sulfate (iron) 325mg once daily for 2-3 months only * iron can cause constipation * iron can cause your stool to look dark (but not black like what you have been seeing) * take the iron with a glass of orange juice 6. Diet - avoid excessive amounts of caffeinated beverages (coffee, tea, soda), spicy foods, fried foods, red sauces, etc. Do this for at least 10 days to allow your stomach to heal. [place] diet is best. Follow-up - * you will need several follow-up appointments; we will work on these tomorrow and Sunday * you will need repeat blood work this 06/04/19; you can have these drawn at [facility] or [facility]; you do not need to be fasting for these Return to [facility] if - * you have persistent fevers over 101 degrees * you have severe abdominal pain * you have shortness of breath or chest pains * you have significant dizziness or lightheadedness * any other concerns Pending Studies at Discharge: Yes Studies:: biopsies from your stomach Stand-Alone Forms: My [facility] [employer], Opioid Pain Management, Smoking Cessation Medications and DC Order Prescriptions: New valsartan [Diovan] 80 mg Tablet 80 mg PO DAILY Qty: 30 RF: 3 pantoprazole 40 mg Tablet,Delayed Release (Dr/Ec) 40 mg PO BID Qty: 60 RF: 3 metoprolol tartrate 25 mg Tablet 25 mg PO BID Qty: 60 RF: 3 ferrous sulfate 325 mg (65 mg iron) tablet 325 mg PO DAILY Qty: 30 RF: 2 Continued gabapentin 400 mg capsule 400 mg PO TID RF: 0 tramadol 50 mg tablet 50 mg PO Q6 PRN (Reason: Pain) RF: 0 fenofibrate nanocrystallized 145 mg tablet 145 mg PO DAILY RF: 0 Discontinued aspirin 81 mg Tablet,Delayed Release (Dr/Ec) 81 mg PO DAILY RF: 0 valsartan-hydrochlorothiazide 80-12.5 mg tablet 1 tab PO DAILY RF: 0 Discharge Orders: Discharge Order (Routine); Ordered 06/01/19 Ordered By: Nick Braswell/Other Patient Handouts: Ulcer Bleeding Peptic Tx Admission Data Admit Date/Time: 05/29/19 14:22 Attending Provider: Nick Martinez Admit Provider: Terri Carbajal Primary Care Provider: Alyssa Darnell Other Providers: Terri Carbajal ; Jerri Torres ; Umberto Velasco Other Interventions: Discharge Summary Assessment (RN) Last Done: 06/01/19 14:18 DC Date/Time DO NOT enter until pt leaves facility: 06/01/19 15:35
== END 2019-06-01 15:35 | disposition home or self-care (01) | DRG 438 ==
LOC: ED 09:26 → 3N 14:22 → SUATTDRO 14:22 → 3N 15:21

== ENCOUNTER 2020-03-18 16:31 | Inpatient (IN) ==
[2020-03-18] MEDS ORDERED: SODIUM CHLORIDE 0.9% 1000ML 1,000 ML IV SCH (16:45)
--- NOTE | 2020-03-18 16:45 | Emergency Department Note ---
Impression & Plan Atrial fibrillation with rapid ventricular response, Weakness ED Provider Note NAME: PATI NAIK AGE: 69 SEX: M : 1950 ARRIVES VIA: Ambulance INFORMANT: Patient ED PROVIDER(S): Cy Garcia DO CHIEF COMPLAINT: Weakness HPI: Patient is a 69-year-old male with a past medical history of metastatic cancer which appears to be secondary to lymphoma who presents the ER for weakness. He notes he is unable to get up out of bed. He is unable to move while standing. This has been present for at least a month. He has been unable to get up to go to the bathroom at home. notes per report of EMS that he has been intermittently confused. He denies any headache or change in vision. No cough or runny nose. No chest pain or shortness of breath. No belly pain, nausea, vomiting. No dysuria, urgency or frequency. No other exacerbating or remitting factors. ROS: See above HPI for pertinent positives & negatives. A total of 10 systems reviewed and were otherwise negative. PAST MEDICAL HISTORY:See Below PAST SURGICAL HISTORY:See Below FAMILY HISTORY:See Below SOCIAL HISTORY:See Below HOME MEDICATIONS:See Below ALLERGIES:See Below VITALS:See Below PHYSICAL EXAMINATION: GENERAL: Sitting up in bed, alert, chronically ill-appearing, disheveled EYE EXAM: normal conjunctiva. OROPHARYNX: Dry mucous membranes NECK: supple, no nuchal rigidity, no adenopathy, non-tender LUNGS: Clear to auscultation. Normal chest wall mechanics HEART: Tachycardic and irregular regular, S1 normal and S2 normal ABDOMEN: abdomen soft, non-tender, normo-active bowel sounds, no masses, no rebound or guarding. BACK: Back is symmetrical on inspection and there is no deformity, no midline tenderness, no CVA tenderness. UPPER EXTREMITIES: upper extremities are grossly normal. LOWER EXTREMITIES: No pitting edema. NEURO EXAM: Alert oriented to person place or time, cranial nerves II through XII intact, no focal weakness in the arms or legs although extremely weak throughout MEDICAL DECISION MAKING: Patient is a 69-year-old male who presents the ER for diffuse weakness and the is unable to take care of him at home. Upon presentation he was found to be in A. fib with RVR. IV was established blood work was obtained. Labs show no significant leukocytosis. No anemia. INR was appropriate 1. BMP with a slightly elevated BUN. Magnesium slightly low at 1.7. LFTs bilirubin and troponin was negative. TSH was normal. Patient was given IV fluids. He was placed on a Cardizem drip and given a Cardizem bolus. He had a CT head which was unremarkable. Chest x-ray was unremarkable as well. He had no back pain to suggest cauda equina and weakness of the legs do appear to be consistent with deconditioning. Heart rate trended down. Patient was updated bedside. Discussed with the hospitalist for further evaluation Triage Nursing notes reviewed. Prior medical records reviewed Vital Signs: reviewed and remarkable for A. fib RVR 150 Differential diagnosis: Infection, dehydration, metabolic abnormality, hypo/hyperglycemia, electrolyte disturbance, anemia, hypoxia, cardiac sources, intracerebral event, toxicologic, neurologic, as well as other pathologies. ER treatment provided: See below Diagnostics interpreted by me: ECG: A. fib rate of 126 Left axis No PVCs Nonspecific ST wave changes in the high lateral leads and lateral leads QTC of 451 Cardiac Monitoring: An order was placed for continuous cardiac monitoring. The monitor shows a rate of 145 with Afib RVR rhythm. Laboratory studies: As stated above and show below. Imaging studies: Portable AP upright 1 view of the chest shows no focal infiltrate or pneumothorax CT head shows no acute pathology Consultation(s): Discussed with hospitalist for further evaluation Dr. Derrell Espinal ED COURSE: Procedures: none Critical Care: I have personally spent 40 minutes of critical care time in the direct management of this patient. This includes bedside care, interpretation of diagnostic studies, and testing, discussion with consultants, patient, and family members, and other required patient management activities. This 40 minutes is in excess of all separately billable procedures. Past Med/Surg History Medical History (Updated 03/18/20 @ 22:53 by Cy Garcia DO) Acid reflux Cervical spine disease Gastric ulcer History of ASCVD HTN (hypertension) Hyperlipemia Non Hodgkin's lymphoma Pancreatic mass Vitamin D deficiency Surgical History History of esophagogastroduodenoscopy (EGD) History of hip surgery PINNING RIGHT HIP-AGE 17 Port-A-Cath in place (06/16/19) Access port placement. Dr. Lyn 06/16/19 Family History Father Myocardial infarction Heart disease Brother Cancer Hypertension Other Family history non-contributory Social History Smoking Status: Never smoker Second Hand Exposure: No; Hx Alcohol Use: Yes Alcohol type: beer Hx Substance Use: No Preferred Language: Slovenian Communication Ability: Effective Automation Engineer Required: No Beliefs That Will Affect Care: None marital status: Current Living Situation: Spouse current occupational status: retired Feels Safe at Home: Yes Assistive Devices: Denture - Upper and Denture - Lower Allergies Allergies Allergy/AdvReac Type Severity Reaction Status Date / Time ibuprofen Allergy Severe ANAPHYLAXIS Verified 03/18/20 18:33 Home Meds Home Medications Medication Instructions Recorded Confirmed metoprolol tartrate 25 mg tablet 25 mg PO BID tab 06/13/19 03/18/20 valsartan [Diovan] 80 mg PO QAM 06/13/19 03/18/20 ferrous sulfate 325 mg (65 mg 325 mg PO QAM 02/02/20 03/18/20 iron) tablet cholecalciferol (vitamin D3) 50,000 unit PO WK 03/18/20 03/18/20 gabapentin 400 mg PO HS 03/18/20 03/18/20 Previous Rx's Medication Instructions Recorded Wheelchair (Manual or Powered) #1 ea 02/10/20 Results & Data (ED) Vital Signs Vital Signs - 24 hr 03/18/20 16:37 03/18/20 16:48 03/18/20 16:56 Temperature 36.8 C Temperature Source Oral Pulse Rate 124 H 140 H 132 H Pulse Rate [Apical] Pulse Rate from SpO2 Sensor Pulse Rhythm [Apical] Respiratory Rate 21 20 21 Respiratory Effort / Characteristics Non-Labored Spontaneous Respiratory Depth Normal Respiratory Pattern Regular Blood Pressure 110/30 L 110/30 L Blood Pressure [Right Arm] Blood Pressure Mean 51 56 Blood Pressure Mean [Right Arm] Blood Pressure Position [Right Arm] Pulse Oximetry 100 Oxygen Delivery Method Room Air Sepsis Recent Fever Within 48 Hours No Sepsis New/Unexplained Change in Mental Status No Sepsis Action Taken by Nursing No Action Required 03/18/20 17:00 03/18/20 17:30 03/18/20 17:35 Temperature Temperature Source Pulse Rate 135 H 117 H 120 H Pulse Rate [Apical] Pulse Rate from SpO2 Sensor 107 H Pulse Rhythm [Apical] Respiratory Rate 14 20 14 Respiratory Effort / Characteristics Respiratory Depth Respiratory Pattern Blood Pressure 109/72 Blood Pressure [Right Arm] Blood Pressure Mean 77 Blood Pressure Mean [Right Arm] Blood Pressure Position [Right Arm] Pulse Oximetry Oxygen Delivery Method Sepsis Recent Fever Within 48 Hours Sepsis New/Unexplained Change in Mental Status Sepsis Action Taken by Nursing 03/18/20 18:02 03/18/20 18:27 03/18/20 18:28 Temperature Temperature Source Pulse Rate 120 H 127 H Pulse Rate [Apical] 127 H Pulse Rate from SpO2 Sensor 99 H Pulse Rhythm [Apical] Irregular Respiratory Rate 19 24 20 Respiratory Effort / Characteristics Non-Labored Spontaneous Respiratory Depth Normal Respiratory Pattern Blood Pressure 113/89 Blood Pressure [Right Arm] 113/89 Blood Pressure Mean 95 Blood Pressure Mean [Right Arm] 97 Blood Pressure Position [Right Arm] Lying Pulse Oximetry 98 99 Oxygen Delivery Method Room Air Sepsis Recent Fever Within 48 Hours Sepsis New/Unexplained Change in Mental Status Sepsis Action Taken by Nursing 03/18/20 18:30 03/18/20 19:00 Temperature Temperature Source Pulse Rate 121 H 107 H Pulse Rate [Apical] Pulse Rate from SpO2 Sensor 115 H Pulse Rhythm [Apical] Respiratory Rate 24 17 Respiratory Effort / Characteristics Respiratory Depth Respiratory Pattern Blood Pressure 107/71 94/74 L Blood Pressure [Right Arm] Blood Pressure Mean 81 76 Blood Pressure Mean [Right Arm] Blood Pressure Position [Right Arm] Pulse Oximetry 98 Oxygen Delivery Method Sepsis Recent Fever Within 48 Hours Sepsis New/Unexplained Change in Mental Status Sepsis Action Taken by Nursing Laboratory Data Result diagrams: 03/18/20 17:02 03/18/20 17:02 Lab Results 03/18/20 03/18/20 03/18/20 Range/Units 17:02 17:02 17:02 WBC 9.14 (4.8-10.8) K/uL RBC 4.43 L (4.7-6.1) M/uL Hgb 13.3 L (14.0-18.0) g/dL Hct 38.1 L (42-52) % MCV 86.0 (80-100) fL MCH 30.0 (25-34) pg MCHC 34.9 (32-36) g/dL RDW Std Deviation 47.2 H (36.4-46.3) fL RDW Coeff of Nallely 15.0 H (11.5-14.5) % Plt Count 208 (130-400) K/uL MPV 10.2 (7.4-10.4) fL Immature Gran % (Auto) 0.7 % Neut % (Auto) 74.2 % Lymph % (Auto) 13.8 % [place] % (Auto) 10.9 % Eos % (Auto) 0.4 % Baso % (Auto) 0.0 % Neut # (Auto) 6.78 H (1.4-6.5) K/uL Lymph # (Auto) 1.26 (1.2-3.4) K/uL [place] # (Auto) 1.00 H (0.11-0.59) K/uL Eos # (Auto) 0.04 (0-0.5) K/uL Baso # (Auto) 0.00 (0-0.2) K/uL Immature Gran # (Auto) 0.06 H (0.00-0.02) K/uL PT 11.9 (9.0-12.0) Seconds INR 1.1 (0.9-1.1) Sodium 135 L (136-145) mmol/L Potassium 3.5 (3.5-5.1) mmol/L Chloride 99 (98-107) mmol/L Carbon Dioxide 25 (21-32) mmol/L Anion Gap 11.0 (3-11) BUN 36 H (7-18) mg/dl Creatinine 0.84 (0.6-1.4) mg/dl Est Cr Clr Drug Dosing 93.0 ml/min Est GFR ( Amer) 102.1 Est GFR (Non-Af Amer) 88.1 BUN/Creatinine Ratio 42.6 H (10-20) Glucose 97 (70-99) mg/dl Calcium 9.3 (8.5-10.1) mg/dl Magnesium 1.7 L (1.8-2.4) mg/dl Total Bilirubin 1.0 (0.2-1) mg/dl AST 39 H (15-37) U/L ALT 42 (12-78) U/L Alkaline Phosphatase 110 (45-117) U/L Troponin I < 0.015 (0-0.045) ng/ml Total Protein 6.5 (6.4-8.2) gm/dl Albumin 3.0 L (3.4-5.0) gm/dl Globulin 3.5 (2.5-4.0) gm/dl Albumin/Globulin Ratio 0.9 (0.9-2) TSH 0.664 (0.300-4.500) uIu/ml Administered Medications Acetaminophen (Acetaminophen 325 Mg Tab) 650 mg PO Q4H PRN PRN Reason: pain/fever Stop: 04/17/20 20:45 Last Admin: 03/18/20 22:31 Dose: 650 mg Documented by: [id number] Gabapentin (Gabapentin 400 Mg Cap) 400 mg PO HS [facility] Stop: 04/17/20 20:59 Last Admin: 03/18/20 22:26 Dose: 400 mg Documented by: [id number] Magnesium Sulfate/Dextrose (Magnesium Sulfate / D5w) 1 gm in 100 mls @ 50 mls/hr IV Q2H [facility] Stop: 03/19/20 04:59 Last Admin: 03/18/20 22:26 Dose: 50 mls/hr Documented by: [id number] Melatonin (Melatonin 3 Mg Tab) 3 mg PO [facility] Stop: 04/17/20 20:59 Last Admin: 03/18/20 22:25 Dose: 3 mg Documented by: [id number] Metoprolol Tartrate (Metoprolol Tartrate 25 Mg Tab) 25 mg PO TID [facility] Stop: 04/17/20 20:59 Last Admin: 03/18/20 22:25 Dose: 25 mg Documented by: [id number] Discontinued Medications Diltiazem HCl (Diltiazem Hcl 5 Mg/Ml 5 Ml Vial) 10 mg IV NOW STA Stop: 03/18/20 18:23 Last Admin: 03/18/20 18:33 Dose: 10 mg Documented by: [id number] Cosigned by: [id number] Sodium Chloride (Nss 1000ml) 1,000 mls @ 999 mls/hr IV .Q1H1M ANA Stop: 03/18/20 17:45 Last Infusion: 03/18/20 18:10 Dose: 0 mls/hr Documented by: [id number] Admin: 03/18/20 17:09 Dose: 999 mls/hr Documented by: [id number] Diltiazem HCl 125 mg/ Dextrose 125 mls @ 5 mls/hr IV .Q24H ANA; Protocol Stop: 04/17/20 18:29 Last Titration: 03/18/20 20:47 Dose: 0 mg/hr, 0 mls/hr Documented by: [id number] Cosigned by: [id number] Admin: 03/18/20 19:15 Dose: 5 mg/hr, 5 mls/hr Documented by: [id number] Cosigned by: [id number] Miscellaneous (Stat Iv Infusion Titration Per Protocol) 1 ea N/A NOW STA Stop: 03/18/20 18:23 Last Admin: 03/18/20 19:39 Dose: 1 ea Documented by: [id number] Potassium Chloride (Potassium Chloride 20 Meq Tabcr) 40 meq PO NOW STA Stop: 03/18/20 20:47 Last Admin: 03/18/20 22:43 Dose: 40 meq Documented by: [id number] Discharge Plan Visit Data Chief Complaint: Illness Stated Complaint: REFERRED BY DOCTOR, ILLNESS ED Provider: Cy Garcia Discharge Problem: Atrial fibrillation with rapid ventricular response, Weakness Patient Disposition: Admitted As Inpatient Discharge Instructions Interventions: ED Discharge Assessment Last Done: 03/18/20 20:00
--- NOTE | 2020-03-18 17:00 | XRay Report ---
XR chest 1V portable CLINICAL HISTORY: weakness COMPARISON STUDY: June 16, 2019 FINDINGS: There is mild elevation the right hemidiaphragm. There is a right-sided Mediport catheter. There is no failure. There is no focal pulmonary consolidation. There are no pleural effusions.[ IMPRESSION: No active disease in the chest. ACT 112: Negative or not required by law. Electronically signed by: Xavier Zaldivar M.D. 03/18/2020 4:59 PM
[2020-03-18 17:23] LABS: Eosinophils # (auto) 0.04 K/uL (0-0.5); Eosinophils % (auto) 0.4 %; Hematocrit (blood only) 38.1 % (42-52); Hemoglobin 13.3 g/dL (14.0-18.0); Immature Granulocytes # (auto) 0.06 K/uL (0.00-0.02); Immature Granulocytes % (auto) 0.7 %; Lymphocytes # (auto) 1.26 K/uL (1.2-3.4); Lymphocytes % (auto) 13.8 %; Mean Corpuscular Hgb Conc 34.9 g/dL (32-36); Mean Platelet Volume 10.2 fL (7.4-10.4); Monocytes % (auto) 10.9 %; Neutrophils # (auto) 6.78 K/uL (1.4-6.5); Neutrophils % (auto) 74.2 %; Platelet Count 208 K/uL (130-400); RDW Standard Deviation 47.2 fL (36.4-46.3); Red Blood Count 4.43 M/uL (4.7-6.1); White Blood Count 9.14 K/uL (4.8-10.8)
[2020-03-18 17:33] LABS: INR 1.1 (0.9-1.1); Prothrombin Time 11.9 Seconds (9.0-12.0)
[2020-03-18 17:42] LABS: BUN Creatinine Ratio 42.6 (10-20); Blood Urea Nitrogen 36 mg/dl (7-18); Calcium 9.3 mg/dl (8.5-10.1); Carbon Dioxide 25 mmol/L (21-32); Chloride 99 mmol/L (98-107); Est GFR (African American) 102.1; Est GFR (Non-African American) 88.1; Glucose 97 mg/dl (70-99); Magnesium 1.7 mg/dl (1.8-2.4); Potassium 3.5 mmol/L (3.5-5.1); Sodium 135 mmol/L (136-145)
[2020-03-18 17:51] LABS: Alanine Aminotransferase 42 U/L (12-78); Albumin Globulin Ratio 0.9 (0.9-2); Alkaline Phosphatase 110 U/L (45-117); Aspartate Aminotransferase 39 U/L (15-37); Globulin 3.5 gm/dl (2.5-4.0); Thyroid Stimulating Hormone 0.664 uIu/ml (0.300-4.500); Total Protein 6.5 gm/dl (6.4-8.2); Troponin I < 0.015 ng/ml (0-0.045)
--- NOTE | 2020-03-18 18:05 | CT Scan Report ---
CT head/brain wo con CLINICAL HISTORY: weakness HISTORY OF LYMPHOMA COMPARISON STUDY: Outside brain MRI dated 02/24/2020 TECHNIQUE: Axial CT of the brain is performed from the vertex to the skull base. IV contrast was not administered for this examination. A dose lowering technique was utilized adhering to the principles of ALARA. CT DOSE: 614.27 mGy.cm FINDINGS: No intra or extra-axial mass lesions are visualized. There is no CT evidence of acute cortical infarc tion. There is no evidence of midline shift. There is no acute hemorrhage. No calvarial fractures ar e visualized. There are patchy white matter hypodensities likely on a small vessel basis. There is no evidence of pathologic ventricular dilatation. There is no evidence of acute sinusitis IMPRESSION: No acute intracranial findings ACT 112: Negative or not required by law. Electronically signed by: Xavier Zaldivar M.D. 03/18/2020 6:03 PM
[2020-03-18] MEDS ORDERED: STAT IV Infusion **Titration per Protocol STA (18:22)
[2020-03-18] MEDS ORDERED: dilTIAZem HCl 5 MG/ML 5 ML VIAL IV STA (18:22)
[2020-03-18] MEDS ORDERED: dilTIAZem HCL 125 MG in DEXTROSE 5% 100 ML IV SCH (18:30)
--- NOTE | 2020-03-18 20:45 | History & Physical Report ---
Date of Service March 18, 2020 Assessment & Plan (1) Atrial fibrillation with RVR: New diagnosis. Asymptomatic unless his weakness from Sunday onward could be construed as symptomatic. Chads-Vasc is 2, making his stroke risk 2.2% per year. TSH is 0.66. No inciting etiologies that I see. - Increase his home metoprolol to TID - Metoprolol PRN - Replete K+, Mg - Hold anticoagulation until seen by Dr. Pablo - TTE ordered (2) Cervical spinal stenosis: Hx of cervical spinal stenosis. Per , they have seen Dr. Pablo in clinic and had even planned for an operation, but this was derailed by his lymphoma diagnosis and treatment. They have a visit scheduled, but not until May. - Consult orthopedics - Dr. Pablo (3) Sacral ulcer: Per RN, the patient has a sacral ulcer. His reports it is just new since Sunday and was not there prior. I could not examine it because the patient said he was "tired of my bullshit" and would not roll over for me. 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 This is presumed to be due to chemotherapy from his lymphoma treatment. - Continue home gabapentin HS (5) Lymphoma: In remission. Completed treatment in November 2019. - Monitor (6) DVT prophylaxis: Lovenox 40 mg SQ daily History of Present Illness Primary Care Provider: SHILO Vizcarra Mr. 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 The patient has been declining at home for some time. Initially, he had been encouraged by his neurologist to seek rehab placement, but he refused. A home physical therapist came on Sunday and did some exercises with him. He finished by getting him in bed, and the patient has been bedbound since then. His has been cleaning him up at home and he hasn't left the bed. The PT teachers assistant came again this week and had him in a wheelchair for some time, but then he was in bed again. When he was brought the ED, he was found to be in afib with RVR. This was completely out of the blue for the patient and the , and he has never had this before. He is a reluctant historian, but he denies any shortness of breath, chest pain, or palpitations. Allergies Allergy/AdvReac Type Severity Reaction Status Date / Time ibuprofen Allergy Severe ANAPHYLAXIS Verified 03/18/20 18:33 Home Medications Home Medications Medication Instructions Recorded Confirmed Type metoprolol tartrate 25 mg tablet 25 mg PO BID tab 06/13/19 03/18/20 History valsartan [Diovan] 80 mg PO QAM 06/13/19 03/18/20 History ferrous sulfate 325 mg (65 mg 325 mg PO QAM 02/02/20 03/18/20 History iron) tablet Wheelchair (Manual or Powered) #1 ea 02/10/20 03/04/20 Rx cholecalciferol (vitamin D3) 50,000 unit PO WK 03/18/20 03/18/20 History gabapentin 400 mg PO HS 03/18/20 03/18/20 History Past Med/Surg History Medical History Acid reflux Cervical spine disease Gastric ulcer History of ASCVD HTN (hypertension) Hyperlipemia Non Hodgkin's lymphoma Pancreatic mass Vitamin D deficiency Surgical History History of esophagogastroduodenoscopy (EGD) History of hip surgery PINNING RIGHT HIP-AGE 17 Port-A-Cath in place (06/16/19) Access port placement. Dr. Lyn 06/16/19 Family History Father Myocardial infarction Heart disease Brother Cancer Hypertension Other Family history non-contributory Social History Smoking Status: Never smoker Second Hand Exposure: No; Hx Alcohol Use: Yes Alcohol type: beer Hx Substance Use: No Preferred Language: Khmer Communication Ability: Effective Farm Manager Required: No Beliefs That Will Affect Care: None marital status: Current Living Situation: Spouse current occupational status: retired Feels Safe at Home: Yes Assistive Devices: Denture - Upper and Denture - Lower Review of Systems Review of Systems: All systems reviewed & are unremarkable except as noted in HPI & below Physical Exam Constitutional: WD/WN, vitals as above Eyes: EOM intact bilaterally; no conjunctival abnormality ENMT: external ear and nose normal, oropharynx normal Neck: trachea midline, no thyromegaly normal visual inspection Respiratory: normal respiratory effort, lungs clear to auscultation no respiratory distress Cardiovascular: Rate/Rhythm: + tachycardic and + irregularly irregular Heart Sounds: normal S1 and normal S2 Extremities: no edema Gastrointestinal (Abdomen): Inspection/Auscultation: abdomen normal to inspection; abdomen not distended Musculoskeletal: Head/Neck/Chest: normocephalic and head atraumatic Skin: no rashes, warm and dry Neurologic: moves all extremities and awake Psychiatric: Orientation: alert and oriented to person; + uncooperative Results & Data Results & Data ([facility]) Vital Signs (Past 12 Hours) Vital Signs Temp Pulse Pulse Resp BP BP Pulse Ox 03/18/20 20:00 102 H 16 104/76 96 03/18/20 19:30 106 H 16 102/76 94 03/18/20 19:00 107 H 17 94/74 L 03/18/20 18:30 121 H 24 107/71 98 03/18/20 18:28 127 H 20 113/89 99 03/18/20 18:27 127 H 24 113/89 98 03/18/20 18:02 120 H 19 03/18/20 17:35 120 H 14 109/72 03/18/20 17:30 117 H 20 03/18/20 17:00 135 H 14 03/18/20 16:56 132 H 21 03/18/20 16:48 36.8 C 140 H 20 110/30 L 100 03/18/20 16:37 124 H 21 110/30 L PG Care Time/CCT Total # of Minutes Spent Total Time Spent with Patient: Total time spent is greater than 50% in coordination of care (as documented) at patient's floor/unit and/or counseling patient: Coding Level of Care Code 45954 Initial Inpt Care Lvl 3 Diagnoses Atrial fibrillation with RVR I48.91 Cervical spinal stenosis M48.02 Sacral ulcer L98.429 Mixed sensory-motor polyneuropathy G60.8 Lymphoma C85.90 DVT prophylaxis Z29.9
[2020-03-18] MEDS ORDERED: POTASSIUM CHLORIDE CRTAB 20 MEQ TABCR PO STA (20:46)
[2020-03-18] MEDS ORDERED: METOPROLOL TARTRATE 1 MG/ML VIAL IV PRN (20:46)
[2020-03-18] MEDS ORDERED: ONDANSETRON INJ 2 MG/ML 2 ML VIAL IV PRN (20:46)
[2020-03-18] MEDS: MELATONIN 3 MG TAB PO SCH (22:25)
[2020-03-18] MEDS: METOPROLOL TARTRATE 25 MG TAB PO SCH (22:25)
[2020-03-18] MEDS: MAGNESIUM SULFATE / D5W 1 GM/100 ML BAG IV SCH (22:26)
[2020-03-18] MEDS: GABAPENTIN 400 MG CAP PO SCH (22:26)
[2020-03-18] MEDS: ACETAMINOPHEN 325 MG TAB PO PRN (22:31)
[2020-03-19] MEDS: MAGNESIUM SULFATE / D5W 1 GM/100 ML BAG IV SCH ×3 (00:29→04:32)
--- NOTE | 2020-03-19 04:56 | Communication Note ---
Date of Service: March 19, 2020 James placed on shift prior for inability to void due to bladder scanned for >1900. James ordered updated
[2020-03-19 06:20] LABS: Hematocrit (blood only) 35.7 % (42-52); Hemoglobin 12.1 g/dL (14.0-18.0); Mean Corpuscular Hemoglobin 29.2 pg (25-34); Mean Corpuscular Hgb Conc 33.9 g/dL (32-36); Mean Corpuscular Volume 86.2 fL (80-100); Mean Platelet Volume 9.8 fL (7.4-10.4); Platelet Count 172 K/uL (130-400); RDW Coefficient of Variation 14.9 % (11.5-14.5); RDW Standard Deviation 47.3 fL (36.4-46.3); Red Blood Count 4.14 M/uL (4.7-6.1); White Blood Count 8.48 K/uL (4.8-10.8)
[2020-03-19 06:54] LABS: BUN Creatinine Ratio 44.3 (10-20); Calcium 8.8 mg/dl (8.5-10.1); Creatinine Clr Calc Pharmacy 129.5 ml/min; Est GFR (African American) 117.2; Est GFR (Non-African American) 101.2; Magnesium 2.6 mg/dl (1.8-2.4); Potassium 3.8 mmol/L (3.5-5.1)
[2020-03-19] MEDS: METOPROLOL TARTRATE 25 MG TAB PO SCH ×3 (08:44→19:43)
--- NOTE | 2020-03-19 10:03 | Hospitalist Progress Note ---
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 1. Afib with RVR - identified in ER, patient unaware of palpitations - received loading dose of diltiazem in ER and briefly placed on dilt drip. - unsure if he ever returned to sinus rhythm? - metoprolol increased to 25 TID to help control RVR. - started on eliquis 5 mg bid - ECHO 06/02: Grade 1 diastolic dysfunction with 70% EF - EKG showing Afib with RVR and left axis deviation, likely left ventricular hypertrophy 2. Cervical Spinal Stenosis - pt previously had plan to have surgical intervention with Dr. Pablo prior to cancer diagnosis - appreciate ortho's recommendation Urosepsis? - UA showing 2+ LE, 2+ blood - febrile to 38.2C in evening - blood cultures ordered, started on rocephin empirically - would explain tachycardia throughout the day and confusion Neuropathy - Gabapentin 400 HS Sacral ulcer - new as of last sunday - wound care consult Lymphoma - in remission - monitor CBCs DVT ppx: lovenox 40 mg FEN/GI: regular Code Status: FUll Code Dispo: PCU (2) Weakness: (3) Sacral ulcer: (4) Mixed sensory-motor polyneuropathy: (5) Cervical spinal stenosis: Admission and Anticipated Discharge Date Admission Date: March 18, 2020 Supervising Physician Co-Signing Physician Notes I also saw the patient with the resident physician and confirmed valerio portions of the history and physical examination. He has is at bedside; the patient himself seems somewhat confused, and the is able to provide most of the history. She reports a several week history of progressive weakness for which home health started to see the patient. It sounds as if they were trying to do some physical therapy and he really could not participate at all. Over the last several days, the weakness became more profound and he was struggling with activities of daily living. His only complaint is "weakness." reports that he has been eating and drinking very little. In the emergency department he was found to be in a rapid atrial fibrillation. He was originally started on a diltiazem drip ago he became hypotensive; in lieu of this, his metoprolol was increased from 50 twice daily to 50 3 times daily. Upon our exam this afternoon, he looks to be in either atrial fibrillation versus atrial flutter with rate between 120 and 140. He has no noted history of a-fib and has perception of his HR. He is not currently on anticoagulation - was being held pending surgical consultation. IMPRESSION AND PLAN Progressive weakness in setting of lymphoma New onset a-fib with RVR Dehydration Protein calorie malnutrition Cervical spinal stenosis Recommend small IV bolus to see if we can improve his hemodynamics. Repeat echocardiogram shows decreased EF compared to previous; unsure what part of this is merely rate-related? Consult cardiology. Start Eliqus; he is not an appropriate surgical candidate at this time. Urine culture. Subjective 69 yo M admitted for weakness. in talking to , it appears he has been confused for the past few days and not eating much. he denied any dysuria or changes in urinary symptoms. Review of Systems Constitutional: + weakness; no fever, no chills, no body aches and no fatigue Respiratory: no cough and no dyspnea Cardiovascular: no chest pain, no dyspnea and no edema Gastrointestinal: no abdominal pain, no nausea, no vomiting, no constipation and no diarrhea/loose stools Physical Exam Constitutional: + thin, + cachectic, + frail appearing and cooperative; not in distress Respiratory: normal respiratory effort; no respiratory distress and no retractions Auscultation: no crackles, no rales and no wheezes Gastrointestinal (Abdomen): Inspection/Auscultation: + scaphoid Percussion/Palpation: abdomen soft; abdomen nontender and no guarding Neurologic: unable to lift either leg off bed, able to bend knee R>L, plantar and dorsiflexion of feet intact, extensor arm compartment weaker than flexor, weak hand squeeze bilaterally Results & Data Results & Data ([facility]) Vital Signs (Past 12 Hours) Vital Signs Temp Pulse Resp BP Pulse Ox 03/19/20 07:36 36.6 C 120 H 19 101/74 96 03/19/20 03:38 36.6 C 94 H 16 91/63 L 94 03/19/20 00:33 91 H 84/66 L 03/19/20 00:04 36.6 C 100 H 20 82/58 L 96 03/18/20 22:03 109 H 103/74 Laboratory Results WBC 8.48 K/uL (4.8-10.8) 03/19/20 06:06 RBC 4.14 M/uL (4.7-6.1) L 03/19/20 06:06 Hgb 12.1 g/dL (14.0-18.0) L 03/19/20 06:06 Hct 35.7 % (42-52) L 03/19/20 06:06 MCV 86.2 fL (80-100) 03/19/20 06:06 MCH 29.2 pg (25-34) 03/19/20 06:06 MCHC 33.9 g/dL (32-36) 03/19/20 06:06 RDW Std Deviation 47.3 fL (36.4-46.3) H 03/19/20 06:06 RDW Coeff of Nallely 14.9 % (11.5-14.5) H 03/19/20 06:06 Plt Count 172 K/uL (130-400) 03/19/20 06:06 MPV 9.8 fL (7.4-10.4) 03/19/20 06:06 Immature Gran % (Auto) 0.7 % 03/18/20 17:02 Neut % (Auto) 74.2 % 03/18/20 17:02 Lymph % (Auto) 13.8 % 03/18/20 17:02 [place] % (Auto) 10.9 % 03/18/20 17:02 Eos % (Auto) 0.4 % 03/18/20 17:02 Baso % (Auto) 0.0 % 03/18/20 17:02 Neut # (Auto) 6.78 K/uL (1.4-6.5) H 03/18/20 17:02 Lymph # (Auto) 1.26 K/uL (1.2-3.4) 03/18/20 17:02 [place] # (Auto) 1.00 K/uL (0.11-0.59) H 03/18/20 17:02 Eos # (Auto) 0.04 K/uL (0-0.5) 03/18/20 17:02 Baso # (Auto) 0.00 K/uL (0-0.2) 03/18/20 17:02 Immature Gran # (Auto) 0.06 K/uL (0.00-0.02) H 03/18/20 17:02 PT 11.9 Seconds (9.0-12.0) 03/18/20 17:02 INR 1.1 (0.9-1.1) 03/18/20 17:02 Sodium 133 mmol/L (136-145) L 03/19/20 06:06 Potassium 3.8 mmol/L (3.5-5.1) 03/19/20 06:06 Chloride 101 mmol/L (98-107) 03/19/20 06:06 Carbon Dioxide 27 mmol/L (21-32) 03/19/20 06:06 Anion Gap 5.0 (3-11) 03/19/20 06:06 BUN 27 mg/dl (7-18) H 03/19/20 06:06 Creatinine 0.60 mg/dl (0.6-1.4) 03/19/20 06:06 Est Cr Clr Drug Dosing 129.5 ml/min 03/19/20 06:06 Est GFR ( Amer) 117.2 03/19/20 06:06 Est GFR (Non-Af Amer) 101.2 03/19/20 06:06 BUN/Creatinine Ratio 44.3 (10-20) H 03/19/20 06:06 Glucose 117 mg/dl (70-99) H 03/19/20 06:06 Calcium 8.8 mg/dl (8.5-10.1) 03/19/20 06:06 Magnesium 2.6 mg/dl (1.8-2.4) H 03/19/20 06:06 Total Bilirubin 1.0 mg/dl (0.2-1) 03/18/20 17:02 AST 39 U/L (15-37) H 03/18/20 17:02 ALT 42 U/L (12-78) 03/18/20 17:02 Alkaline Phosphatase 110 U/L (45-117) 03/18/20 17:02 Troponin I < 0.015 ng/ml (0-0.045) 03/18/20 17:02 Total Protein 6.5 gm/dl (6.4-8.2) 03/18/20 17:02 Albumin 3.0 gm/dl (3.4-5.0) L 03/18/20 17:02 Globulin 3.5 gm/dl (2.5-4.0) 03/18/20 17:02 Albumin/Globulin Ratio 0.9 (0.9-2) 03/18/20 17:02 TSH 0.664 uIu/ml (0.300-4.500) 03/18/20 17:[address]: negative CXR: no active disease Troponin: negative x1 Resident Activity Tracking Resident Involvement: Resident Care Provided Care Provided: Adult [facility] Medicine
--- NOTE | 2020-03-19 13:38 | XCELERA ---
[id number]
--- NOTE | 2020-03-19 13:56 | Orthopedic Consultation ---
Date of Consultation March 19, 2020 Assessment & Plan (1) Cervical spinal stenosis: I did review an MRI from June 2019. It does demonstrate diffuse multilevel cervical spondylosis with spinal stenosis but no gross cord compression or myelomalacia. He may have some underlying cervical spinal disease contributing to his arm weakness but would not entirely explain his presentation. It is probably map multifactorial nature. Certainly at this time with his health status and I would not recommend any surgical intervention. Present on Admission?: Yes History of Present Illness Reason for Consultation: Upper extremity weakness Attending Physician: Derrell Espinal MD History of Present Illness This is a 69-year-old male presents with multiple medical issues and a history of cervical spinal stenosis. He does note significant weakness to bilateral extremities particularly with grasp. Describes diffuse numbness. Allergies Allergy/AdvReac Type Severity Reaction Status Date / Time ibuprofen Allergy Severe ANAPHYLAXIS Verified 03/18/20 18:33 Home Medications Home Medications Medication Instructions Recorded Confirmed Type metoprolol tartrate 25 mg tablet 25 mg PO BID tab 06/13/19 03/18/20 History valsartan [Diovan] 80 mg PO QAM 06/13/19 03/18/20 History ferrous sulfate 325 mg (65 mg 325 mg PO QAM 02/02/20 03/18/20 History iron) tablet Wheelchair (Manual or Powered) #1 ea 02/10/20 03/04/20 Rx cholecalciferol (vitamin D3) 50,000 unit PO WK 03/18/20 03/18/20 History gabapentin 400 mg PO HS 03/18/20 03/18/20 History Patient History Medical History (Updated 03/18/20 @ 22:53 by Cy Garcia DO) Acid reflux Cervical spine disease Gastric ulcer History of ASCVD HTN (hypertension) Hyperlipemia Non Hodgkin's lymphoma Pancreatic mass Vitamin D deficiency Surgical History History of esophagogastroduodenoscopy (EGD) History of hip surgery PINNING RIGHT HIP-AGE 17 Port-A-Cath in place (06/16/19) Access port placement. Dr. Lyn 06/16/19 Family History Father Myocardial infarction Heart disease Brother Cancer Hypertension Other Family history non-contributory Social History Smoking Status: Never smoker Second Hand Exposure: No; Hx Alcohol Use: Yes Alcohol type: beer Hx Substance Use: No Preferred Language: Portuguese Communication Ability: Effective Wine Specialist Required: No Beliefs That Will Affect Care: None marital status: Current Living Situation: Spouse current occupational status: retired Feels Safe at Home: Yes Assistive Devices: Walker Physical Exam Physical Exam: In bed. He is somewhat distracted. He does demonstrate weak grasp testing bilaterally as well as biceps triceps and deltoids. He has no Lhermitte's phenomenon or Spurling signs. I am unable to elicit a Annalisa sign. Results & Data ([facility]) Vital Signs (Past 12 Hours) Vital Signs Temp Pulse Resp BP Pulse Ox 03/19/20 11:32 36.6 C 114 H 20 94/75 L 99 03/19/20 07:36 36.6 C 120 H 19 101/74 96 03/19/20 03:38 36.6 C 94 H 16 91/63 L 94
[2020-03-19] MEDS ORDERED: SODIUM CHLORIDE 0.9% 1000ML 500 ML IV ONE (14:30)
--- NOTE | 2020-03-19 17:39 | Cardiology Consultation ---
Date of Consultation March 19, 2020 Assessment & Plan (1) Atrial fibrillation with rapid ventricular response: The patient is not appear to have any obvious symptoms associated with his atrial fibrillation. Certainly more diffuse symptoms can be seen with atrial fibrillation such as weakness and fatigue. Perhaps this contributes to some degree to his current clinical status. He is not appear to be aware of any palpitations. He is not appear to be in heart failure. No evidence of cardiac ischemia. Her initial efforts will focus on rate control. He did not seem to tolerate a diltiazem infusion likely due to an element of intravascular depletion. However, titrating his oral beta-carola is a reasonable option. His dose was increased to has minimal response I think this can be easily increased to 50 mg t.i.d. tomorrow morning. Also, he appears to be a good candidate for use of digoxin. He has normal renal function and limited mobility. I think we should be able to control his ventricular rate with these 2 medications over the next few days titrating them gently and monitoring his hemodynamics appear He does have risk factors for thromboembolic events and should undergo anticoagulation. He has been started on apixaban at the appropriate dose. (2) Cardiomyopathy: He did seem to have some mildly reduced LV systolic function, especially when compared to prior echocardiograms. Whether this is related to his atrial fibrillation and an extended period of tachycardia is unclear. He did receive Adriamycin for his lymphoma and this is known to have the potential for cardiac toxicity. He did not endorse any symptoms consistent with ischemic heart disease nor does he have regional wall motion abnormality suggestive of a recent infarct. At this point I think we will concentrate on rate control. Once his rate is well controlled a switch metoprolol tartrate to an equivalent dose of metoprolol succinate would seem reasonable. We can re-evaluate his LV function in the outpatient setting once he has maintained reasonable rates for several weeks. History of Present Illness Reason for Consultation: Atrial fibrillation Requesting Physician: Melissa Attending Physician: René Arango DO History of Present Illness The patient is a 69-year-old gentleman without a known history of significant cardiac disease who was brought to the hospital for weakness. It seems that the patient's clinical status has been declining recently to the point where he now appears to be bed bound. At the time of presentation to the emergency room he was noted to he have an elevated heart rate and atrial fibrillation was diagnosed. He was initially placed on a diltiazem infusion but had some hypotension and this was discontinued. The patient can provide little relevant history. He seemed to be somewhat confused during our conversation. He did not endorse any specific symptom. He denies chest pain or sense of palpitation. He denies any breathing difficulty. He denies any coughing recently. He did report reduced appetite, but no specific difficulty eating. He reported having some help at home with his , his grandson in visiting nurses. But admits to not being ambulatory recently. Allergies Allergy/AdvReac Type Severity Reaction Status Date / Time ibuprofen Allergy Severe ANAPHYLAXIS Verified 03/18/20 18:33 Home Medications Home Medications Medication Instructions Recorded Confirmed Type metoprolol tartrate 25 mg tablet 25 mg PO BID tab 06/13/19 03/18/20 History valsartan [Diovan] 80 mg PO QAM 06/13/19 03/18/20 History ferrous sulfate 325 mg (65 mg 325 mg PO QAM 02/02/20 03/18/20 History iron) tablet Wheelchair (Manual or Powered) #1 ea 02/10/20 03/04/20 Rx cholecalciferol (vitamin D3) 50,000 unit PO WK 03/18/20 03/18/20 History gabapentin 400 mg PO HS 03/18/20 03/18/20 History Patient History Medical History Acid reflux Cervical spine disease Gastric ulcer History of ASCVD HTN (hypertension) Hyperlipemia Non Hodgkin's lymphoma Pancreatic mass Vitamin D deficiency Surgical History History of esophagogastroduodenoscopy (EGD) History of hip surgery PINNING RIGHT HIP-AGE 17 Port-A-Cath in place (06/16/19) Access port placement. Dr. Lyn 06/16/19 Family History Father Myocardial infarction Heart disease Brother Cancer Hypertension Other Family history non-contributory Social History Smoking Status: Never smoker Second Hand Exposure: No; Hx Alcohol Use: Yes Alcohol type: beer Hx Substance Use: No Preferred Language: Eritrean Communication Ability: Effective Electrical Fitter Required: No Beliefs That Will Affect Care: None marital status: Current Living Situation: Spouse current occupational status: retired Feels Safe at Home: Yes Assistive Devices: Walker Review of Systems Review of Systems: Unobtainable due to cognitive status Physical Exam Physical Exam: The patient is alert and oriented only to person. Mood and affect appeared normal. He answered some questions appropriately but at other times appear to have a poor understanding and confabulate it. HEENT: Pupils are equal and reactive to light and accommodation. Extraocular movements are intact. The sclerae are anicteric. Neuro: Cranial nerves intact Neck: Patient's neck is supple. He has palpable carotid pulses bilaterally without bruits on auscultation. There is no evidence of jugular venous distention. The thyroid is not enlarged. Lungs: Clear to auscultation bilaterally. He has good air movement without use of accessory muscles. No rales wheezes or rhonchi. Cardiac: Heart demonstrates an irregular rhythm and rapid rate. Normal S1 and S2. No murmurs on examination. Pulses: The patient has palpable radial pulses bilaterally that are equal in intensity Extremities: There was no evidence of hypoperfusion. There is no cyanosis or clubbing. There is no edema. Skin: I did not appreciate any rashes on examination today. Results & Data ([facility]) Vital Signs (Past 12 Hours) Vital Signs Temp Pulse Pulse Resp BP Pulse Ox 03/19/20 15:47 98 03/19/20 15:26 37.0 C 131 H 20 116/86 97 03/19/20 11:32 36.6 C 114 H 20 94/75 L 99 03/19/20 07:36 36.6 C 120 H 19 101/74 96 Laboratory Results Abnormal Lab Results 03/18/20 03/19/20 03/19/20 17:02 06:06 06:06 WBC 8.48 RBC 4.14 L Hgb 12.1 L Hct 35.7 L MCV 86.2 MCH 29.2 MCHC 33.9 RDW Std Deviation 47.3 H RDW Coeff of Nallely 14.9 H Plt Count 172 MPV 9.8 Sodium 135 L 133 L Potassium 3.5 3.8 Chloride 99 101 Carbon Dioxide 25 27 Anion Gap 11.0 5.0 BUN 36 H 27 H Creatinine 0.84 0.60 Est Cr Clr Drug Dosing 93.0 129.5 Est GFR ( Amer) 102.1 117.2 Est GFR (Non-Af Amer) 88.1 101.2 BUN/Creatinine Ratio 42.6 H 44.3 H Glucose 97 117 H Calcium 9.3 8.8 Magnesium 1.7 L 2.6 H Total Bilirubin 1.0 AST 39 H ALT 42 Alkaline Phosphatase 110 Troponin I < 0.015 Total Protein 6.5 Albumin 3.0 L Globulin 3.5 Albumin/Globulin Ratio 0.9 TSH 0.664 Diagnostic Findings An echocardiogram was obtained today which revealed mildly reduced LV systolic function. No significant valvular heart disease Chest x-ray did not reveal any acute cardiopulmonary process. Head CT did not reveal any acute intracranial process ECG Additional Comments: EKG demonstrated atrial fibrillation with rapid ventricular response. Left anterior fascicular block PG Care Time/CCT Total # of Minutes Spent Total Time Spent with Patient: Total time spent is greater than 50% in coordination of care (as documented) at patient's floor/unit and/or counseling patient: Coding Level of Care Code 06791 Initial Inpt Care Lvl 3 Diagnoses Atrial fibrillation with rapid ventricular response I48.91 Cardiomyopathy I42.9
[2020-03-19] MEDS ORDERED: DIGOXIN 0.25 MG TAB PO ONE (17:45)
[2020-03-19 17:51] LABS: Appearance Urine Cloudy (Clear); Bacteria Urine Automated Negative (Negative); Bilirubin Urine Negative (Negative); Blood Urine 2+ (Negative); Color Urine Dark Yellow; Glucose Urine UA Negative (Negative); Ketones Urine Negative (Negative); Leukocyte Esterase Urine 2+ (Negative); Nitrite Urine Negative (Negative); Protein Urine 2+ (Negative); Specific Gravity Urine 1.022 (1.000-1.030); Urobilinogen Urine Negative (Negative); WBC Urine Automated >30 /hpf (0-5); pH Urine 5.5 (4.5-7.5)
--- NOTE | 2020-03-19 18:24 | Electrocardiogram Report ---
Test Reason : Blood Pressure : / mmHG Vent. Rate : 126 BPM Atrial Rate : 131 BPM P-R Int : 000 ms QRS Dur : 102 ms QT Int : 312 ms P-R-T Axes : 000 -79 068 degrees QTc Int : 451 ms Atrial fibrillation with rapid ventricular response Left axis deviation Abnormal ECG When compared with ECG of 30-MAY-2019 18:31, Atrial fibrillation has replaced Sinus rhythm Confirmed by Bruno Nunez ([id number]) on 03/19/2020 6:24:18 PM Referred By: Alyssa Darnell Confirmed By:Juwan Nuenz
[2020-03-19] MEDS: MELATONIN 3 MG TAB PO SCH (19:43)
[2020-03-19] MEDS: GABAPENTIN 400 MG CAP PO SCH (19:43)
[2020-03-19] MEDS: APIXABAN 5 MG TABLET PO SCH (19:43)
[2020-03-19] MEDS: cefTRIAXone SODIUM 2,000 MG in DEXTROSE 5% 50 ML IV SCH (20:01)
[2020-03-20 07:17] LABS: Hematocrit (blood only) 36.6 % (42-52); Hemoglobin 12.7 g/dL (14.0-18.0); Immature Granulocytes # (auto) 0.12 K/uL (0.00-0.02); Immature Granulocytes % (auto) 1.1 %; Lymphocytes # (auto) 1.01 K/uL (1.2-3.4); Lymphocytes % (auto) 9.4 %; Mean Corpuscular Hemoglobin 29.9 pg (25-34); Mean Corpuscular Hgb Conc 34.7 g/dL (32-36); Mean Corpuscular Volume 86.1 fL (80-100); Mean Platelet Volume 10.2 fL (7.4-10.4); Monocytes # (auto) 0.77 K/uL (0.11-0.59); Monocytes % (auto) 7.2 %; Neutrophils # (auto) 8.79 K/uL (1.4-6.5); Neutrophils % (auto) 82.3 %; Platelet Count 164 K/uL (130-400); RDW Standard Deviation 47.4 fL (36.4-46.3); Red Blood Count 4.25 M/uL (4.7-6.1); White Blood Count 10.69 K/uL (4.8-10.8)
[2020-03-20 07:45] LABS: BUN Creatinine Ratio 26.1 (10-20); Calcium 8.8 mg/dl (8.5-10.1); Creatinine Clr Calc Pharmacy 108.6 ml/min; Est GFR (African American) 110.7; Est GFR (Non-African American) 95.5; Potassium 3.5 mmol/L (3.5-5.1)
[2020-03-20] MEDS: METOPROLOL TARTRATE 25 MG TAB PO SCH ×3 (08:44→21:08)
[2020-03-20] MEDS: APIXABAN 5 MG TABLET PO SCH ×2 (08:45→21:08)
[2020-03-20] MEDS: ACETAMINOPHEN 325 MG TAB PO PRN (08:54)
[2020-03-20] MEDS: cefTRIAXone SODIUM 2,000 MG in DEXTROSE 5% 50 ML IV SCH (08:54)
[2020-03-20] MEDS ORDERED: DIGOXIN 0.25 MG TAB PO ONE (09:00)
--- NOTE | 2020-03-20 10:14 | Hospitalist Progress Note ---
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 fib w/ RVR and UTI Afib with RVR w/ continued elevated HR w/ BP on the low side - identified in ER, patient unaware of palpitations - started diltiazem in ER and briefly placed on dilt drip. - metoprolol increased to 25 TID to help control RVR. PRN available for HR >110 - Digoxin added and increased by Cardiology - started on eliquis 5 mg bid, CHADSVASC 2 w/ 1 point for age - ECHO 06/02: Grade 1 diastolic dysfunction with 70% EF - EKG showing Afib with RVR and left axis deviation, likely left ventricular hypertrophy Cervical Spinal Stenosis - pt previously had plan to have surgical intervention with Dr. Pablo prior to cancer diagnosis - appreciate ortho's recommendation Urosepsis? - UA showing 2+ LE, 2+ blood - febrile with one time temp. of 38.2C, since resolved with abx. - blood cultures ordered, started on Rocephin empirically - would explain tachycardia throughout the day and confusion Neuropathy - Gabapentin 400 HS Sacral ulcer - new as of last Sunday - wound care consult Lymphoma - in remission - monitor CBCs DVT ppx: lovenox 40 mg FEN/GI: regular Code Status: FUll Code Dispo: PCU Admission and Anticipated Discharge Date Admission Date: March 18, 2020 Supervising Physician Co-Signing Physician Notes I also saw the patient independent of the resident and confirmed valerio portions of the history and physical examination. He is more oriented and conversational today. He still complains of generalized weakness and lack of appetite 119/61, 108, 36.5, 98% on room air. He had received a 500 cc bolus yesterday, with no signs of fluid overload today. His blood pressure is slightly improved -unsure if this is secondary to the fluid bolus, or perhaps identification and treatment of his apparent UTI. Cardiology started digoxin yesterday and increased today. With his borderline low blood pressures really no room to further titrate metoprolol. As noted previous, he had hypotension with initial trial of diltiazem drip IMPRESSION AND PLAN Progressive weakness in setting of lymphoma Urinary tract infection New onset a-fib with RVR Dehydration Protein calorie malnutrition Cervical spinal stenosis Continue Rocephin pending urine culture with sensitivity Blood cultures are also pending Toprol and digoxin; appreciate cardiology input If blood pressure drops below 100 systolic again, I would consider a 500 cc bolus. Andres Hagen is doing well this morning. He has improvement in his symptom of weakness. He was not having any urinary symptoms. We discussed that he had a UA that was concerning for infection and this could have been the cause of this abnormal heart rhythm and that we were treating the presumed infection with IV antibiotics. Review of Systems Review of Systems: Constitutional: denies fecers, chills Cardiac: denies chest pain, palpitations, presyncope Abd.: denies nausea, vomiting, constipation, diarrhea Pulm.: denies cough, shortness of breath : denies increased frequency, urgency, dysuria Physical Exam Constitutional: WD/WN, vitals as above Eyes: PERRL, conjunctivae normal, anicteric sclerae ENMT: external ear and nose normal, oropharynx normal Neck: normal visual inspection Respiratory: normal respiratory effort, lungs clear to auscultation Cardiovascular: RRR, no murmur, no edema Gastrointestinal (Abdomen): normal bowel sounds, soft, nontender, no hepatosplenomegaly Skin: no rashes, warm and dry Psychiatric: A+Ox3, euthymic affect Results & Data Results & Data ([facility]) Vital Signs (Past 12 Hours) Vital Signs Temp Pulse Pulse Pulse Resp BP Pulse Ox 03/20/20 08:44 156 H 03/20/20 08:42 110/73 98 03/20/20 07:50 36.6 C 129 H 19 106/74 99 03/20/20 04:00 36.9 C 146 H 19 106/64 95 03/20/20 00:00 36.8 C 131 H 19 103/78 96 03/19/20 22:59 117 H CBC Results Results Complete Blood Count Results: RBC 4.25 M/uL (4.7-6.1) L 03/20/20 WBC 10.69 K/uL (4.8-10.8) 03/20/20 Hgb 12.7 g/dL (14.0-18.0) L 03/20/20 Hct 36.6 % (42-52) L 03/20/20 Plt Count 164 K/uL (130-400) 03/20/20 Chemistry (BMP) Results BMP Results: Sodium 133 mmol/L (136-145) L 03/20/20 Potassium 3.5 mmol/L (3.5-5.1) 03/20/20 Chloride 99 mmol/L (98-107) 03/20/20 BUN 18 mg/dl (7-18) 03/20/20 Creatinine 0.69 mg/dl (0.6-1.4) 03/20/20 Glucose 101 mg/dl (70-99) H 03/20/20 Resident Activity Tracking Resident Involvement: Resident Care Provided Care Provided: Adult [facility] Medicine
--- NOTE | 2020-03-20 10:24 | Cardiology Progress Note ---
Date of Service March 20, 2020 Assessment & Plan Admission and Anticipated Discharge Date Admission Date: March 18, 2020 Subjective He denies any chest pain or chest pressure. Denies any shortness of breath. He denies any palpitations. Has any lightheadedness or dizziness. He has no lower extremity edema Results & Data ([facility]) Vital Signs (Past 12 Hours) Vital Signs Temp Pulse Pulse Pulse Resp BP Pulse Ox 03/20/20 08:44 156 H 03/20/20 08:42 110/73 98 03/20/20 07:50 36.6 C 129 H 19 106/74 99 03/20/20 04:00 36.9 C 146 H 19 106/64 95 03/20/20 00:00 36.8 C 131 H 19 103/78 96 03/19/20 22:59 117 H The patient is alert and oriented only to person. Mood and affect appeared normal. He answered some questions appropriately but at other times appear to have a poor understanding and confabulate it. Lungs: Clear to auscultation bilaterally. He has good air movement without use of accessory muscles. No rales wheezes or rhonchi. Cardiac: Heart demonstrates an irregular rhythm and rapid rate. Normal S1 and S2. No murmurs on examination. Pulses: The patient has palpable radial pulses bilaterally that are equal in intensity Extremities: There was no evidence of hypoperfusion. There is no cyanosis or clubbing. There is no edema. Impressions: 1. Atrial fibrillation with rapid ventricular response 2. Mild left ventricular dysfunction possibly tachycardia induced possible related to his previous Adriamycin exposure His rates are still fast without room to increase his metoprolol. We will add digoxin 0.25 mg 3 times daily today x3 doses and then 0.125 mg daily for better rate control. He remains on apixaban 5 mg twice daily to reduce his risk of car dioembolic events. He will need to be closely followed as an outpatient with regards to the risks and benefits of anticoagulation especially if there is a concern for falls. Depending on his rate control and where his blood pressure is ideally he should be on an DAVID inhibitor or an angiotensin receptor carola given his cardiomyopathy.
[2020-03-20] MEDS: DIGOXIN 0.25 MG TAB PO SCH ×3 (11:31→21:08)
[2020-03-20] MEDS: MELATONIN 3 MG TAB PO SCH (21:08)
[2020-03-20] MEDS: GABAPENTIN 400 MG CAP PO SCH (21:08)
[2020-03-21 07:06] LABS: Eosinophils # (auto) 0.01 K/uL (0-0.5); Eosinophils % (auto) 0.1 %; Hematocrit (blood only) 35.9 % (42-52); Hemoglobin 12.5 g/dL (14.0-18.0); Immature Granulocytes # (auto) 0.15 K/uL (0.00-0.02); Immature Granulocytes % (auto) 1.7 %; Lymphocytes # (auto) 1.05 K/uL (1.2-3.4); Lymphocytes % (auto) 11.7 %; Mean Corpuscular Hemoglobin 30.1 pg (25-34); Mean Corpuscular Hgb Conc 34.8 g/dL (32-36); Mean Corpuscular Volume 86.5 fL (80-100); Mean Platelet Volume 10.6 fL (7.4-10.4); Monocytes # (auto) 0.73 K/uL (0.11-0.59); Monocytes % (auto) 8.1 %; Neutrophils # (auto) 7.06 K/uL (1.4-6.5); Neutrophils % (auto) 78.4 %; Platelet Count 174 K/uL (130-400); Red Blood Count 4.15 M/uL (4.7-6.1)
[2020-03-21 07:31] LABS: BUN Creatinine Ratio 37.5 (10-20); Calcium 8.6 mg/dl (8.5-10.1); Creatinine Clr Calc Pharmacy 144.1 ml/min; Est GFR (African American) 124.3; Est GFR (Non-African American) 107.3; Potassium 3.6 mmol/L (3.5-5.1)
[2020-03-21] MEDS: APIXABAN 5 MG TABLET PO SCH ×2 (08:33→19:37)
[2020-03-21] MEDS: METOPROLOL TARTRATE 25 MG TAB PO SCH ×3 (08:33→19:37)
[2020-03-21] MEDS: cefTRIAXone SODIUM 2,000 MG in DEXTROSE 5% 50 ML IV SCH (08:36)
--- NOTE | 2020-03-21 10:14 | Hospitalist Progress Note ---
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 fib w/ RVR and UTI Atrial fibrillation with RVR w/ continued elevated HR w/ BP on the low side. - on tele has not been in sinus rhythm - identified in ER, patient unaware of palpitations - briefly placed on dilt drip. in ER - metoprolol increased to 25 TID to help control RVR. PRN available for HR >110 - Digoxin added and increased by Cardiology - started on Eliquis 5 mg bid, CHADSVASC 2 w/ 1 point for age - ECHO 06/02: Grade 1 diastolic dysfunction with 70% EF - EKG showing Afib with RVR and left axis deviation, likely left ventricular hypertrophy Cervical Spinal Stenosis - pt previously had plan to have surgical intervention with Dr. Pablo prior to cancer diagnosis - appreciate ortho's recommendation Urosepsis - UA showing 2+ LE, 2+ blood - febrile with one time temp. of 38.2C, since resolved with abx. - blood cultures ordered, started on Rocephin empirically on 03/19 - Grew out Enterococcus and was switched to Ampicillin - would explain tachycardia and confusion Altered mental status in a hospitalized patient with infection - appears to be improving over the weekend - continue to orient patient and address infection as above Poor oral intake in the setting of infection - continue to encourage PO intake - with improvement of infections and tachycardia intake should improve Neuropathy - Gabapentin 400 HS Sacral ulcer, new - wound care consult Lymphoma - in remission, next f/u scheduled for April - monitor CBCs Discharge - PT order placed as he has not been ambulating during hospitalization DVT ppx: lovenox 40 mg FEN/GI: regular Code Status: FUll Code Dispo: PCU Admission and Anticipated Discharge Date Admission Date: March 18, 2020 Supervising Physician Co-Signing Physician Notes I also saw the patient both independent of the resident - as well as a second time with the resident - and confirmed valerio portions of the history and physical examination. On the second exam I was also able to review and update the with regards to the patient's condition. He is more oriented and conversational today. His appetite is still decreased. When I first saw the patient had systolic readings in the 120s, in general his SBP has been trending up. Heart rate also with some variability but seems to be trending down. He is afebrile with pulse oximetries normal on room air Urine culture growing gram-positive cocci with sensitivities to follow IMPRESSION AND PLAN Progressive weakness in setting of lymphoma Urinary tract infection New onset a-fib with RVR Dehydration Protein calorie malnutrition Cervical spinal stenosis Continue Rocephin pending urine culture with sensitivity Blood cultures show no growth at 24 hours Toprol and digoxin; appreciate cardiology input; Toprol limited by low systolic blood pressures If blood pressure drops below 100 systolic again, I would consider a 500 cc bolus. PT/OT in AM, question if he will need inpatient rehabilitation. Subjective Ayo Hagen was doing, "good" this morning. was also in and she brought up that he was still somewhat confused but improved from last week. He was not eating well and had lost some weight over the last couple of days. Review of Systems Review of Systems: Constitutional: denies fevers, chills Cardiac: denies chest pain, palpitations Pulm.: denies cough, shortness of breath Abd.: denies nausea, vomiting, constipation, diarrhea Physical Exam Eyes: PERRL, conjunctivae normal, anicteric sclerae ENMT: external ear and nose normal, oropharynx normal Neck: normal visual inspection Respiratory: normal respiratory effort, lungs clear to auscultation Cardiovascular: RRR, no murmur, no edema Gastrointestinal (Abdomen): normal bowel sounds, soft, nontender, no hepatosplenomegaly Skin: no rashes, warm and dry Psychiatric: A+Ox3, euthymic affect Results & Data Results & Data ([facility]) Vital Signs (Past 12 Hours) Vital Signs Temp Pulse Pulse Pulse Resp BP Pulse Ox 03/21/20 07:56 36.4 C L 113 H 20 113/81 97 03/21/20 07:00 113 H 03/21/20 03:09 37.0 C 114 H 18 114/81 95 03/20/20 22:35 37.0 C 108 H 18 113/71 95
[2020-03-21] MEDS ORDERED: SODIUM CHLORIDE 0.9% 500 ML IV ONE (14:21)
[2020-03-21] MEDS: SODIUM CHLORIDE 0.9% 1000ML 1,000 ML IV SCH ×2 (15:27→23:06)
[2020-03-21] MEDS ORDERED: AMPICILLIN 500 MG in SODIUM CHLORIDE 0.9% 50 ML IV SCH (16:00)
[2020-03-21] MEDS: DIGOXIN 0.125 MG TAB PO SCH (17:26)
[2020-03-21] MEDS: AMPICILLIN 1,000 MG in SODIUM CHLOR 0.9% AD-VAN 50 ML IV SCH ×3 (17:26→22:20)
[2020-03-21] MEDS: MELATONIN 3 MG TAB PO SCH (19:37)
[2020-03-21] MEDS: GABAPENTIN 400 MG CAP PO SCH (19:37)
[2020-03-22] MEDS: AMPICILLIN 1,000 MG in SODIUM CHLOR 0.9% AD-VAN 50 ML IV SCH ×4 (03:54→21:21)
--- NOTE | 2020-03-22 07:19 | Hospitalist Progress Note ---
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 fib w/ RVR and UTI Atrial fibrillation with RVR - on tele has not been in sinus rhythm, continues to be in Afib. - identified in ER, patient unaware of palpitations - briefly placed on dilt drip. in ER - Metoprolol increased today to 50mg BID with improved control, plan to switch to succinate on discharge. - Continue Digoxin - started on Eliquis 5 mg bid, CHADSVASC 2 w/ 1 point for age - ECHO 06/02: Grade 1 diastolic dysfunction with 70% EF - EKG showing Afib with RVR and left axis deviation, likely left ventricular hypertrophy Cervical Spinal Stenosis - pt previously had plan to have surgical intervention with Dr. Pablo prior to cancer diagnosis - appreciate ortho's recommendation Urosepsis - UA showing 2+ LE, 2+ blood - febrile with one time temp. of 38.2C, since resolved with abx. - blood cultures ordered, started on Rocephin empirically on 03/19 - Grew out Enterococcus and was switched to Ampicillin - Continue Ampicillin 1g q6h, plan to convert to oral equivalent at discharge Altered mental status in a hospitalized patient with infection - Likely secondary to both infection, hospitalization stay, and delirium. - Expect improvement with clearing of infection, but may still be several days to weeks before back to baseline - Discussed with Case Management who have spoken with Family and feels inpatient rehab would be the next step for patient. Poor oral intake in the setting of infection - continue to encourage PO intake Neuropathy - Gabapentin 400 HS Sacral ulcer, new - wound care consult Lymphoma - in remission, next f/u scheduled for April - monitor CBCs Discharge - PT order placed as he has not been ambulating during hospitalization - Plan for discharge to inpatient rehab after stay. DVT ppx: lovenox 40 mg FEN/GI: regular Code Status: Full Code Dispo: PCU Admission and Anticipated Discharge Date Admission Date: March 18, 2020 Supervising Physician Co-Signing Physician Notes I personally examined the patient and verified all valerio points of history and exam, discussed case, and agree with decision making with Dr Elizabeth. feeling ok although disoriented and confused. notes no pain. no belly pain. vitals noted nad heent nc at mmm cardio rate controlled irreg irreg abd soft nd nt afib/RVR - titrating control - improving. anticoagulated on eliquis UTI - ampicillin AMS - ?delirium from above and UTI, compounded by hospital stay? will need to glean recent baseline mentation from protein/calorie malnutrition - labs and BMI would suggest mild, but pace of weight loss would suggest severe. deployment manager assisting, encourage intake. dispo - SNF / rehab emphasis at time of dc Subjective Patient evaluated at the bedside this AM. Patient stating that he was "feeling pretty good" and that he was not having any pain. He did appear somewhat confused when asked about his location and the time, but was able to appropriately tell me his full name and why he was in the hospital. States he do es not feel that his heart rate is in Afib and denies any chest pain, chest discomfort, SOB, dizziness. Review of Systems Constitutional: no fever, no chills and no body aches Eyes: no worsening vision Respiratory: no cough, no dyspnea and no pain on inspiration Cardiovascular: no chest pain, no palpitations and no lightheadedness Gastrointestinal: no abdominal pain, no nausea, no vomiting, no constipation and no diarrhea/loose stools Genitourinary: no dysuria (James catheter in place) Physical Exam Constitutional: well developed and well nourished; no acute distress and not ill appearing Eyes: normal visual emmanuel by confrontation and EOM intact bilaterally Neck: normal visual inspection Respiratory: normal respiratory effort, lungs clear to auscultation Cardiovascular: Rate/Rhythm: + irregularly irregular; + abnormal rate and + abnormal rhythm Gastrointestinal (Abdomen): normal bowel sounds, soft, nontender, no hepatosplenomegaly Neurologic: moves all extremities and + confused Psychiatric: Orientation: alert and oriented to person; + not oriented to place and + not oriented to time Eye Contact: + fair eye contact Affect: euthymic affect Genitourinary: James catheter in place Results & Data Results & Data ([facility]) Vital Signs (Past 12 Hours) Vital Signs Temp Pulse Pulse Resp BP Pulse Ox 03/22/20 03:29 36.9 C 104 H 18 133/91 97 03/22/20 00:12 36.9 C 103 H 18 131/90 99 11/08/20 23:46 101 H 03/21/20 19:34 36.8 C 104 H 18 134/91 97 Resident Activity Tracking Resident Involvement: Resident Care Provided Care Provided: Adult [facility]
[2020-03-22 07:31] LABS: Eosinophils # (auto) 0.07 K/uL (0-0.5); Hematocrit (blood only) 36.3 % (42-52); Hemoglobin 12.4 g/dL (14.0-18.0); Immature Granulocytes # (auto) 0.07 K/uL (0.00-0.02); Lymphocytes # (auto) 0.91 K/uL (1.2-3.4); Lymphocytes % (auto) 12.9 %; Mean Corpuscular Hemoglobin 29.7 pg (25-34); Mean Corpuscular Hgb Conc 34.2 g/dL (32-36); Mean Corpuscular Volume 86.8 fL (80-100); Mean Platelet Volume 10.4 fL (7.4-10.4); Monocytes # (auto) 0.61 K/uL (0.11-0.59); Monocytes % (auto) 8.7 %; Neutrophils # (auto) 5.39 K/uL (1.4-6.5); Neutrophils % (auto) 76.4 %; Platelet Count 205 K/uL (130-400); RDW Coefficient of Variation 14.9 % (11.5-14.5); RDW Standard Deviation 47.9 fL (36.4-46.3); Red Blood Count 4.18 M/uL (4.7-6.1); White Blood Count 7.05 K/uL (4.8-10.8)
[2020-03-22 08:15] LABS: Est GFR (African American) 124.3; Est GFR (Non-African American) 107.3; Potassium 3.7 mmol/L (3.5-5.1)
[2020-03-22 08:16] LABS: BUN Creatinine Ratio 32.8 (10-20); Calcium 8.8 mg/dl (8.5-10.1); Creatinine Clr Calc Pharmacy 143.6 ml/min
[2020-03-22] MEDS: APIXABAN 5 MG TABLET PO SCH ×2 (08:43→21:09)
[2020-03-22] MEDS: METOPROLOL TARTRATE 50 MG TAB PO SCH ×2 (08:45→21:08)
--- NOTE | 2020-03-22 09:06 | Cardiology Progress Note ---
Date of Service March 22, 2020 Assessment & Plan (1) Atrial fibrillation with rapid ventricular response: The patient is not appear to have any obvious symptoms associated with his atrial fibrillation. I would agree that the overall rate control appears to be improved. His dose of metoprolol was increased today. He will continue on digoxin. His blood pressure appears better. He is on appropriate anticoagulation. From a cardiac standpoint, he appears quite stable. Additional titration of his medications and attempts at rate control could be performed in the outpatient setting if he is otherwise ready for discharge. (2) Cardiomyopathy: He appears well compensated. At the time of discharge switch of metoprolol tartrate to metoprolol succinate would be recommended. Depending on what his blood pressure does over the next few days we could consider addition of lisinopril as well. Admission and Anticipated Discharge Date Admission Date: March 18, 2020 Subjective This morning the patient had no specific complaints. However, some of his answers appeared inappropriate And nonsensical. He was alert, but his cognition appeared to be somewhat impaired. He specifically denies any breathing difficulty or pain. He reports trying to get out of bed at times but was not confident that he has actually been out of bed at any time. Not currently aware of any palpitations. Review of Systems Review of Systems: Unobtainable due to cognitive status Physical Exam Physical Exam: The patient is alert and oriented only to person. Mood and af fect appeared normal. He answered some questions appropriately but at other times appear to have a poor understanding and confabulate. HEENT: Pupils are equal and reactive to light and accommodation. Extraocular movements are intact. The sclerae are anicteric. Neuro: Cranial nerves intact Neck: Patient's neck is supple. He has palpable carotid pulses bilaterally without bruits on auscultation. There is no evidence of jugular venous distention. The thyroid is not enlarged. Lungs: Clear to auscultation bilaterally. He has good air movement without use of accessory muscles. No rales wheezes or rhonchi. Cardiac: Heart demonstrates an irregular rhythm and Slightly elevated rate. Normal S1 and S2. No murmurs on examination. Pulses: The patient has palpable radial pulses bilaterally that are equal in intensity Extremities: There was no evidence of hypoperfusion. There is no cyanosis or clubbing. There is no edema. Skin: I did not appreciate any rashes on examination today. Results & Data ([facility]) Vital Signs (Past 12 Hours) Vital Signs Temp Pulse Pulse Pulse Resp BP Pulse Ox 03/22/20 07:28 36.9 C 112 H 18 132/99 99 03/22/20 03:29 36.9 C 104 H 18 133/91 97 03/22/20 00:12 36.9 C 103 H 18 131/90 99 03/21/20 23:46 101 H Laboratory Results Abnormal Lab Results 03/22/20 03/22/20 07:02 07:02 WBC 7.05 RBC 4.18 L Hgb 12.4 L Hct 36.3 L MCV 86.8 MCH 29.7 MCHC 34.2 RDW Std Deviation 47.9 H RDW Coeff of Nallely 14.9 H Plt Count 205 MPV 10.4 Immature Gran % (Auto) 1.0 Neut % (Auto) 76.4 Lymph % (Auto) 12.9 [place] % (Auto) 8.7 Eos % (Auto) 1.0 Baso % (Auto) 0.0 Neut # (Auto) 5.39 Lymph # (Auto) 0.91 L [place] # (Auto) 0.61 H Eos # (Auto) 0.07 Baso # (Auto) 0.00 Immature Gran # (Auto) 0.07 H Sodium 135 L Potassium 3.7 Chloride 103 Carbon Dioxide 26 Anion Gap 6.0 BUN 17 Creatinine 0.52 L Est Cr Clr Drug Dosing 143.6 Est GFR ( Amer) 124.3 Est GFR (Non-Af Amer) 107.3 BUN/Creatinine Ratio 32.8 H Glucose 99 Calcium 8.8 PG Care Time/CCT Total # of Minutes Spent Total Time Spent with Patient: Total time spent is greater than 50% in coordination of care (as documented) at patient's floor/unit and/or counseling p atient: Coding Level of Care Code 35277 Subseq Hosp Care Lvl 2 Diagnoses Atrial fibrillation with rapid ventricular response I48.91 Cardiomyopathy I42.9
[2020-03-22] MEDS: SODIUM CHLORIDE 0.9% 1000ML 1,000 ML IV SCH (12:28)
[2020-03-22] MEDS: DIGOXIN 0.125 MG TAB PO SCH (15:50)
--- NOTE | 2020-03-22 17:15 | Billing Data ---
Date of Service March 22, 2020 Coding Level of Care Code 33044 Subseq Hosp Care Lvl 3
[2020-03-22] MEDS: GABAPENTIN 400 MG CAP PO SCH (21:08)
[2020-03-22] MEDS: MELATONIN 3 MG TAB PO SCH (21:13)
[2020-03-23] MEDS: SODIUM CHLORIDE 0.9% 1000ML 1,000 ML IV SCH ×2 (02:07→15:42)
[2020-03-23] MEDS: AMPICILLIN 1,000 MG in SODIUM CHLOR 0.9% AD-VAN 50 ML IV SCH ×4 (03:15→22:06)
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
[2020-03-23 07:40] LABS: Eosinophils # (auto) 0.07 K/uL (0-0.5); Hemoglobin 12.7 g/dL (14.0-18.0); Immature Granulocytes # (auto) 0.09 K/uL (0.00-0.02); Immature Granulocytes % (auto) 1.3 %; Lymphocytes % (auto) 7.1 %; Mean Corpuscular Hemoglobin 29.6 pg (25-34); Mean Corpuscular Hgb Conc 34.3 g/dL (32-36); Mean Corpuscular Volume 86.2 fL (80-100); Monocytes # (auto) 0.88 K/uL (0.11-0.59); Monocytes % (auto) 12.6 %; Neutrophils # (auto) 5.46 K/uL (1.4-6.5); Platelet Count 246 K/uL (130-400); RDW Coefficient of Variation 14.7 % (11.5-14.5); RDW Standard Deviation 46.2 fL (36.4-46.3); Red Blood Count 4.29 M/uL (4.7-6.1)
[2020-03-23] MEDS: APIXABAN 5 MG TABLET PO SCH ×2 (08:00→22:03)
[2020-03-23] MEDS: METOPROLOL TARTRATE 50 MG TAB PO SCH (08:00)
[2020-03-23 08:16] LABS: BUN Creatinine Ratio 30.6 (10-20); Calcium 8.8 mg/dl (8.5-10.1); Creatinine Clr Calc Pharmacy 170.3 ml/min; Est GFR (African American) 133.2; Est GFR (Non-African American) 114.9; Potassium 3.5 mmol/L (3.5-5.1)
[2020-03-23] MEDS ORDERED: ERGOCALCIFEROL 50,000 UNITS 1250 MCG CAP PO ONE (09:17)
[2020-03-23] MEDS ORDERED: METOPROLOL TARTRATE 50 MG TAB PO ONE (11:00)
[2020-03-23] MEDS: DIGOXIN 0.125 MG TAB PO SCH (17:32)
--- NOTE | 2020-03-23 18:52 | Billing Data ---
Date of Service March 23, 2020 Coding Level of Care Code 56797 Subseq Hosp Care Lvl 3
[2020-03-23] MEDS: METOPROLOL TARTRATE 100 MG TAB PO SCH (22:02)
[2020-03-23] MEDS: MELATONIN 3 MG TAB PO SCH (22:02)
[2020-03-23] MEDS: GABAPENTIN 400 MG CAP PO SCH (22:02)
[2020-03-24] MEDS: AMPICILLIN 1,000 MG in SODIUM CHLOR 0.9% AD-VAN 50 ML IV SCH ×4 (05:11→21:49)
--- NOTE | 2020-03-24 06:37 | Hospitalist Progress Note ---
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 fib w/ RVR and UTI Atrial fibrillation with RVR - on tele has not been in sinus rhythm, continues to be in Afib. - identified in ER, patient unaware of palpitations - briefly placed on dilt drip. in ER - Cardiology consulted and following - Rates in the high 90's to 110's on Metoprolol Tartrate 100 BID. Will switch to succinate on discharge. - Continue Digoxin 0.125mg - started on Eliquis 5 mg bid, CHADSVASC 2 w/ 1 point for age - ECHO 06/02: Grade 1 diastolic dysfunction with 70% EF - EKG showing Afib with RVR and left axis deviation, likely left ventricular hypertrophy Hypokalemia -K at 3.2 this AM -Repleted with 40meq Klor-con Urosepsis - UA showing 2+ LE, 2+ blood - febrile with one time temp. of 38.2C, since resolved with abx. - blood cultures ordered, started on Rocephin empirically on 03/19 - Grew out Enterococcus and was switched to Ampicillin - Continue Ampicillin 1g q6h x7 total days, plan to convert to oral equivalent at discharge Altered mental status in a hospitalized patient with infection - Likely secondary to both infection, hospitalization stay, and delirium. - Expect improvement with clearing of infection, but may still be several days to weeks before back to baseline - Discussed with Case Management who have spoken with Family and feels inpatient rehab would be the next step for patient. Hypertension -Patient with occasional elevations of BP to the 160's/100's even with increase of metoprolol -Will continue to monitor -Per cardiology can consider adding lisinopril if pressures remain high. Poor oral intake in the setting of infection - continue to encourage PO intake - Also considering a concern for depression as co-factor for patients lack of interest in food. - Patient with noted history of cancer diagnosis and apparent father had history of cancer that the patient did not take well - Hard to evaluate for depression at this time due to patients delirium, but may be worth tackling in the outpatient setting once patient is more himself. Neuropathy - Gabapentin 400 HS Sacral ulcer, new - wound care consult Lymphoma - in remission, next f/u scheduled for April - monitor CBCs Cervical Spinal Stenosis - pt previously had plan to have surgical intervention with Dr. Pablo prior to cancer diagnosis - Will revisit upon discharge in outpatient. Discharge - PT order placed as he has not been ambulating during hospitalization - Plan for discharge to inpatient rehab after stay. - At this time patient is medically stable to discharge to rehab. DVT ppx: lovenox 40 mg FEN/GI: regular Code Status: Full Code Dispo: PCU Admission and Anticipated Discharge Date Admission Date: March 18, 2020 Supervising Physician Co-Signing Physician Notes I personally examined the patient and verified all valerio points of history and exam, discussed case, and agree with decision making with Dr Johnson. not really any meaningful HPI or ROS. HR control better. updated at the bedside. vitals noted nad heent nc at mmm cardio rate overall controlled irreg irreg on monitor. no pallor or icterus afib/RVR - titrating control - but better last ~24hrs - keep on same dose for now. anticoagulated on eliquis UTI - ampicillin for now, 7 days total effective treatment since complicated UTI AMS - ?delirium from above and UTI, compounded by hospital stay? protein/calorie malnutrition - labs and BMI would suggest mild, but pace of weight loss would suggest severe. tongue stitcher assisting, encourage intake. dispo - stable for rehab once bed available Subjective Patient evaluated at the bedside, though fairly delirious this AM. Was asking if we were at his place of work and whether or not I was having dinner as well. Somewhat about to oriented that he was in the hospital, but patient quickly becomes disoriented again. Was able to state that he was in no pain or discomfort and was able to breath freely. Review of Systems Review of Systems: Unobtainable due to cognitive status ROS fairly limited as patient was delirious. Of note patient denied SOB, chest pain, chest pressure, abdominal pain, visual changes. Physical Exam Constitutional: cooperative and comfortable; no acute distress and not ill appearing Eyes: normal visual emmanuel by confrontation and EOM intact bilaterally ENMT: external ear and nose normal, oropharynx normal Neck: normal visual inspection Respiratory: normal respiratory effort, lungs clear to auscultation Cardiovascular: Rate/Rhythm: + irregularly irregular; + abnormal rate and + abnormal rhythm Gastrointestinal (Abdomen): normal bowel sounds, soft, nontender, no hepatosplenomegaly Neurologic: moves all extremities and + confused Psychiatric: Orientation: alert, oriented to person and cooperative; + not oriented to place and + not oriented to time Eye Contact: + fair eye contact Affect: euthymic affect Results & Data Results & Data ([facility]) Vital Signs (Past 12 Hours) Vital Signs Temp Pulse Pulse Pulse Pulse Resp BP 03/24/20 04:03 36.8 C 90 16 130/99 03/24/20 00:33 119 H 03/23/20 23:19 36.5 C 98 H 18 144/110 H 03/23/20 19:39 37.2 C 109 H 26 H 157/98 H Pulse Ox 03/24/20 04:03 97 03/24/20 00:33 03/23/20 23:19 99 03/23/20 19:39 99 Resident Activity Tracking Resident Involvement: Resident Care Provided Care Provided: Adult Hospital Medicine
[2020-03-24 06:54] LABS: Basophils # (auto) 0.01 K/uL (0-0.2); Basophils % (auto) 0.1 %; Eosinophils # (auto) 0.11 K/uL (0-0.5); Eosinophils % (auto) 1.5 %; Hematocrit (blood only) 33.3 % (42-52); Hemoglobin 11.6 g/dL (14.0-18.0); Immature Granulocytes # (auto) 0.09 K/uL (0.00-0.02); Immature Granulocytes % (auto) 1.2 %; Lymphocytes # (auto) 0.72 K/uL (1.2-3.4); Lymphocytes % (auto) 9.8 %; Mean Corpuscular Hemoglobin 29.5 pg (25-34); Mean Corpuscular Hgb Conc 34.8 g/dL (32-36); Mean Corpuscular Volume 84.7 fL (80-100); Mean Platelet Volume 9.7 fL (7.4-10.4); Monocytes # (auto) 0.37 K/uL (0.11-0.59); Neutrophils # (auto) 6.04 K/uL (1.4-6.5); Neutrophils % (auto) 82.4 %; Platelet Count 281 K/uL (130-400); RDW Coefficient of Variation 14.4 % (11.5-14.5); RDW Standard Deviation 45.2 fL (36.4-46.3); Red Blood Count 3.93 M/uL (4.7-6.1); White Blood Count 7.34 K/uL (4.8-10.8)
[2020-03-24 07:06] LABS: BUN Creatinine Ratio 30.1 (10-20); Calcium 8.5 mg/dl (8.5-10.1); Creatinine Clr Calc Pharmacy 210.6 ml/min; Est GFR (African American) 144.6; Est GFR (Non-African American) 124.8; Potassium 3.2 mmol/L (3.5-5.1)
[2020-03-24] MEDS ORDERED: POTASSIUM CHLORIDE CRTAB 20 MEQ TABCR PO STA (07:36)
[2020-03-24] MEDS: METOPROLOL TARTRATE 100 MG TAB PO SCH ×2 (10:01→19:52)
[2020-03-24] MEDS: APIXABAN 5 MG TABLET PO SCH ×2 (10:01→19:53)
[2020-03-24] MEDS ORDERED: POTASSIUM CHLORIDE CRTAB 20 MEQ TABCR PO ONE (12:00)
[2020-03-24] MEDS: DIGOXIN 0.125 MG TAB PO SCH (16:31)
--- NOTE | 2020-03-24 17:46 | Billing Data ---
Date of Service March 24, 2020 Coding Level of Care Code 00433 Subseq Hosp Care Lvl 2
[2020-03-24] MEDS: MELATONIN 3 MG TAB PO SCH (19:52)
[2020-03-24] MEDS: GABAPENTIN 400 MG CAP PO SCH (19:53)
[2020-03-25] MEDS: AMPICILLIN 1,000 MG in SODIUM CHLOR 0.9% AD-VAN 50 ML IV SCH ×4 (04:19→22:16)
[2020-03-25] MEDS: HEPARIN 100 UNIT/ML 5ML FLUSH FLUSH PRN ×6 (06:13→23:03)
[2020-03-25 06:30] LABS: Basophils # (auto) 0.01 K/uL (0-0.2); Basophils % (auto) 0.1 %; Eosinophils % (auto) 1.3 %; Hematocrit (blood only) 34.6 % (42-52); Hemoglobin 11.8 g/dL (14.0-18.0); Immature Granulocytes % (auto) 1.3 %; Lymphocytes # (auto) 0.52 K/uL (1.2-3.4); Lymphocytes % (auto) 6.6 %; Mean Corpuscular Hemoglobin 29.4 pg (25-34); Mean Corpuscular Hgb Conc 34.1 g/dL (32-36); Mean Corpuscular Volume 86.1 fL (80-100); Mean Platelet Volume 9.6 fL (7.4-10.4); Monocytes # (auto) 0.83 K/uL (0.11-0.59); Monocytes % (auto) 10.5 %; Neutrophils # (auto) 6.34 K/uL (1.4-6.5); Neutrophils % (auto) 80.2 %; Platelet Count 327 K/uL (130-400); RDW Coefficient of Variation 14.8 % (11.5-14.5); RDW Standard Deviation 47.3 fL (36.4-46.3); Red Blood Count 4.02 M/uL (4.7-6.1)
[2020-03-25 06:58] LABS: Calcium 8.4 mg/dl (8.5-10.1); Creatinine Clr Calc Pharmacy 189.8 ml/min; Est GFR (African American) 138.5; Est GFR (Non-African American) 119.5; Potassium 3.5 mmol/L (3.5-5.1)
--- NOTE | 2020-03-25 07:10 | Hospitalist Progress Note ---
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 fib w/ RVR and UTI Atrial fibrillation with RVR - on tele has not been in sinus rhythm, continues to be in Afib. - identified in ER, patient unaware of palpitations - briefly placed on dilt drip. in ER - Cardiology consulted and following - Rates in the high 90's to 110's, stable, on Metoprolol Tartrate 100 BID. Will switch to succinate on discharge. - Continue Digoxin 0.125mg - started on Eliquis 5 mg bid, CHADSVASC 2 w/ 1 point for age - ECHO 06/02: Grade 1 diastolic dysfunction with 70% EF - EKG showing Afib with RVR and left axis deviation, likely left ventricular hypertrophy Hypokalemia -Resolved Urosepsis - UA showing 2+ LE, 2+ blood - febrile with one time temp. of 38.2C, since resolved with abx. - blood cultures ordered, started on Rocephin empirically on 03/19 - Grew out Enterococcus and was switched to Ampicillin - Continue Ampicillin 1g q6h x7 total days, plan to convert to oral equivalent at discharge Altered mental status in a hospitalized patient with infection - Likely secondary to both infection, hospitalization stay, and delirium. - Expect improvement with clearing of infection, but may still be several days to weeks before back to baseline - Discussed with Case Management who have spoken with Family and feels inpatient rehab would be the next step for patient. Hypertension -Patient with occasional elevations of BP to the 160's/100's even with increase of metoprolol -Will continue to monitor -Per cardiology can consider adding lisinopril if pressures remain high. Poor oral intake in the setting of infection - continue to encourage PO intake - Also considering a concern for depression as co-factor for patients lack of interest in food. - Patient with noted history of cancer diagnosis and apparent father had history of cancer that the patient did not take well - Hard to evaluate for depression at this time due to patients delirium, but may be worth tackling in the outpatient setting once patient is more himself. Neuropathy - Gabapentin 400 HS Sacral ulcer, new - wound care consult Lymphoma - in remission, next f/u scheduled for April - monitor CBCs Cervical Spinal Stenosis - pt previously had plan to have surgical intervention with Dr. Pablo prior to cancer diagnosis - Will revisit upon discharge in outpatient. Discharge - PT order placed as he has not been ambulating during hospitalization - Plan for discharge to inpatient rehab after stay. - At this time patient is medically stable to discharge to rehab. DVT ppx: Eliquis FEN/GI: regular Code Status: Full Code Dispo: M/S Telemetry, plan for DC to [facility] once authorization completed Admission and Anticipated Discharge Date Admission Date: March 18, 2020 Supervising Physician Co-Signing Physician Notes I personally examined the patient and verified all valerio points of history and exam, discussed case, and agree with decision making with Dr Johnson. not really any meaningful HPI or ROS. still waiting on rehab vitals noted nad heent nc at mmm cardio rate overall controlled irreg irreg on monitor. no pallor or icterus afib/RVR - titrating control - overall ipmroved. anticoagulation w eliquis UTI - continue ampicillin for now, 7 days total effective treatment since complicated UTI AMS - ?delirium from above and UTI, compounded by hospital stay? protein/calorie malnutrition - labs and BMI would suggest mild, but pace of weight loss would suggest severe. balance engineer assisting, encourage intake. dispo - stable for rehab once bed available Subjective Patient evaluated at the bedside this morning. States he is feeling well, no complaints at this time. Does state that he's a bit confused on where he is, but isn't very worried about it. Review of Systems Constitutional: no fever, no chills and no body aches Eyes: no worsening vision Respiratory: no cough, no dyspnea and no pain on inspiration Cardiovascular: no chest pain, no palpitations and no lightheadedness Gastrointestinal: no abdominal pain, no nausea, no vomiting, no constipation and no diarrhea/loose stools Physical Exam Constitutional: cooperative and comfortable; no acute distress and not ill appearing Eyes: normal visual emmanuel by confrontation and EOM intact bilaterally ENMT: external ear and nose normal, oropharynx normal Neck: normal visual inspection Respiratory: normal respiratory effort, lungs clear to auscultation Cardiovascular: Rate/Rhythm: + irregularly irregular; + abnormal rate and + abnormal rhythm Gastrointestinal (Abdomen): normal bowel sounds, soft, nontender, no hepatosplenomegaly Neurologic: moves all extremities and + confused Psychiatric: Orientation: alert, oriented to person and cooperative; + not oriented to place and + not oriented to time Eye Contact: + fair eye contact Affect: euthymic affect Results & Data Results & Data ([facility]) Vital Signs (Past 12 Hours) Vital Signs Temp Pulse Pulse Pulse Resp BP Pulse Ox 03/25/20 03:07 36.8 C 100 H 18 158/78 H 96 03/25/20 00:05 90 03/24/20 22:49 36.3 C L 94 H 18 112/83 99 Resident Activity Tracking Resident Involvement: Resident Care Provided Care Provided: Adult Hospital Medicine
[2020-03-25] MEDS: METOPROLOL TARTRATE 100 MG TAB PO SCH ×2 (09:11→22:11)
[2020-03-25] MEDS: APIXABAN 5 MG TABLET PO SCH ×2 (09:11→22:11)
[2020-03-25] MEDS: DIGOXIN 0.125 MG TAB PO SCH (16:16)
--- NOTE | 2020-03-25 19:13 | Billing Data ---
Date of Service March 25, 2020 Coding Level of Care Code 70170 Subseq Hosp Care Lvl 2
[2020-03-25] MEDS: GABAPENTIN 400 MG CAP PO SCH (22:11)
[2020-03-25] MEDS: MELATONIN 3 MG TAB PO SCH (22:11)
[2020-03-26] MEDS: AMPICILLIN 1,000 MG in SODIUM CHLOR 0.9% AD-VAN 50 ML IV SCH ×4 (03:05→21:57)
--- NOTE | 2020-03-26 06:27 | Hospitalist Progress Note ---
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 fib w/ RVR and UTI Atrial fibrillation with RVR - on tele has not been in sinus rhythm, continues to be in Afib -- suspected to have converted to sinus around 5PM on 03/25, confirmed sinus on EKG on 03/26 - identified in ER, patient unaware of palpitations - briefly placed on dilt drip. in ER - Cardiology consulted and following - Rates in the high 90's to 110's, stable, on Metoprolol Tartrate 100 BID. Will switch to succinate on discharge. - Continue Digoxin 0.125mg - started on Eliquis 5 mg bid, CHADSVASC 2 w/ 1 point for age - ECHO 06/02: Grade 1 diastolic dysfunction with 70% EF - EKG showing Afib with RVR and left axis deviation, likely left ventricular hypertrophy - Repeat EKG on 03/26, sinus rhythm replaced Afib Hypokalemia -Resolved Urosepsis - UA showing 2+ LE, 2+ blood - febrile with one time temp. of 38.2C, since resolved with abx. - blood cultures ordered, started on Rocephin empirically on 03/19 - Grew out Enterococcus and was switched to Ampicillin - Continue Ampicillin 1g q6h x7 total days, plan to convert to oral equivalent at discharge Altered mental status in a hospitalized patient with infection - Likely secondary to both infection, hospitalization stay, and delirium. - Expect improvement with clearing of infection, but may still be several days to weeks before back to baseline - Discussed with Case Management who have spoken with Family and feels inpatient rehab would be the next step for patient. Hypertension -Patient with occasional elevations of BP to the 160's/100's even with increase of metoprolol -Will continue to monitor -Per cardiology can consider adding lisinopril if pressures remain high. Poor oral intake in the setting of infection - continue to encourage PO intake - Also considering a concern for depression as co-factor for patients lack of interest in food. - Patient with noted history of cancer diagnosis and apparent father had history of cancer that the patient did not take well - Hard to evaluate for depression at this time due to patients delirium, but may be worth tackling in the outpatient setting once patient is more himself. Neuropathy - Gabapentin 400 HS Sacral ulcer, new - wound care consult Lymphoma - in remission, next f/u scheduled for April - monitor CBCs Cervical Spinal Stenosis - pt previously had plan to have surgical intervention with Dr. Pablo prior to cancer diagnosis - Will revisit upon discharge in outpatient. Discharge - PT order placed as he has not been ambulating during hospitalization - Plan for discharge to inpatient rehab after stay. - At this time patient is medically stable to discharge to rehab. - Insurance requested a Peer to Peer in regards to patients discharge to rehab at [facility] - Spoke with Dr. Payal Garcia for Peer to Peer who denied patient, recommended family appeal if they felt strongly that patient required rehab over SNF. - Passed information on to Case Management who will reach out to family in regards to insurances decision. DVT ppx: Eliquis FEN/GI: regular Code Status: Full Code Dispo: M/S Telemetry Admission and Anticipated Discharge Date Admission Date: March 18, 2020 Supervising Physician Co-Signing Physician Notes I personally examined the patient and verified all valerio points of history and exam, discussed case, and agree with decision making with Dr Johnson. not really any meaningful HPI or ROS. rehab denied, waiting on snf vitals noted nad heent nc at mmm cardio rate overall controlled now sinus. no pallor or icterus afib/RVR - rate controlled (actually converted) anticoagulated. UTI - continue ampicillin for 7 days total effective treatment since complicated UTI AMS - ?delirium (metabolic encephalopathy) from above and UTI, compounded by hospital stay? protein/calorie malnutrition - labs and BMI would suggest mild, but pace of weight loss would suggest severe. insurance specialist assisting, encourage intake. dispo - stable for snf since rehab denied Subjective Patient evaluated at the bedside this AM. Patient noting that he was feeling a little less energetic today, but was trying to eat more. Denied any chest pain, SOB, abdominal pain. Does note incontinence of urine. Review of Systems Constitutional: no fever and no chills Respiratory: no cough, no dyspnea and no pain on inspiration Cardiovascular: no chest pain, no dyspnea and no palpitations Gastrointestinal: no abdominal pain, no nausea, no vomiting, no constipation and no diarrhea/loose stools Genitourinary: + urinary incontinence Physical Exam Constitutional: cooperative and comfortable; no acute distress and not ill appearing Eyes: normal visual emmanuel by confrontation and EOM intact bilaterally ENMT: external ear and nose normal, oropharynx normal Neck: normal visual inspection Respiratory: normal respiratory effort, lungs clear to auscultation Cardiovascular: Rate/Rhythm: regular rate and regular rhythm Gastrointestinal (Abdomen): normal bowel sounds, soft, nontender, no hepatosplenomegaly Neurologic: moves all extremities and awake Psychiatric: Orientation: alert, oriented to person, oriented to place (knew we were in a medical center today) and cooperative; + not oriented to time Eye Contact: + fair eye contact Affect: euthymic affect Results & Data Results & Data ([facility]) Vital Signs (Past 12 Hours) Vital Signs Temp Pulse Pulse Pulse Resp BP Pulse Ox 03/26/20 03:54 37 C 87 20 145/91 H 97 03/25/20 23:22 97 H 03/25/20 23:19 36.8 C 80 18 136/80 94 03/25/20 22:08 99 H 153/101 H 03/25/20 19:47 36.9 C 85 20 162/78 H 95 Resident Activity Tracking Resident Involvement: Resident Care Provided Care Provided: Adult Hospital Medicine
[2020-03-26] MEDS: HEPARIN 100 UNIT/ML 5ML FLUSH FLUSH PRN ×4 (07:59→22:27)
[2020-03-26 08:20] LABS: Basophils # (auto) 0.01 K/uL (0-0.2); Basophils % (auto) 0.1 %; Eosinophils % (auto) 1.5 %; Hematocrit (blood only) 35.4 % (42-52); Hemoglobin 12.2 g/dL (14.0-18.0); Immature Granulocytes % (auto) 1.5 %; Lymphocytes # (auto) 0.62 K/uL (1.2-3.4); Lymphocytes % (auto) 9.1 %; Mean Corpuscular Hemoglobin 29.5 pg (25-34); Mean Corpuscular Hgb Conc 34.5 g/dL (32-36); Mean Corpuscular Volume 85.7 fL (80-100); Mean Platelet Volume 9.4 fL (7.4-10.4); Monocytes # (auto) 0.62 K/uL (0.11-0.59); Monocytes % (auto) 9.1 %; Neutrophils # (auto) 5.34 K/uL (1.4-6.5); Neutrophils % (auto) 78.7 %; Platelet Count 354 K/uL (130-400); RDW Coefficient of Variation 14.8 % (11.5-14.5); RDW Standard Deviation 46.6 fL (36.4-46.3); Red Blood Count 4.13 M/uL (4.7-6.1); White Blood Count 6.79 K/uL (4.8-10.8)
[2020-03-26] MEDS: METOPROLOL TARTRATE 100 MG TAB PO SCH ×2 (08:47→21:58)
[2020-03-26] MEDS: APIXABAN 5 MG TABLET PO SCH ×2 (08:48→21:58)
[2020-03-26 08:55] LABS: BUN Creatinine Ratio 27.5 (10-20); Calcium 8.7 mg/dl (8.5-10.1); Creatinine Clr Calc Pharmacy 176.5 ml/min; Est GFR (African American) 134.5; Potassium 3.4 mmol/L (3.5-5.1)
[2020-03-26] MEDS ORDERED: POTASSIUM CHLORIDE CRTAB 20 MEQ TABCR PO STA (09:24)
--- NOTE | 2020-03-26 12:32 | Electrocardiogram Report ---
Test Reason : Blood Pressure : / mmHG Vent. Rate : 078 BPM Atrial Rate : 078 BPM P-R Int : 166 ms QRS Dur : 100 ms QT Int : 392 ms P-R-T Axes : 051 -73 -05 degrees QTc Int : 446 ms Sinus rhythm with Premature atrial complexes Left axis deviation Incomplete right bundle branch block Abnormal ECG When compared with ECG of 18-MAR-2020 16:46, Sinus rhythm has replaced Atrial fibrillation Vent. rate has decreased BY 48 BPM Nonspecific T wave abnormality now evident in Inferior leads Confirmed by Arvind Veras ([id number]) on 03/26/2020 12:31:25 PM Referred By: Alyssa Darnell Confirmed By:Arvind Veras
[2020-03-26] MEDS: POLYETHYLENE (MIRALAX) 17 GM PACK PO SCH (13:56)
[2020-03-26] MEDS: DIGOXIN 0.125 MG TAB PO SCH (15:52)
--- NOTE | 2020-03-26 17:54 | Billing Data ---
Date of Service March 26, 2020 Coding Level of Care Code 20594 Subseq Hosp Care Lvl 2
--- NOTE | 2020-03-26 17:54 | Billing Data ---
Date of Service March 26, 2020 Coding Level of Care Code 67745 Subseq Hosp Care Lvl 2
[2020-03-26] MEDS: GABAPENTIN 400 MG CAP PO SCH (21:58)
[2020-03-26] MEDS: MELATONIN 3 MG TAB PO SCH (21:59)
[2020-03-27] MEDS: AMPICILLIN 1,000 MG in SODIUM CHLOR 0.9% AD-VAN 50 ML IV SCH ×4 (03:07→21:59)
[2020-03-27] MEDS: HEPARIN 100 UNIT/ML 5ML FLUSH FLUSH PRN ×4 (05:13→22:29)
[2020-03-27 06:26] LABS: Basophils # (auto) 0.01 K/uL (0-0.2); Basophils % (auto) 0.1 %; Eosinophils # (auto) 0.09 K/uL (0-0.5); Eosinophils % (auto) 1.3 %; Hemoglobin 12.5 g/dL (14.0-18.0); Immature Granulocytes # (auto) 0.11 K/uL (0.00-0.02); Immature Granulocytes % (auto) 1.6 %; Lymphocytes # (auto) 0.72 K/uL (1.2-3.4); Lymphocytes % (auto) 10.7 %; Mean Corpuscular Hemoglobin 29.8 pg (25-34); Mean Corpuscular Hgb Conc 34.7 g/dL (32-36); Mean Corpuscular Volume 85.7 fL (80-100); Mean Platelet Volume 9.9 fL (7.4-10.4); Monocytes # (auto) 0.63 K/uL (0.11-0.59); Monocytes % (auto) 9.3 %; Neutrophils # (auto) 5.19 K/uL (1.4-6.5); Platelet Count 398 K/uL (130-400); RDW Coefficient of Variation 14.8 % (11.5-14.5); RDW Standard Deviation 46.1 fL (36.4-46.3); White Blood Count 6.75 K/uL (4.8-10.8)
[2020-03-27 07:04] LABS: BUN Creatinine Ratio 25.5 (10-20); Calcium 8.7 mg/dl (8.5-10.1); Creatinine Clr Calc Pharmacy 185.9 ml/min; Est GFR (African American) 138.5; Est GFR (Non-African American) 119.5; Potassium 3.5 mmol/L (3.5-5.1)
[2020-03-27] MEDS: POLYETHYLENE (MIRALAX) 17 GM PACK PO SCH (08:43)
[2020-03-27] MEDS: METOPROLOL TARTRATE 100 MG TAB PO SCH ×2 (08:43→20:15)
[2020-03-27] MEDS: APIXABAN 5 MG TABLET PO SCH ×2 (08:43→20:16)
--- NOTE | 2020-03-27 08:54 | Hospitalist Progress Note ---
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 fib w/ RVR and UTI Atrial fibrillation with RVR - identified in ER, patient unaware of palpitations; subsequently converted to sinus rhythm - Cardiology consulted and following - Rates in the high 90's to 110's; stable, on Metoprolol Tartrate 100 BID - Continue Digoxin 0.125mg - started on Eliquis 5 mg bid, CHADSVASC 2 w/ 1 point for age - ECHO 06/02: Grade 1 diastolic dysfunction with 70% EF - EKG showing Afib with RVR and left axis deviation, likely left ventricular hypertrophy - Repeat EKG on 03/26, sinus rhythm replaced Afib Hypokalemia -Resolved Urosepsis - UA showing 2+ LE, 2+ blood - febrile with one time temp. of 38.2C, since resolved with abx. - blood cultures ordered, started on Rocephin empirically on 03/19 - Grew out Enterococcus and was switched to Ampicillin - Continue Ampicillin 1g q6h x7 total days (03/28 last day) Altered mental status in a hospitalized patient with infection - Likely secondary to both infection, hospitalization stay, and delirium. - Expect improvement with clearing of infection, but may still be several days to weeks before back to baseline - Discussed with Case Management who have spoken with Family and feels inpatient rehab would be the next step for patient. Hypertension -Patient with occasional elevations of BP to the 160's/100's even with increase of metoprolol -Will continue to monitor -Per cardiology can consider adding lisinopril if pressures remain high. Poor oral intake in the setting of infection - continue to encourage PO intake - Also considering a concern for depression as co-factor for patients lack of interest in food. - Patient with noted history of cancer diagnosis and apparent father had history of cancer that the patient did not take well - Hard to evaluate for depression at this time due to patients delirium, but may be worth tackling in the outpatient setting once patient is more himself. Neuropathy - Gabapentin 400 HS Sacral ulcer, new - wound care consult Lymphoma - in remission, next f/u scheduled for April - monitor CBCs Cervical Spinal Stenosis - pt previously had plan to have surgical intervention with Dr. Pablo prior to cancer diagnosis - Will revisit upon discharge in outpatient. Discharge planning - PT order placed as he has not been ambulating during hospitalization - Plan for discharge to inpatient rehab after stay. - At this time patient is medically stable to discharge to rehab. - Insurance denied rehab, with subsequent Peer to Peer w/ Dr. Payal Garcia denied patient, recommended family appeal if they felt strongly that patient required rehab over SNF - referral to [facility] Admission and Anticipated Discharge Date Admission Date: March 18, 2020 Supervising Physician Co-Signing Physician Notes I personally examined the patient and verified all valerio points of history and exam, discussed case, and agree with decision making with Dr Dawn. not really any meaningful HPI or ROS. feels ok. vitals noted nad heent nc at mmm cardio rate overall controlled now sinus. no pallor or icterus afib/RVR - rate controlled, anticoagulated. UTI - continue ampicillin for 7 days total effective treatment since complicated UTI, improved AMS - ?delirium (metabolic encephalopathy in the setting of a UTI) from above and UTI, compounded by hospital stay? protein/calorie malnutrition - labs and BMI would suggest mild, but pace of weight loss would suggest severe. call or contact centre operator assisting, encourage intake. dispo - stable for snf since rehab denied Subjective Patient feels about his normal self this morning, but does note that he continues to feel like he has a little less energy, per nursing staff at bedside patient has had limited oral intake and is not completing much of his plate. States that he does like the fruit that the bring and would eat more of that. Denied chest pain, shortness of breath, nausea, abdominal pain, changes in bowel movements, and changes in appetite. Review of Systems Review of Systems: All systems reviewed & are unremarkable except as noted in Subjective Physical Exam Constitutional: WD/WN, vitals as above + thin, + cachectic, + frail appearing, cooperative and comfortable; no acute distress, not ill appearing and not in distress Eyes: PERRL, conjunctivae normal, anicteric sclerae normal visual emmanuel by confrontation and EOM intact bilaterally Respiratory: normal respiratory effort, lungs clear to auscultation normal respiratory effort; no respiratory distress and no retractions Auscultation: no crackles, no rales and no wheezes Cardiovascular: RRR, no murmur, no edema Rate/Rhythm: regular rate and regular rhythm Gastrointestinal (Abdomen): normal bowel sounds, soft, nontender, no hepatosplenomegaly Inspection/Auscultation: + scaphoid Percussion/Palpation: abdomen soft; abdomen nontender and no guarding Neurologic: moves all extremities and awake Psychiatric: Orientation: alert, oriented to person, oriented to place (knew we were in a medical center today) and cooperative; + not oriented to time Eye Contact: + fair eye contact Results & Data Results & Data ([facility]) Vital Signs (Past 12 Hours) Vital Signs Temp Pulse Pulse Resp BP Pulse Ox 03/27/20 07:40 36.5 C 76 16 153/98 H 99 03/27/20 02:52 36.5 C 89 20 150/91 H 99 03/27/20 00:00 100 H 03/26/20 22:57 36.8 C 72 19 166/99 H 99 Laboratory Results 03/27/20 03/27/20 Range/Units 05:13 05:13 WBC 6.75 (4.8-10.8) K/uL RBC 4.20 L (4.7-6.1) M/uL Hgb 12.5 L (14.0-18.0) g/dL Hct 36.0 L (42-52) % MCV 85.7 (80-100) fL MCH 29.8 (25-34) pg MCHC 34.7 (32-36) g/dL RDW Std Deviation 46.1 (36.4-46.3) fL RDW Coeff of Nallely 14.8 H (11.5-14.5) % Plt Count 398 (130-400) K/uL MPV 9.9 (7.4-10.4) fL Immature Gran % (Auto) 1.6 % Neut % (Auto) 77.0 % Lymph % (Auto) 10.7 % Butts % (Auto) 9.3 % Eos % (Auto) 1.3 % Baso % (Auto) 0.1 % Neut # (Auto) 5.19 (1.4-6.5) K/uL Lymph # (Auto) 0.72 L (1.2-3.4) K/uL Butts # (Auto) 0.63 H (0.11-0.59) K/uL Eos # (Auto) 0.09 (0-0.5) K/uL Baso # (Auto) 0.01 (0-0.2) K/uL Immature Gran # (Auto) 0.11 H (0.00-0.02) K/uL Sodium 136 (136-145) mmol/L Potassium 3.5 (3.5-5.1) mmol/L Chloride 102 (98-107) mmol/L Carbon Dioxide 28 (21-32) mmol/L Anion Gap 6.0 (3-11) BUN 10 (7-18) mg/dl Creatinine 0.40 L (0.6-1.4) mg/dl Est Cr Clr Drug Dosing 185.9 ml/min Est GFR ( Amer) 138.5 Est GFR (Non-Af Amer) 119.5 BUN/Creatinine Ratio 25.5 H (10-20) Glucose 93 (70-99) mg/dl Calcium 8.7 (8.5-10.1) mg/dl Medications Administered Current Inpatient Medications Acetaminophen (Acetaminophen 325 Mg Tab) 650 mg PO Q4H PRN PRN Reason: pain/fever Stop: 04/17/20 20:45 Last Admin: 03/20/20 08:54 Dose: 650 mg Documented by: Apixaban (Apixaban 5 Mg Tablet) 5 mg PO BID ANA Stop: 04/18/20 20:59 Last Admin: 03/27/20 08:43 Dose: 5 mg Documented by: Digoxin (Digoxin 0.125 Mg Tab) 0.125 mg PO DAILY@1600 ANA Stop: 04/20/20 15:59 Last Admin: 03/26/20 15:52 Dose: 0.125 mg Documented by: Gabapentin (Gabapentin 400 Mg Cap) 400 mg PO HS ANA Stop: 04/17/20 20:59 Last Admin: 03/26/20 21:58 Dose: 400 mg Documented by: Heparin Sodium (Porcine) (Heparin 100 Unit/Ml 5ml Flush) 5 ml FLUSH PRN PRN PRN Reason: Flush Stop: 04/18/20 22:47 Last Admin: 03/27/20 05:13 Dose: 5 ml Documented by: Ampicillin Sodium 1,000 mg/ (Sodium Chloride) 50 mls @ 100 mls/hr IV Q6H ANA Stop: 03/28/20 15:59 Last Admin: 03/27/20 10:53 Dose: 100 mls/hr Documented by: Melatonin (Melatonin 3 Mg Tab) 3 mg PO HS [facility] Stop: 04/17/20 20:59 Last Admin: 03/26/20 21:59 Dose: 3 mg Documented by: Metoprolol Tartrate (Metoprolol Tartrate 1 Mg/Ml Vial) 5 mg IV Q2H PRN PRN Reason: HR > 110 Stop: 04/17/20 20:45 Metoprolol Tartrate (Metoprolol Tartrate 100 Mg Tab) 100 mg PO BID [facility] Stop: 04/22/20 20:59 Last Admin: 03/27/20 08:43 Dose: 100 mg Documented by: Vitamin D3: Non- Formulary Patient's Own Med 1 ea EXT Saab@0900 [facility]; Protocol Stop: 04/27/20 08:59 Ondansetron HCl (Ondansetron Inj 2 Mg/Ml 2 Ml Vial) 4 mg IV Q4H PRN PRN Reason: Nausea Stop: 04/17/20 20:45 Polyethylene Glycol (Polyethylene (Miralax) 17 Gm Pack) 17 gm PO DAILY [facility] Stop: 04/25/20 13:29 Last Admin: 03/27/20 08:43 Dose: 17 gm Documented by: Resident Activity Tracking Resident Involvement: Resident Care Provided Care Provided: Adult Hospital Medicine
[2020-03-27] MEDS: DIGOXIN 0.125 MG TAB PO SCH (16:38)
--- NOTE | 2020-03-27 18:29 | Billing Data ---
Date of Service March 27, 2020 Coding Level of Care Code 24249 Subseq Hosp Care Lvl 2
[2020-03-27] MEDS: MELATONIN 3 MG TAB PO SCH (20:20)
[2020-03-27] MEDS: GABAPENTIN 400 MG CAP PO SCH (20:58)
[2020-03-28] MEDS: AMPICILLIN 1,000 MG in SODIUM CHLOR 0.9% AD-VAN 50 ML IV SCH ×2 (05:06→10:24)
[2020-03-28] MEDS: APIXABAN 5 MG TABLET PO SCH ×2 (08:02→20:30)
[2020-03-28] MEDS: METOPROLOL TARTRATE 100 MG TAB PO SCH ×2 (08:02→20:29)
[2020-03-28] MEDS: POLYETHYLENE (MIRALAX) 17 GM PACK PO SCH (08:03)
--- NOTE | 2020-03-28 08:53 | Hospitalist Progress Note ---
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 fib w/ RVR and UTI Atrial fibrillation with RVR - identified in ER, patient unaware of palpitations; subsequently converted to sinus rhythm - Cardiology consulted and following - Rates in the high 90's to 110's; stable, on Metoprolol Tartrate 100 BID - Continue Digoxin 0.125mg - started on Eliquis 5 mg bid, CHADSVASC 2 w/ 1 point for age - ECHO 06/02: Grade 1 diastolic dysfunction with 70% EF - EKG showing Afib with RVR and left axis deviation, likely left ventricular hypertrophy - Repeat EKG on 03/26, sinus rhythm replaced Afib Hypokalemia -Resolved Urosepsis - UA showing 2+ LE, 2+ blood - febrile with one time temp. of 38.2C, since resolved with abx. - blood cultures ordered, started on Rocephin empirically on 03/19 - Grew out Enterococcus and was switched to Ampicillin - Continue Ampicillin 1g q6h x7 total days (finished on 03/28) Altered mental status in a hospitalized patient with infection - Likely secondary to both infection, hospitalization stay, and delirium. - Expect improvement with clearing of infection, but may still be several days to weeks before back to baseline - Discussed with Case Management who have spoken with Family and feels inpatient rehab would be the next step for patient. Hypertension -Patient with occasional elevations of BP to the 160's/100's even with increase of metoprolol -Will continue to monitor -Per cardiology can consider adding lisinopril if pressures remain high. Poor oral intake in the setting of infection - continue to encourage PO intake - Also considering a concern for depression as co-factor for patients lack of interest in food. - Patient with noted history of cancer diagnosis and apparent father had history of cancer that the patient did not take well - Hard to evaluate for depression at this time due to patients delirium, but may be worth tackling in the outpatient setting once patient is more himself. Neuropathy - Gabapentin 400 HS Sacral ulcer, new - wound care consulted Lymphoma - in remission, next f/u scheduled for April - monitor CBCs Cervical Spinal Stenosis - pt previously had plan to have surgical intervention with Dr. Pablo prior to cancer diagnosis - Will revisit upon discharge in outpatient. Discharge planning - PT order placed as he has not been ambulating during hospitalization - Plan for discharge to inpatient rehab after stay. - At this time patient is medically stable to discharge to rehab. - Insurance denied rehab, with subsequent Peer to Peer w/ Dr. Payal Garcia denied patient, recommended family appeal if they felt strongly that patient required rehab over SNF - referral to [facility] pending - continuing to require encouragement with feeding and maximal assist with movement Admission and Anticipated Discharge Date Admission Date: March 18, 2020 Supervising Physician Co-Signing Physician Notes I personally examined the patient and verified all valerio points of history and exam, discussed case, and agree with decision making with Dr Dawn. not really any meaningful HPI or ROS. still waiting placement vitals noted nad heent nc at mmm cardio rate overall controlled now sinus. no pallor or icterus afib/RVR - rate remains controlled, anticoagulated. UTI - treatd with ampicillin for 7 days total effective treatment since complicated UTI, improved AMS - ?delirium (metabolic encephalopathy in the setting of a UTI) from above and UTI, compounded by hospital stay? protein/calorie malnutrition - labs and BMI would suggest mild, but pace of weight loss would suggest severe. jewel bearing driller assisting, encourage intake. dispo - stable for snf since rehab denied Subjective Patient continues to have limited oral intake, throughout the day the patient has had improved mentation and has tolerated oral intake of Boosts fairly well. Drank the entirety of his boost with ice cream for lunch and a few bites of his meal. Continues to have profound weakness on motion with staff. Review of Systems Review of Systems: All systems reviewed & are unremarkable except as noted in Subjective Physical Exam Constitutional: + thin, + cachectic, + frail appearing, cooperative and comfortable; no acute distress, not ill appearing and not in distress Eyes: PERRL, conjunctivae normal, anicteric sclerae normal visual emmanuel by confrontation and EOM intact bilaterally Respiratory: normal respiratory effort, lungs clear to auscultation normal respiratory effort; no respiratory distress and no retractions Auscultation: no crackles, no rales and no wheezes Cardiovascular: RRR, no murmur, no edema Rate/Rhythm: regular rate and regular rhythm Gastrointestinal (Abdomen): normal bowel sounds, soft, nontender, no hepatosplenomegaly Inspection/Auscultation: + scaphoid Percussion/Palpation: abdomen soft; abdomen nontender and no guarding Neurologic: moves all extremities and awake Psychiatric: Orientation: alert, oriented to person, oriented to place (knew we were in a medical center today) and cooperative; + not oriented to time Eye Contact: + fair eye contact Results & Data Results & Data ([place]) Vital Signs (Past 12 Hours) Vital Signs Temp Pulse Pulse Resp BP Pulse Ox 03/28/20 08:23 36.4 C L 90 16 154/96 H 99 03/28/20 04:21 37 C 88 18 158/90 H 100 03/27/20 22:19 36.5 C 87 106 H 18 147/80 H 94 Medications Administered Current Inpatient Medications Acetaminophen (Acetaminophen 325 Mg Tab) 650 mg PO Q4H PRN PRN Reason: pain/fever Stop: 04/17/20 20:45 Last Admin: 03/20/20 08:54 Dose: 650 mg Documented by: Apixaban (Apixaban 5 Mg Tablet) 5 mg PO BID ANA Stop: 04/18/20 20:59 Last Admin: 03/28/20 08:02 Dose: 5 mg Documented by: Digoxin (Digoxin 0.125 Mg Tab) 0.125 mg PO DAILY@1600 ANA Stop: 04/20/20 15:59 Last Admin: 03/27/20 16:38 Dose: 0.125 mg Documented by: Gabapentin (Gabapentin 400 Mg Cap) 400 mg PO HS ANA Stop: 04/17/20 20:59 Last Admin: 03/27/20 20:58 Dose: 400 mg Documented by: Heparin Sodium (Porcine) (Heparin 100 Unit/Ml 5ml Flush) 5 ml FLUSH PRN PRN PRN Reason: Flush Stop: 04/18/20 22:47 Last Admin: 03/27/20 22:29 Dose: 5 ml Documented by: Ampicillin Sodium 1,000 mg/ (Sodium Chloride) 50 mls @ 100 mls/hr IV Q6H ANA Stop: 03/28/20 15:59 Last Infusion: 03/28/20 05:38 Dose: Infused Documented by: Melatonin (Melatonin 3 Mg Tab) 3 mg PO HS ANA Stop: 04/17/20 20:59 Last Admin: 03/27/20 20:20 Dose: 3 mg Documented by: Metoprolol Tartrate (Metoprolol Tartrate 1 Mg/Ml Vial) 5 mg IV Q2H PRN PRN Reason: HR > 110 Stop: 04/17/20 20:45 Metoprolol Tartrate (Metoprolol Tartrate 100 Mg Tab) 100 mg PO BID [facility] Stop: 04/22/20 20:59 Last Admin: 03/28/20 08:02 Dose: 100 mg Documented by: Vitamin D3: Non- Formulary Patient's Own Med 1 ea EXT Saab@0900 [facility]; Protocol Stop: 04/27/20 08:59 Last Admin: 03/28/20 08:04 Dose: 1 cap Documented by: Ondansetron HCl (Ondansetron Inj 2 Mg/Ml 2 Ml Vial) 4 mg IV Q4H PRN PRN Reason: Nausea Stop: 04/17/20 20:45 Polyethylene Glycol (Polyethylene (Miralax) 17 Gm Pack) 17 gm PO DAILY [facility] Stop: 04/25/20 13:29 Last Admin: 03/28/20 08:03 Dose: 17 gm Documented by: Resident Activity Tracking Resident Involvement: Resident Care Provided Care Provided: Adult Hospital Medicine
[2020-03-28] MEDS ORDERED: VITAMIN D3: NON-FORMULARY PATIENT'S OWN MED EXT SCH (09:00)
[2020-03-28] MEDS: HEPARIN 100 UNIT/ML 5ML FLUSH FLUSH PRN (10:54)
[2020-03-28] MEDS: DIGOXIN 0.125 MG TAB PO SCH (15:45)
--- NOTE | 2020-03-28 19:29 | Billing Data ---
Date of Service March 28, 2020 Coding Level of Care Code 06501 Subseq Hosp Care Lvl 2
[2020-03-28] MEDS: GABAPENTIN 400 MG CAP PO SCH (20:30)
[2020-03-28] MEDS: MELATONIN 3 MG TAB PO SCH (20:32)
[2020-03-29] MEDS: HEPARIN 100 UNIT/ML 5ML FLUSH FLUSH PRN (05:45)
[2020-03-29 06:19] LABS: Eosinophils # (auto) 0.06 K/uL (0-0.5); Eosinophils % (auto) 0.6 %; Hematocrit (blood only) 32.8 % (42-52); Hemoglobin 11.3 g/dL (14.0-18.0); Immature Granulocytes # (auto) 0.21 K/uL (0.00-0.02); Immature Granulocytes % (auto) 2.1 %; Lymphocytes # (auto) 0.68 K/uL (1.2-3.4); Lymphocytes % (auto) 6.9 %; Mean Corpuscular Hemoglobin 29.7 pg (25-34); Mean Corpuscular Hgb Conc 34.5 g/dL (32-36); Mean Corpuscular Volume 86.3 fL (80-100); Mean Platelet Volume 9.4 fL (7.4-10.4); Monocytes # (auto) 0.75 K/uL (0.11-0.59); Monocytes % (auto) 7.6 %; Neutrophils # (auto) 8.14 K/uL (1.4-6.5); Neutrophils % (auto) 82.8 %; Platelet Count 400 K/uL (130-400); RDW Coefficient of Variation 15.2 % (11.5-14.5); RDW Standard Deviation 47.6 fL (36.4-46.3); White Blood Count 9.84 K/uL (4.8-10.8)
[2020-03-29 06:55] LABS: BUN Creatinine Ratio 34.6 (10-20); Calcium 8.6 mg/dl (8.5-10.1); Creatinine Clr Calc Pharmacy 115.2 ml/min; Est GFR (African American) 115.7; Est GFR (Non-African American) 99.8; Potassium 3.5 mmol/L (3.5-5.1)
[2020-03-29] MEDS: METOPROLOL TARTRATE 100 MG TAB PO SCH ×2 (07:41→20:48)
[2020-03-29] MEDS: APIXABAN 5 MG TABLET PO SCH ×2 (07:41→20:48)
[2020-03-29] MEDS: POLYETHYLENE (MIRALAX) 17 GM PACK PO SCH (07:42)
--- NOTE | 2020-03-29 10:15 | Hospitalist Progress Note ---
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 fib w/ RVR and UTI Atrial fibrillation with RVR - identified in ER, patient unaware of palpitations; subsequently converted to sinus rhythm - ECHO 06/02: Grade 1 diastolic dysfunction with 70% EF - Continue Metoprolol Tartrate 100 BID, Digoxin 0.125mg, - started on Eliquis 5 mg bid, CHADSVASC 2 w/ 1 point for age - Will transition to Metoprolol Succinate 200mg QD upon discharge Hypokalemia -Resolved UTI - febrile with one time temp. of 38.2C, since resolved with abx. - started on Rocephin empirically on 03/19 - Urine cx Grew out Enterococcus and was switched to Ampicillin - Ampicillin 1g q6h x7 total days (finished on 03/28) - Condom catheter in place currently, quezada catheter was removed on 03/25/20 Altered mental status in a hospitalized patient with infection - Likely secondary to both infection, hospitalization stay, and delirium. - supportive care - denied inpatient rehab, attempting for SNF placement. Hypertension -occasional elevations of BP to the 160's/100's even with increase of metoprolol -Consider resuming home valsartan if pressures remain high. -currently normotensive Poor oral intake in the setting of infection - continue to encourage PO intake - ? underlying depression - Hard to evaluate for depression at this time due to patients delirium, but may be worth tackling in the outpatient setting once patient is more himself. Neuropathy - Gabapentin 400 HS Sacral ulcer, new - wound care consulted Lymphoma - in remission, next f/u scheduled for April - monitor CBCs Cervical Spinal Stenosis - pt previously had plan to have surgical intervention with Dr. Pablo prior to cancer diagnosis - Will revisit upon discharge in outpatient. Discharge planning - Insurance denied rehab, with subsequent Peer to Peer w/ Dr. Payal Garcia denied patient, recommended family appeal if they felt strongly that patient required rehab over SNF - Referral for [facility] placed, stable for DC once authorization completed Dispo: Telemetry, DC SNF once auth FEN: Reg DVT: Eliquis Code: Full Admission and Anticipated Discharge Date Admission Date: March 18, 2020 Supervising Physician Co-Signing Physician Notes Resident Physician Supervision Note: I independently interviewed and examined the patient and verified the valerio history and physical, reviewed labs and image studies, discussed the case with the resident Dr. Johnson and agree with the findings and care plan. Subjective Patient evaluated at the bedside. Noting that he was "feeling pretty good today." Unsure of where he is today, but oriented to person. Currently awaiting placement, patient agreeable. Review of Systems Constitutional: no fever and no chills Respiratory: no cough, no dyspnea and no pain on inspiration Cardiovascular: no chest pain, no dyspnea and no palpitations Gastrointestinal: no abdominal pain, no nausea, no vomiting, no constipation and no diarrhea/loose stools Genitourinary: + urinary incontinence Physical Exam Constitutional: cooperative and comfortable; no acute distress and not ill appearing Eyes: normal visual emmanuel by confrontation and EOM intact bilaterally ENMT: external ear and nose normal, oropharynx normal Neck: normal visual inspection Respiratory: normal respiratory effort, lungs clear to auscultation Cardiovascular: Rate/Rhythm: regular rate and regular rhythm Gastrointestinal (Abdomen): normal bowel sounds, soft, nontender, no hepatosplenomegaly Neurologic: moves all extremities and awake Psychiatric: Orientation: alert, oriented to person and cooperative; + not oriented to place and + not oriented to time Eye Contact: + fair eye contact Affect: euthymic affect Results & Data Results & Data ([facility]) Vital Signs (Past 12 Hours) Vital Signs Temp Pulse Pulse Resp BP Pulse Ox 03/29/20 09:28 76 03/29/20 07:22 36.8 C 78 16 100/61 98 03/29/20 04:13 36.9 C 72 19 106/68 96 03/28/20 22:53 36.7 C 53 L 21 92/62 L 96 03/28/20 22:21 79 Resident Activity Tracking Resident Involvement: Resident Care Provided Care Provided: Adult Hospital Medicine
[2020-03-29] MEDS: DIGOXIN 0.125 MG TAB PO SCH (16:42)
[2020-03-29] MEDS: GABAPENTIN 400 MG CAP PO SCH (20:48)
[2020-03-29] MEDS: MELATONIN 3 MG TAB PO SCH (20:48)
--- NOTE | 2020-03-30 06:58 | Hospitalist Progress Note ---
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 fib w/ RVR and UTI Atrial fibrillation with RVR - identified in ER, patient unaware of palpitations; subsequently converted to sinus rhythm - ECHO 06/02: Grade 1 diastolic dysfunction with 70% EF - Continue Metoprolol Tartrate 100 BID, Digoxin 0.125mg, - started on Eliquis 5 mg bid, CHADSVASC 2 w/ 1 point for age - Will transition to Metoprolol Succinate 200mg QD upon discharge Hypokalemia -Resolved UTI - febrile with one time temp. of 38.2C, since resolved with abx. - started on Rocephin empirically on 03/19 - Urine cx Grew out Enterococcus and was switched to Ampicillin - Ampicillin 1g q6h x7 total days (finished on 03/28) - Condom catheter in place currently, quezada catheter was removed on 03/25/20 Altered mental status in a hospitalized patient with infection - Likely secondary to both infection, hospitalization stay, and delirium. - supportive care - denied inpatient rehab, attempting for SNF placement. Hypertension -occasional elevations of BP to the 160's/100's even with increase of metoprolol -Consider resuming home valsartan if pressures remain high. -currently normotensive Poor oral intake in the setting of infection - continue to encourage PO intake - ? underlying depression - Hard to evaluate for depression at this time due to patients delirium, but may be worth tackling in the outpatient setting once patient is more himself. Neuropathy - Gabapentin 400 HS Sacral ulcer, new - wound care consulted Lymphoma - in remission, next f/u scheduled for April - monitor CBCs Cervical Spinal Stenosis - pt previously had plan to have surgical intervention with Dr. Pablo prior to cancer diagnosis - Will revisit upon discharge in outpatient. Discharge planning - Insurance denied rehab, with subsequent Peer to Peer w/ Dr. Payal Garcia denied patient, recommended family appeal if they felt strongly that patient required rehab over SNF - Referral for SNF [facility] placed, stable for DC once authorization completed Dispo: Telemetry, DC SNF once auth FEN: Reg DVT: Eliquis Code: Full Admission and Anticipated Discharge Date Admission Date: March 18, 2020 Results & Data Results & Data ([facility]) Vital Signs (Past 12 Hours) Vital Signs Temp Pulse Pulse Resp BP BP Pulse Ox 03/30/20 03:30 36.7 C 73 17 131/79 99 03/29/20 22:51 36.7 C 64 19 111/69 92 03/29/20 22:20 71 03/29/20 19:02 36.8 C 66 20 111/71 94
[2020-03-30] MEDS: POLYETHYLENE (MIRALAX) 17 GM PACK PO SCH (07:52)
[2020-03-30] MEDS: METOPROLOL TARTRATE 100 MG TAB PO SCH (07:52)
[2020-03-30] MEDS: APIXABAN 5 MG TABLET PO SCH (07:52)
[2020-03-30 07:57] VITALS: BP 137/86; PULSE 80; TEMP 98.2; O2SAT 98
--- NOTE | 2020-03-30 09:15 | Discharge Summary ---
Date of Service March 30, 2020 Admission HPI Per Admitting Provider Mr. 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 The patient has been declining at home for some time. Initially, he had been encouraged by his neurologist to seek rehab placement, but he refused. A home physical therapist came on Sunday and did some exercises with him. He finished by getting him in bed, and the patient has been bedbound since then. His has been cleaning him up at home and he hasn't left the bed. The PT traffic assistant came again this week and had him in a wheelchair for some time, but then he was in bed again. When he was brought the ED, he was found to be in afib with RVR. This was completely out of the blue for the patient and the , and he has never had this before. He is a reluctant historian, but he denies any shortness of breath, chest pain, or palpitations. Admission Exam Per Admitting Provider Constitutional: WD/WN, vitals as above Eyes: EOM intact bilaterally; no conjunctival abnormality ENMT: external ear and nose normal, oropharynx normal Neck: trachea midline, no thyromegaly normal visual inspection Respiratory: normal respiratory effort, lungs clear to auscultation no respiratory distress Cardiovascular: Rate/Rhythm: + tachycardic and + irregularly irregular Heart Sounds: normal S1 and normal S2 Extremities: no edema Gastrointestinal (Abdomen): Inspection/Auscultation: abdomen normal to inspection; abdomen not distended Musculoskeletal: Head/Neck/Chest: normocephalic and head atraumatic Skin: no rashes, warm and dry Neurologic: moves all extremities and awake Psychiatric: Orientation: alert and oriented to person; + uncooperative Principal Diagnosis Urosepsis, Atrial Fibrillation Discharge Exam Constitutional cooperative and comfortable; no acute distress and not ill appearing Eyes normal visual emmanuel by confrontation and EOM intact bilaterally ENMT external ear and nose normal, oropharynx normal Neck normal visual inspection Respiratory normal respiratory effort, lungs clear to auscultation Cardiovascular Rate/Rhythm: regular rate and regular rhythm Gastrointestinal (Abdomen) normal bowel sounds, soft, nontender, no hepatosplenomegaly Neurologic moves all extremities and awake Psychiatric Orientation: alert, oriented to person and cooperative; + not oriented to place and + not oriented to time Eye Contact: + fair eye contact Affect: euthymic affect Discharge Data Allergies Allergy/AdvReac Type Severity Reaction Status Date / Time ibuprofen Allergy Severe ANAPHYLAXIS Verified 03/18/20 18:33 Consultations 03/18/20 18:30 ED Decision to Admit Stat 03/18/20 20:46 Consult Orthopedic Surgery Routine 03/19/20 14:01 Consult Cardiology Routine Ordered Studies 03/18/20 16:41 CT head/brain wo con Stat Hospital Course (1) Atrial fibrillation with rapid ventricular response: 69 yo M with PMHx cervical spinal stenosis, metastatic lymphoma s/p chemotherapy, 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 fib w/ RVR and UTI Atrial fibrillation with RVR - identified in ER, patient unaware of palpitations; subsequently converted to sinus rhythm - ECHO 06/02: Grade 1 diastolic dysfunction with 70% EF - Continued Metoprolol Tartrate 100 BID, Digoxin 0.125mg while inpatient - started on Eliquis 5 mg bid, CHADSVASC 2 w/ 1 point for age - Transition to Metoprolol Succinate 200mg QD upon discharge - Continue Digoxin 0.125mg upon discharge - Continue Eliquis 5mg BID upon discharge. - Follow up with PCP in 1 week. - Follow up with Cardiology in 1-2 week. Hypokalemia -Resolved UTI with urinary retention/incontinence - febrile with one time temp. of 38.2C, since resolved with abx. - started on Rocephin empirically on 03/19 - Urine cx Grew out Enterococcus and was switched to Ampicillin - Ampicillin 1g q6h x7 total days (finished on 03/28) - had quezada catheter placed - removed on 03/25/20. later condom catheter was placed. Altered mental status in a hospitalized patient with infection - Likely secondary to both infection, hospitalization stay, and delirium. - Back to baseline on discharge Hypertension -Will defer restarting home Valsartan 80mg QD until patient is seen by his PCP or Cardiology outpatient as he is currently normotensive. Poor oral intake in the setting of infection - continue to encourage PO intake - ? underlying depression - Hard to evaluate for depression at this time due to patients delirium, but may be worth tackling in the outpatient setting once patient is more himself. Neuropathy - Continued Gabapentin 400 HS Sacral ulcer, new POA - wound care consulted while inpatient, continue to monitor after discharge. Lymphoma - in remission, next f/u scheduled for April - monitored CBCs inpatient Cervical Spinal Stenosis - pt previously had plan to have surgical intervention with Dr. Pablo prior to cancer diagnosis - Revisit upon discharge in outpatient. Dispo: [facility] today DVT: Eliquis Code: Full Total Time Total Time Spent Total Time Spent (In Minutes): see attending attestation Discharge Plan Discharge Items Patient Disposition: Transfer Longterm Fac Reason For Visit: AFIB WITH RVR Discharge Diagnosis: Urosepsis, Afib RVR Activity: Per Instructions section Non-emergency contact: Primary Care Provider and Strain Technician Call non-emergency contact if: you have any medication questions, your symptoms worsen and your temperature is above 101 Follow-up/Referrals: Tani Nunez MD [Physician] - 04/06/20 11:15 am (You have an appt with Dr. Nunez on Sunday at 1115am. It is important that you keep this appt, if it does not fit your schedule please call [phone] to reschedule. 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 fib w/ RVR and UTI Atrial fibrillation with RVR - identified in ER, patient unaware of palpitations; subsequently converted to sinus rhythm - ECHO 06/02: Grade 1 diastolic dysfunction with 70% EF - Continued Metoprolol Tartrate 100 BID, Digoxin 0.125mg while inpatient - started on Eliquis 5 mg bid, CHADSVASC 2 w/ 1 point for age - Transition to Metoprolol Succinate 200mg QD upon discharge - Continue Digoxin 0.125mg upon discharge - Continue Eliquis 5mg BID upon discharge. - Follow up with PCP in 1 week. - Follow up with Cardiology in 1-2 week. Hypokalemia -Resolved UTI - febrile with one time temp. of 38.2C, since resolved with abx. - started on Rocephin empirically on 11/6 - Urine cx Grew out Enterococcus and was switched to Ampicillin - Ampicillin 1g q6h x7 total days (finished on 03/28) - Condom catheter in place currently, quezada catheter was removed on 03/25/20 Altered mental status in a hospitalized patient with infection - Likely secondary to both infection, hospitalization stay, and delirium. - SNF placement at [facility] today. Hypertension -Will defer restarting home Valsartan 80mg QD until patient is seen by his PCP or Cardiology outpatient as he is currently normotensive. Poor oral intake in the setting of infection - continue to encourage PO intake - ? underlying depression - Hard to evaluate for depression at this time due to patients delirium, but may be worth tackling in the outpatient setting once patient is more himself. Neuropathy - Continued Gabapentin 400 HS Sacral ulcer, new - wound care consulted while inpatient, continue to monitor after discharge. Lymphoma - in remission, next f/u scheduled for April - monitored CBCs inpatient Cervical Spinal Stenosis - pt previously had plan to have surgical intervention with Dr. Pablo prior to cancer diagnosis - Revisit upon discharge in outpatient. Dispo: DC [facility] today DVT: Eliquis Code: Full Pending Studies at Discharge: No Stand-Alone Forms: My [facility] Skilled Items Patient informed of condition?: Yes DNR: No Discharge Level of Care: Skilled Communicable Disease: No Discharge Prognosis: Stable Lines: [facility] Urinary Catheter: No Medications and DC Order Prescriptions: New digoxin [Digitek] 125 mcg (0.125 mg) Tablet 0.125 mg PO DAILY@1600 1 Days RF: 0 Eliquis 5 mg Tablet 5 mg PO BID 1 Days Qty: 2 RF: 0 metoprolol succinate 200 mg tablet extended release 24 hr 200 mg PO DAILY 1 Days Qty: 1 RF: 0 Continued (DME) Wheelchair (Powered) Device See Rx Instructions .ROUTE .MEDSUPPLY Qty: 1 RF: 0 ferrous sulfate [FeroSul] 325 mg (65 mg iron) tablet 325 mg PO QAM RF: 0 gabapentin 400 mg Capsule 400 mg PO HS RF: 0 cholecalciferol (vitamin D3) 1,250 mcg (50,000 unit) tablet 50,000 unit PO WK RF: 0 Discontinued metoprolol tartrate 25 mg tablet 25 mg PO BID RF: 0 valsartan [Diovan] 80 mg tablet 80 mg PO QAM RF: 0 Discharge Orders: Discharge Order (Routine); Ordered 03/30/20 Ordered By: Afshin Johnson Admission Data Admit Date/Time: 03/18/20 19:10 Attending Provider: Zhane Banks Admit Provider: Derrell Espinal Primary Care Provider: Alyssa Darnell Other Providers: Maryuri Torres ; Kaleigh Manley ; René Arango ; Derrell Espinal ; Solomon Pablo ; Tani Nunez ; [facility] at [place] ; Cy Nixon ; [facility] Other Interventions: Discharge Summary Assessment (RN) Last Done: 03/30/20 10:13 Supervising Physician Co-Signing Physician Notes Resident Physician Supervision Note: I independently interviewed and examined the patient and verified the valerio history and physical, reviewed labs and image studies, discussed the case with the resident Dr. Johnson and agree with the findings and care plan. Resident Activity Tracking Resident Involvement: Resident Care Provided Care Provided: Adult Hospital Medicine
--- NOTE | 2020-04-01 07:38 | Coding Query ---
MALNUTRITION To promote full compliance with coding requirements relating to patient care, physician participation is requested in all cases of reading professor uncertainty. Please assist us with the question(s) below: Please place an X within the parenthesis (x). If other, please document: "Malnutrition" is documented in this record with documentation in Progress Notes of, "protein/calorie malnutrition - labs and BMI would suggest mild, but pace of weight loss would suggest severe. die cast supervisor assisting, encourage intake.". It is not clear if this is ultimately felt to be mild or severe malnutrition. If possible, please check the box that provides a more specific diagnosis: ( ) Mild malnutrition ( ) Moderate malnutrition ( ) Severe malnutrition ( ) Protein malnutrition (kwashiorkor) ( ) Severe protein calorie malnutrition ( ) Protein calorie malnutrition, unspecified x( ) Other (please specify): documentation was deliberately done with above noted ambiguity because the severity was not totally clear. thanks. Thank you Lilian HARDING
== END 2020-03-30 13:18 | DRG 308 ==
LOC: ED 16:31 → 2E 19:10 → SUATTDRO 19:10 → 2E 20:00 → 2W 03-24 17:00
DX: I25.10 Atherosclerotic heart disease of native coronary artery without angina pectoris; Z74.01 Bed confinement status; G93.41 Metabolic encephalopathy; I10 Essential (primary) hypertension; E55.9 Vitamin D deficiency, unspecified; E86.0 Dehydration; Z88.6 Allergy status to analgesic agent; B95.2 Enterococcus as the cause of diseases classified elsewhere; Z82.49 Family history of ischemic heart disease and other diseases of the circulatory system; F32.9 Major depressive disorder, single episode, unspecified; R53.1 Weakness; L98.429 Non-pressure chronic ulcer of back with unspecified severity; Z51.81 Encounter for therapeutic drug level monitoring; I48.91 Unspecified atrial fibrillation; I42.9 Cardiomyopathy, unspecified; M48.02 Spinal stenosis, cervical region; M47.892 Other spondylosis, cervical region; G62.0 Drug-induced polyneuropathy; E87.6 Hypokalemia; T45.1X5S Adverse effect of antineoplastic and immunosuppressive drugs, sequela; Z85.72 Personal history of non-Hodgkin lymphomas; R33.9 Retention of urine, unspecified; Z79.899 Other long term (current) drug therapy; E46 Unspecified protein-calorie malnutrition; N39.0 Urinary tract infection, site not specified

== ENCOUNTER 2020-04-23 10:32 | Inpatient (IN) ==
[2020-04-23] MEDS ORDERED: ETOMIDATE 2 MG/ML 20 ML VIAL IV ONE ×2 (10:41→12:08)
[2020-04-23] MEDS ORDERED: RAPID SEQUENCE INDUCTION BAG ONE (10:41)
[2020-04-23] MEDS ORDERED: ROCURONIUM BROMIDE 10 MG/ML 5 ML VIAL IV STA (10:41)
[2020-04-23] MEDS ORDERED: SODIUM CHLORIDE 0.9% 1000ML 1,000 ML IV ONE (10:45)
[2020-04-23 11:08] LABS: Hematocrit (blood only) 34.8 % (42-52); Hemoglobin 11.6 g/dL (14.0-18.0); Mean Corpuscular Hemoglobin 30.4 pg (25-34); Mean Corpuscular Hgb Conc 33.3 g/dL (32-36); Mean Corpuscular Volume 91.3 fL (80-100); Mean Platelet Volume 9.1 fL (7.4-10.4); Platelet Count 561 K/uL (130-400); RDW Coefficient of Variation 15.4 % (11.5-14.5); RDW Standard Deviation 51.6 fL (36.4-46.3); Red Blood Count 3.81 M/uL (4.7-6.1); White Blood Count 24.37 K/uL (4.8-10.8)
[2020-04-23 11:19] LABS: INR 1.3 (0.9-1.1); Partial Thromboplastin Ratio 1.1; Partial Thromboplastin Time 30.3 Seconds (21.0-31.0); Prothrombin Time 13.4 Seconds (9.0-12.0)
[2020-04-23 11:26] LABS: Albumin Level 2.7 gm/dl (3.4-5.0); BUN Creatinine Ratio 25.4 (10-20); Bilirubin Direct 0.4 mg/dl (0-0.2); Creatinine Clr Calc Pharmacy 97.9 ml/min; Est GFR (African American) 106.4; Est GFR (Non-African American) 91.8; Magnesium 1.9 mg/dl (1.8-2.4); Potassium 4.3 mmol/L (3.5-5.1)
[2020-04-23] MEDS ORDERED: PIPERACILL/TAZOBAC CONSULT ACTIVE PRN (11:27)
[2020-04-23] MEDS ORDERED: PIPERACILLIN/TAZOBACTAM 4.5 GM/120 ML BAG IV ONE (11:27)
[2020-04-23] MEDS ORDERED: VANCOMYCIN CONSULT ACTIVE PRN (11:27)
[2020-04-23] MEDS ORDERED: VANCOMYCIN HCL 1,500 MG in SODIUM CHLORIDE 0.9% 500 ML IV ONE (11:27)
[2020-04-23] MEDS ORDERED: dexAMETHasone 10 MG in SYRINGE 0 ML IV STA (11:29)
[2020-04-23] MEDS ORDERED: SODIUM CHLORIDE 0.9% 1000ML 1,000 ML IV SCH (11:30)
[2020-04-23 11:35] LABS: Basophils # (auto) 0.02 K/uL (0-0.2); Basophils % (auto) 0.1 %; Eosinophils # (auto) 0.01 K/uL (0-0.5); Immature Granulocytes % (auto) 1.2 %; Lymphocytes % (auto) 6.6 %; Monocytes % (auto) 9.8 %; Neutrophils # (auto) 20.04 K/uL (1.4-6.5); Neutrophils % (auto) 82.3 %
--- NOTE | 2020-04-23 11:35 | XRay Report ---
XR chest 1V portable CLINICAL HISTORY: SEPSIS RESPIRATORY FAILURE COMPARISON STUDY: 03/18/2020 FINDINGS: There is an endotracheal tube 4.5 cm above the mahesh. There is a nasogastric tube with its tip at the esophagogastric junction. There is a right subclavian A-Port catheter, tip of which proje cts at the superior vena cava. There is elevation the right hemidiaphragmatic contour. There are asym metric bilateral pulmonary airspace opacities most pronounced on the right. The findings are consiste nt with a multifocal pneumonia. There is a suspected small right pleural effusion[ IMPRESSION: 1. Moderately extensive right lung airspace opacities, and minimal left lung airspace opacities. Advi se are suspicious for a multifocal pneumonia. Clinical and radiographic follow-up is recommended. 2. Suspected small right pleural effusion ACT 112: Negative or not required by law. Electronically signed by: Xavier Zaldivar M.D. 04/23/2020 11:34 AM
[2020-04-23 11:46] LABS: Influenza A virus by PCR Negative (Neg); Influenza B virus by PCR Negative (Neg); RSV by PCR Negative (Neg); SARS CoV2 RNA(COVID-19) InHosp NEGATIVE (Negative)
[2020-04-23] MEDS ORDERED: STAT IV Infusion **Titration per Protocol STA (11:48)
[2020-04-23 11:50] LABS: Albumin Globulin Ratio 0.6 (0.9-2); Bilirubin,Total 0.9 mg/dl (0.2-1); Globulin 4.5 gm/dl (2.5-4.0); Phosphorus 5.1 mg/dl (2.5-4.9); Thyroid Stimulating Hormone 1.08 uIu/ml (0.300-4.500); Total Protein 7.2 gm/dl (6.4-8.2); Troponin I 0.203 ng/ml (0-0.045)
[2020-04-23 11:58] LABS: HCO3 VBG 26 mmol/L; PCO2 VBG 67 mmHg (38-50); PO2 VBG 36 mmHg
[2020-04-23] MEDS ORDERED: propofoL 1,000 MG/100 ML VIAL IV SCH (12:00)
[2020-04-23 12:01] LABS: Oxygen Saturation VBG < 60.0 %
[2020-04-23] MEDS: PROPOFOL BOLUS FROM BAG IV PRN ×2 (12:07→12:40)
[2020-04-23] MEDS ORDERED: ROCURONIUM BROMIDE 10 MG/ML 5 ML VIAL IV ONE (12:08)
--- NOTE | 2020-04-23 12:08 | History & Physical Report ---
Date of Service April 23, 2020 Assessment & Plan (1) Sepsis: Source: Suspected multifocal pneumonia +/- aspiration +/- Recent UTI sepsis (although not bacteremic on last admission urine grew Enterococcus faecalis sensitive to penicillin and vancomycin) SARS-CoV-2, RSV, influenza negative Lactate 3.1, repeat pending NSS 1.4 L bolus given Continue broad-spectrum antibiotics with vancomycin and Zosyn Very poor prognosis given patient's nutritional status, recent admission for sepsis - consider palliative consult. (2) Acute respiratory failure with hypoxia: Intubated in the emergency room 04/23/2020. Management per ICU. (3) Multifocal pneumonia: Possible aspiration. Antibiotics as above. (4) Sacral decubitus ulcer, stage II: No surrounding cellulitis Routine wound care (5) Atrial fibrillation with rapid ventricular response: New diagnosis on last admission. Elevated rate on admission but appears to be sinus tachycardia. EKG - sinus tachycardia. Anticoagulation per ICU (6) Severe protein-calorie malnutrition: Consult dietary (7) Non Hodgkin's lymphoma: Reportedly in remission (8) DVT prophylaxis: Defer to ICU History of Present Illness Chief Complaint: Acute hypoxic respiratory failure Primary Care Provider: SHILO Vizcarra Ayo Hagen is a 69-year-old male who presents to the ER with acute hypoxic respiratory failure. Unable to get any history from the patient as he is intubated and sedated. History taken from his over the phone in addition to previous hospitalization, ER and EMS notes. He was recently admitted for UTI sepsis from March 18 to 2019. He was also noted to be in urine retention on this admission and a James catheter was placed but removed on 03/25/2020 without issues after this. He was discharged to [facility] for further rehabilitation. He was discharged from [facility] 6 days ago. His reports her PCP saw the patient 2 days previously and felt his lungs were coarse. Recommended to keep rolling him and started on atropine drops which he last received at 6 AM. He is mostly bedbound since being discharged from [facility] although he was sent home with a wheelchair and nahomi potty his is not been able to use these. He was also seen by speech therapist yesterday who also felt his lungs sounded coarse. However he was not requiring any oxygen. Today she rolled into his side which caused him some pain. She was cleaning him up routinely. When she rolled him onto his back he had trouble catching his breath. She called his PCP who recommended calling for an ambulance. He was still coherence and EMS arrived however was hypoxic. On arrival to the hospital the patient was reportedly toxic, critically ill-appearing, tachycardic and tachypneic and hypoxic despite BiPAP. GCS 6. Therefore decision was made to intubate. He is currently sedated and intubated. Allergies Allergy/AdvReac Type Severity Reaction Status Date / Time ibuprofen Allergy Severe ANAPHYLAXIS Verified 04/23/20 12:28 Home Medications Medication Instructions Recorded Confirmed Type ferrous sulfate 325 mg (65 mg 325 mg PO QAM 02/02/20 04/23/20 History iron) tablet Wheelchair (Manual or Powered) #1 ea 02/10/20 04/16/20 Rx cholecalciferol (vitamin D3) 50,000 unit PO WK 03/18/20 04/23/20 History gabapentin 400 mg PO HS 03/18/20 04/23/20 History acetaminophen 325 mg tablet 650 mg PO QID PRN tab 04/16/20 04/23/20 History apixaban 5 mg tablet 5 mg PO BID 04/16/20 04/23/20 History calcium carbonate 200 mg calcium 200 mg PO QID PRN 04/16/20 04/23/20 History (500 mg) chewable tablet digoxin 125 mcg (0.125 mg) tablet 125 mcg PO HS 04/16/20 04/23/20 History metoprolol succinate [Kapspargo 200 mg PO QAM 04/23/20 04/23/20 History Sprinkle] Past Med/Surg History Medical History Acid reflux Cervical spine disease Gastric ulcer History of ASCVD HTN (hypertension) Hyperlipemia Non Hodgkin's lymphoma Pancreatic mass Vitamin D deficiency Surgical History History of esophagogastroduodenoscopy (EGD) History of hip surgery PINNING RIGHT HIP-AGE 15 Port-A-Cath in place (06/16/19) Access port placement. Dr. Lyn 06/16/19 Family History Father Myocardial infarction Heart disease Brother Cancer Hypertension Other Family history non-contributory Social History Smoking Status: Never smoker Second Hand Exposure: No; Do You Dip or Chew Tobacco: No; Tobacco Cessation Education Requested by Patient: No Hx Alcohol Use: Yes Alcohol type: beer Hx Substance Use: No Preferred Language: Vietnamese Communication Ability: Unable Communication Ability Comment: UNRESPONSIVE/INTUBATED Forest[employer] Required: No Beliefs That Will Affect Care: None marital status: Current Living Situation: Spouse current occupational status: retired Other Information That Helps Us Care for You: No Feels Safe at Home: Yes Safety Concerns: Feels Safe At This Time Assistive Devices: Denture - Upper, Denture - Lower and Oxygen - Continuous Review of Systems Review of Systems: Unobtainable due to endotracheal tube and Unobtainable due to reduced consciousness Physical Exam Constitutional: + cachectic and + mechanically ventilated; no acute distress Eyes: + anicteric sclerae; + pupils not reactive and normal pupil size ENMT: Mouth: + dry oral mucous membranes Neck: trachea midline Respiratory: symmetric chest movement Auscultation: + rhonchi (Bilateral throughout); no wheezes Cardiovascular: Rate/Rhythm: + tachycardic and + irregularly irregular Heart Sounds: no murmur Extremities: + abnormal capillary refill (8-9 seconds in peripheries, 3 seconds centrally) Gastrointestinal (Abdomen): Inspection/Auscultation: + hypoactive bowel soun ds; + abdomen abnormal to inspection (Cachectic and decreased size) Percussion/Palpation: abdomen soft Skin: + ulcer (2 small stage II sacral ulcers present without surrounding cellulitis) Neurologic: + not awake (Intubated and sedated) Results & Data Results & Data ([facility]) Vital Signs (Past 12 Hours) Vital Signs Pulse Resp BP Pulse Ox 04/23/20 11:15 151 H 20 94 04/23/20 10:38 147 H 30 H 106/71 84 L Diagnostic Findings XR chest 1V portable IMPRESSION: 1. Moderately extensive right lung airspace opacities, and minimal left lung airspace opacities. Advise are suspicious for a multifocal pneumonia. Clinical and radiographic follow-up is recommended. 2. Suspected small right pleural effusion ECG Rate (beats per minute): 158 Rhythm: sinus tachycardia Findings: + PVC Code Status & VTE Plan Code Status Conditional - already intubated but not for resuscitation VTE Prophylaxis Plan VTE Prophylaxis will be ordered: Yes PG Care Time/CCT Total # of Minutes Spent Total Time Spent with Patient: Total time spent is greater than 50% in coordination of care (as documented) at patient's floor/unit and/or counseling patient: Coding Level of Care Code 79198 Initial Inpt Care Lvl 3 Diagnoses Sepsis A41.9 Acute respiratory failure with hypoxia J96.01 Multifocal pneumonia J18.9 Sacral decubitus ulcer, stage II L89.152 Atrial fibrillation with rapid ventricular response I48.91 Severe protein-calorie malnutrition E43 Non Hodgkin's lymphoma C85.90 DVT prophylaxis Z29.9
[2020-04-23] MEDS ORDERED: SODIUM CHLORIDE 0.9% 1000ML 400 ML IV SCH (12:28)
--- NOTE | 2020-04-23 12:46 | Emergency Department Note ---
Impression & Plan Acute respiratory failure with hypoxia, Multifocal pneumonia, Sepsis, Elevated troponin ED Provider Note NAME: PATI NAIK AGE: 69 SEX: M ARRIVES VIA: Ambulance INFORMANT: , ED PROVIDER(S): Elian Obrien MD CHIEF COMPLAINT: Respiratory distress PLAN: Disposition: Admit. MEDICAL DECISION MAKING: The patient is a 69-year-old gentleman with past medical history of non- Hodgkin's lymphoma with completion of treatment in November 2019 currently reported to be needed remission but with neurologic sequelae believed to be related to his chemotherapy where he has generalized weakness in all extremities and is nonambulatory, with recent admission to [facility] for urosepsis found to have atrial fibrillation discharged to [facility] subsequently and recently discharged home on Sunday where the patient's reports that he has had some mild congestion over the past couple of days but then this morning when he was changing his clothes where she needs to lie him on his side he began to exhibit acute difficulty breathing where EMS was called and found the patient to be hypoxic to low 80s despite being on nonrebreather without any significant improvement on CPAP. I did review with the patient's over the phone the patient's presentation following intubation per description below and the did confirm that they did want everything done at this time and the patient was full code. On arrival the patient is toxic, critically ill-appearing,, tachycardic, tachypneic and continuing to have poor oxygen saturation despite being on BiPAP. Moreover the patient's mental status was impaired with GCS 6. Given EMS report upon their discussion with the patient's he was full code and so decision was made to intubate. He was intubated successfully without complication per procedure note. EKG without overt ST elevation. CXR with multifocal PNA. WBC 24.3 with neutrophil predominance. H/H 11.6/34.8 decreased though approximate to prior values. Platelets 560, nonspecific. VBG with acidemia wit h pH of 7.2 and PCO2 of 67. Chemistry without metabolic acidosis though lactate 3.1 initially. BUN/creatinine> 20 suggestive of component of intravascular depletion. However creatinine within normal limits. Troponin is elevated at 0.203 SPECT is to be related to demand in the setting of the patient's acute respiratory failure. BNP 5600 of unclear significance without prior values for comparison. Procalcitonin 0.31 however nonspecific given the patient's acute onset of symptoms. Cephalad quad was negative for COVID-19, influenza and RSV. UA is suspicious for infection albeit with epithelial cells. Patient was treated with empiric antibiotics for broad-spectrum coverage with Zosyn and vancomycin on arrival. CT of the head, soft tissue neck, CTA of the chest and CT abdomen and pelvis were ordered and pending. Case was discussed with Dr. Garcia, [facility] hospitalist, who will evaluate the patient for admission. Case was also discussed with Dr. Barlow, ICU gaming department head on behalf of admitting team. I did cursory review of the patient's images while he was at CT and did not appreciate any emergent findings that would preclude his admission to our facility. Patient was transferred to ICU. CT A chest negative for PE but further characterizes multifocal pneumonia. No additional acute findings. Triage Nursing notes reviewed and agree them. Additional history obtained from EMS, Prior medical records reviewed Vital Signs: reviewed and remarkable for hypoxia, tachypnea, tachycardia. Differential diagnosis: Sepsis, UTI, pneumonia, metabolic, electrolyte abnormalities, cardiac sources, intracerebral event, toxicologic, neurologic, as well as other pathologies. ER treatment provided: See below. Diagnostics interpreted by me: ECG: Sinus tachycardia with PVCs, 158 bpm, incomplete right bundle branch block, no overt ST elevation, QTc 444, QRS 100. Cardiac Monitoring: An order for continuous cardiac monitoring was placed and demonstrated Sinus tachycardia with PVCs, 158 bpm Laboratory studies: See below Imaging studies: XR chest 1V portable CLINICAL HISTORY: SEPSIS RESPIRATORY FAILURE COMPARISON STUDY: 03/18/2020 FINDINGS: There is an endotracheal tube 4.5 cm above the mahesh. There is a nasogastric tube with its tip at the esophagogastric junction. There is a right subclavian A-Port catheter, tip of which projects at the superior vena cava. There is elevation the right hemidiaphragmatic contour. There are asymmetric bilateral pulmonary airspace opacities most pronounced on the right. The findings are consistent with a multifocal pneumonia. There is a suspected small right pleural effusion[ IMPRESSION: 1. Moderately extensive right lung airspace opacities, and minimal left lung airspace opacities. Advise are suspicious for a multifocal pneumonia. Clinical and radiographic follow-up is recommended. 2. Suspected small right pleural effusion HEAD CT NONCONTRAST CT DOSE: 1936.41 mGy.cm HISTORY: sepsis, resp failure, h/o lymphoma TECHNIQUE: Multiaxial CT images of the head were performed without the use of intravenous contrast. Automated exposure control was utilized for this study. A dose lowering technique was utilized adhering to the principles of ALARA. Comparison: Head CT 03/18/2020. Findings: The paranasal sinuses and mastoid air cells are clear. The calvarium and skull base are intact. There is no mass, hematoma, midline shift, acute infarct. White matter hypodensity is nonspecific but suggestive of microvascular ischemic change. The ventricles and sulci demonstrate mild age-related involutional changes. Small amount of layering fluid within the posterior oropharynx. Impression: No acute intracranial abnormality. Small amount of layering fluid within the posterior oropharynx. ACT 112: Negative or not required by law. -- CT soft tissue neck w con HISTORY: sepsis, resp failure, h/o lymphoma TECHNIQUE: Multiaxial CT images of the neck were performed following the use of intravenous contrast. COMPARISON STUDY: Cervical spine CT 05/29/2019. FINDINGS: Patchy multifocal airspace opacities are noted within the lung apices. This is better appreciated on the same day chest CT. An endotracheal tube and nasogastric tube are partially visualized small amount of fluid within the post erior oropharynx is likely due to the intubation. The visualized paranasal sinuses and mastoid air cells are clear. No fractures within the visualized osseous structures. The thyroid gland enhances normally. Mild to moderate calcified plaque within the bilateral carotid bifurcations. No significant stenosis or occlusion within the major cervical vessels. The orbits are unremarkable. The parotid and submandibular glands are symmetric. Prevertebral soft tissues are normal in thickness. Mass effect along the epiglottis from the endotracheal tube. However, the epiglottis appears normal in thickness. Parapharyngeal fat spaces are maintained. No lymphadenopathy, mass, or abscess identified within the neck. Degenerative changes noted within the cervical spine. IMPRESSION: 1. Endotracheal tube and nasogastric tube are partially visualized. These are better appreciated on the same day chest CT. 2. Multifocal airspace opacities within the lung apices are also better appreciated on the same day chest CT. 3. No mass, lymphadenopathy, or abscess identified within the neck. 4. Small amount of fluid layering within the posterior oropharynx is likely due to the intubation. ACT 112: Negative or not required by law. CT ANGIOGRAM OF THE CHEST CLINICAL HISTORY: Respiratory failure. Sepsis. Possible pulmonary embolism COMPARISON STUDY: Chest CT dated 01/15/2020, chest x-ray dated 04/23/2020 TECHNIQUE: Following the IV administration of 120 mL of Optiray-320, CT angiogram of the thorax was performed from the thoracic inlet to the lung bases utilizing the pulmonary embolus protocol. Images are reviewed in the axial, sagittal, and coronal planes. IV contrast was administered without complication. MIP imaging was performed. A dose lowering technique was utilized adhering to the principles of ALARA. CT DOSE: FINDINGS: No pathologically enlarged axillary mediastinal or hilar lymph nodes were visualized. The ascending thoracic aorta measures 38 mm There were no pulmonary artery filling defects to indicate acute pulmonary embolism. No pleural effusions are visualized. There are bilateral multifocal airspace opacities consistent with a multifocal pneumonia. There is right lower lobe atelectasis/consolidation with volume loss. There is mild interlobular septal thickening. There is an endotracheal tube 34 mm above the mahesh. There is a nasogastric tube with its tip in the distal esophagus. There is a right subclavian central venous catheter with its tip in superior vena cava. IMPRESSION: 1. No evidence of acute pulmonary embolism 2. Right lower lobe atelectasis/consolidation with volume loss 3. Bilateral multifocal nodular airspace opacities indicative of a multifocal pneumonia. 4. Mild interlobular septal edema 5. Nasogastric tube terminating within the distal esophagus ACT 112: Negative or not required by law. CT OF THE ABDOMEN AND PELVIS WITH CONTRAST CLINICAL HISTORY: sepsis, respiratory failure, h/o lymphoma COMPARISON STUDY: CT of the abdomen and pelvis January 15, 2020. PET/CT November 19, 2019. TECHNIQUE: Following IV administration of 120 mL of Optiray-320, axial images of the abdomen and pelvis were obtained from the lung bases to the proximal femurs. Images were reviewed in the axial, sagittal, and coronal planes. IV contrast was administered without complication. Automated exposure control was utilized for the study. A dose lowering technique was utilized adhering to the principles of ALARA. FINDINGS: Please note that the chest CT will be reported separately. Right lower lobe consolidation/atelectasis, interlobular septal thickening and multifocal airspace opacities are better depicted on the chest CT. No pneumatosis, free air or portal venous gas is present. The liver, spleen, adrenal glands, kidneys and pancreas are unremarkable. There is no biliary or pancreatic ductal dilatation. There is no peripancreatic or pericholecystic infiltration. No hydronephrosis is present. The appendix is normal. A moderate amount of stool within the rectum is noted. There is no evidence for a bowel obstruction. There is no ascites. No abdominal or pelvic lymphadenopathy is present. Infrarenal abdominal aorta is ectatic, measuring 2.7 cm in caliber. There is mild anasarca. Bladder wall thickening is noted. A James balloon within the bladder is noted. Postoperative findings within the proximal right femur incidentally noted. IMPRESSION: 1. Moderate amount stool within the rectum. No evidence for a bowel obstruction. 2. Nonspecific bladder wall thickening. 3. Normal appendix. No bowel wall thickening. 4. Right lower lobe consolidation/atelectasis, interlobular septal thickening and multifocal airspace opacities within lungs which are better depicted on the chest CT. Please see that report for further description. ACT 112: Negative or not required by law. Consultation(s): Dr. Garcia, [facility] hospitalist. Dr. Barlow, [place] ICU gaming department head. HPI: The patient is a 69-year-old gentleman with past medical history of non- Hodgkin's lymphoma with completion of treatment in November 2019 currently reported to be needed remission but with neurologic sequelae believed to be related to his chemotherapy where he has generalized weakness in all extremities and is nonambulatory, with recent admission to [facility] for urosepsis found to have atrial fibrillation discharged to [facility] and recently discharged home on Sunday where the patient's reports that he has had some mild congestion over the past couple of days but then this morning when he was changing his clothes where she needs to lie him on his side he began to exhibit acute difficulty breathing where EMS was called and found the patient to be hypoxic to low 80s despite being on nonrebreather without any significant improvement on CPAP. I did review with the patient's over the phone the patient's presentation following intubation per description below and the did confirm that they did want everything done at this time and the patient was full code. ROS: See above HPI for pertinent positives & negatives. A total of 10 systems reviewed and were otherwise negative. PAST MEDICAL HISTORY:See Below PAST SURGICAL HISTORY:See Below FAMILY HISTORY:See Below SOCIAL HISTORY:See Below HOME MEDICATIONS:See Below ALLERGIES:See Below VITALS:See Below PHYSICAL EXAMINATION: GENERAL: Unresponsive. GCS 6. Toxic-appearing. Cachectic. HENT: Normocephalic, atraumatic. Oropharynx dry and cracked. EYES: Normal conjunctiva. Sclera non-icteric. NECK: No nuchal rigidity. No JVD. No stridor. RESPIRATORY: Scattered wheezes and rhonchi. Severe respiratory distress. CARDIAC: Tachycardic rate, normal rhythm. Extremities cool, clammy, delayed cap refill. Pulses equal. ABDOMEN: Soft, non-distended. No tenderness to palpation. RECTAL: Deferred. MUSCULOSKELETAL: Pectus Carinatum. No joint edema. LOWER EXTREMITIES: Calves are equal size bilaterally and non-tender. No edema. No discoloration. NEURO: GCS 6. Eyes open but unresponsive. Nonverbal. No motor response to painful stimuli. SKIN: No rash or jaundice noted. ED COURSE: Procedures: Endotracheal Intubation Indication Respiratory failure The patient was on 100% oxygen via NRB prior to the procedure. Suction, airway equipment, RSI drugs, respiratory equipment, and appropriate personnel were prepared prior to the initiation of the procedure. A time out was taken. Induction was performed with Etomidate and paralysis with Rocuronium. After observing the clinical benefit of the medications, the airway was easily visua lized utilizing a Glidescope with MAC-3 blade. A 8.0 size ETT tube was placed atraumatically to 22 cm using standard technique. The cuff inflated without signs of malfunction. There were bilateral breath sounds, positive colormetric change, no gastric sounds, a good capnography waveform, and post procedure pulse oximetry was 100%. Post intubation sedation was administered using Propofol. There were no complications. Critical Care: I have personally spent greater than 125 minutes of critical care time in the direct management of this patient. This includes bedside care, interpretation of diagnostic studies, and testing, discussion with consultants, patient, and family members, and other required patient management activities. This 125 minutes is in excess of all separately billable procedures. Elian Obrien MD Past Med/Surg History Medical History Acid reflux Cervical spine disease Gastric ulcer History of ASCVD HTN (hypertension) Hyperlipemia Non Hodgkin's lymphoma Pancreatic mass Vitamin D deficiency Surgical History History of esophagogastroduodenoscopy (EGD) History of hip surgery PINNING RIGHT HIP-AGE 17 Port-A-Cath in place (06/16/19) Access port placement. Dr. Lyn 06/16/19 Family History Father Myocardial infarction Heart disease Brother Cancer Hypertension Other Family history non-contributory Social History Smoking Status: Never smoker Second Hand Exposure: No; Do You Dip or Chew Tobacco: No; Tobacco Cessation Education Requested by Patient: No Hx Alcohol Use: Yes Alcohol type: beer Hx Substance Use: No Preferred Language: Welsh Communication Ability: Impaired Communication Ability Comment: UNRESPONSIVE/INTUBATED Certified Detention Deputy Required: No Beliefs That Will Affect Care: None marital status: Current Living Situation: Spouse current occupational status: retired Other Information That Helps Us Care for You: No Feels Safe at Home: Yes Safety Concerns: Feels Safe At This Time Assistive Devices: Denture - Upper, Denture - Lower and Oxygen - Continuous Allergies Allergies Allergy/AdvReac Type Severity Reaction Status Date / Time ibuprofen Allergy Severe ANAPHYLAXIS Verified 04/23/20 12:28 Home Meds Home Medications Medication Instructions Recorded Confirmed ferrous sulfate 325 mg (65 mg 325 mg PO QAM 02/02/20 04/23/20 iron) tablet cholecalciferol (vitamin D3) 50,000 unit PO WK 03/18/20 04/23/20 gabapentin 400 mg PO HS 03/18/20 04/23/20 acetaminophen 325 mg tablet 650 mg PO QID PRN tab 04/16/20 04/23/20 apixaban 5 mg tablet 5 mg PO BID 04/16/20 04/23/20 calcium carbonate 200 mg calcium 200 mg PO QID PRN 04/16/20 04/23/20 (500 mg) chewable tablet digoxin 125 mcg (0.125 mg) tablet 125 mcg PO HS 04/16/20 04/23/20 metoprolol succinate [Kapspargo 200 mg PO QAM 04/23/20 04/23/20 Sprinkle] Previous Rx's Medication Instructions Recorded Wheelchair (Manual or Powered) #1 ea 02/10/20 Results & Data (ED) Vital Signs Vital Signs - 24 hr 04/23/20 10:38 04/23/20 10:43 04/23/20 10:50 Pulse Rate 143 H 166 H 137 H Pulse Rate from SpO2 Sensor Respiratory Rate 30 H 32 H 33 H Respiratory Depth Shallow Respiratory Pattern Agonal Blood Pressure 106/71 Blood Pressure Mean 91 Pulse Oximetry 84 L Oxygen Delivery Method BiPAP Fraction of Inspired Oxygen Sepsis Recent Fever Within 48 Hours No Sepsis New/Unexplained Change in Mental Status N/A Sepsis Action Taken by Nursing Physician Notified End-Tidal CO2 04/23/20 11:00 04/23/20 11:11 04/23/20 11:15 Pulse Rate 187 H 169 H 151 H Pulse Rate from SpO2 Sensor Respiratory Rate 15 20 Respiratory Depth Respiratory Pattern Blood Pressure Blood Pressure Mean Pulse Oximetry 94 Oxygen Delivery Method Fraction of Inspired Oxygen 100 Sepsis Recent Fever Within 48 Hours Sepsis New/Unexplained Change in Mental Status Sepsis Action Taken by Nursing End-Tidal CO2 28 29 04/23/20 11:21 04/23/20 11:30 04/23/20 11:40 Pulse Rate 150 H 153 H 161 H Pulse Rate from SpO2 Sensor 164 H 121 H 142 H Respiratory Rate Respiratory Depth Respiratory Pattern Blood Pressure Blood Pressure Mean Pulse Oximetry 87 L 88 L 89 L Oxygen Delivery Method Fraction of Inspired Oxygen Sepsis Recent Fever Within 48 Hours Sepsis New/Unexplained Change in Mental Status Sepsis Action Taken by Nursing End-Tidal CO2 30 29 29 04/23/20 11:51 04/23/20 12:00 04/23/20 12:10 Pulse Rate 145 H 146 H 143 H Pulse Rate from SpO2 Sensor 136 H 129 H 124 H Respiratory Rate Respiratory Depth Respiratory Pattern Blood Pressure Blood Pressure Mean Pulse Oximetry 91 96 98 Oxygen Delivery Method Fraction of Inspired Oxygen Sepsis Recent Fever Within 48 Hours Sepsis New/Unexplained Change in Mental Status Sepsis Action Taken by Nursing End-Tidal CO2 28 29 30 04/23/20 12:21 04/23/20 12:25 04/23/20 12:30 Pulse Rate 135 H 128 H 134 H Pulse Rate from SpO2 Sensor 121 H 122 H 115 H Respiratory Rate Respiratory Depth Respiratory Pattern Blood Pressure 108/61 100/75 Blood Pressure Mean 98 81 Pulse Oximetry 99 100 100 Oxygen Delivery Method Fraction of Inspired Oxygen Sepsis Recent Fever Within 48 Hours Sepsis New/Unexplained Change in Mental Status Sepsis Action Taken by Nursing End-Tidal CO2 29 28 29 04/23/20 12:32 Pulse Rate 124 H Pulse Rate from SpO2 Sensor 112 H Respiratory Rate Respiratory Depth Respiratory Pattern Blood Pressure Blood Pressure Mean Pulse Oximetry 100 Oxygen Delivery Method Fraction of Inspired Oxygen Sepsis Recent Fever Within 48 Hours Sepsis New/Unexplained Change in Mental Status Sepsis Action Taken by Nursing End-Tidal CO2 29 Laboratory Data Attestation: I reviewed the patient's lab results. Result diagrams: 04/23/20 10:50 04/23/20 10:50 Lab Results 04/23/20 04/23/20 04/23/20 Range/Units 10:50 10:50 10:50 WBC 24.37 H (4.8-10.8) K/uL RBC 3.81 L (4.7-6.1) M/uL Hgb 11.6 L (14.0-18.0) g/dL Hct 34.8 L (42-52) % MCV 91.3 (80-100) fL MCH 30.4 (25-34) pg MCHC 33.3 (32-36) g/dL RDW Std Deviation 51.6 H (36.4-46.3) fL RDW Coeff of Nallely 15.4 H (11.5-14.5) % Plt Count 561 H (130-400) K/uL MPV 9.1 (7.4-10.4) fL Immature Gran % (Auto) 1.2 % Neut % (Auto) 82.3 % Lymph % (Auto) 6.6 % [place] % (Auto) 9.8 % Eos % (Auto) 0.0 % Baso % (Auto) 0.1 % Neut # (Auto) 20.04 H (1.4-6.5) K/uL Lymph # (Auto) 1.60 (1.2-3.4) K/uL [place] # (Auto) 2.40 H (0.11-0.59) K/uL Eos # (Auto) 0.01 (0-0.5) K/uL Baso # (Auto) 0.02 (0-0.2) K/uL Immature Gran # (Auto) 0.30 H (0.00-0.02) K/uL PT (9.0-12.0) Seconds INR (0.9-1.1) APTT (21.0-31.0) Seconds PTT Ratio VBG pH (7.36-7.41) VBG pCO2 (38-50) mmHg VBG pO2 mmHg VBG HCO3 mmol/L VBG O2 Saturation % VBG Base Excess mEq/L Barometric Pressure mm/Hg Sodium 132 L (136-145) mmol/L Potassium 4.3 (3.5-5.1) mmol/L Chloride 98 (98-107) mmol/L Carbon Dioxide 27 (21-32) mmol/L Anion Gap 7.0 (3-11) BUN 19 H (7-18) mg/dl Creatinine 0.76 (0.6-1.4) mg/dl Est Cr Clr Drug Dosing 97.9 ml/min Est GFR ( Amer) 106.4 Est GFR (Non-Af Amer) 91.8 BUN/Creatinine Ratio 25.4 H (10-20) Glucose 144 H (70-99) mg/dl Lactate (0.4-2.0) mmol/L Calcium 10.0 (8.5-10.1) mg/dl Phosphorus 5.1 H (2.5-4.9) mg/dl Magnesium 1.9 (1.8-2.4) mg/dl Total Bilirubin 0.9 (0.2-1) mg/dl Direct Bilirubin 0.4 H (0-0.2) mg/dl AST 64 H (15-37) U/L ALT 50 (12-78) U/L Alkaline Phosphatase 181 H (45-117) U/L Troponin I 0.203 H* (0-0.045) ng/ml NT-Pro-B Natriuret Pep 5635 H (0-900) pg/ml Total Protein 7.2 (6.4-8.2) gm/dl Albumin 2.7 L (3.4-5.0) gm/dl Globulin 4.5 H (2.5-4.0) gm/dl Albumin/Globulin Ratio 0.6 L (0.9-2) Procalcitonin 0.31 (0-0.5) ng/ml TSH 1.080 (0.300-4.500) uIu/ml Urine Color Urine Appearance (Clear) Urine pH (4.5-7.5) Ur Specific [place] (1.000-1.030) Urine Protein (Negative) Urine Glucose (UA) (Negative) Urine Ketones (Negative) Urine Blood (Negative) Urine Nitrite (Negative) Urine Bilirubin (Negative) Urine Urobilinogen (Negative) Ur Leukocyte Esterase (Negative) Urine WBC (Auto) (0-5) /hpf Urine RBC (Auto) (0-4) /hpf U Hyaline Cast (Auto) (0-5) /lpf U Epithel Cells (Auto) (0-5) /lpf Urine Bacteria (Auto) (Negative) Granular Casts (0) /lpf Urine Yeast COVID-19 Eval Order SARS-CoV-2 (PCR) (Negative) Influenza Type A (PCR) (Neg) Influenza Type B (PCR) (Neg) RSV (RT-PCR) (Neg) 04/23/20 04/23/20 04/23/20 Range/Units 10:50 10:50 10:54 WBC (4.8-10.8) K/uL RBC (4.7-6.1) M/uL Hgb (14.0-18.0) g/dL Hct (42-52) % MCV (80-100) fL MCH (25-34) pg MCHC (32-36) g/dL RDW Std Deviation (36.4-46.3) fL RDW Coeff of Nallely (11.5-14.5) % Plt Count (130-400) K/uL MPV (7.4-10.4) fL Immature Gran % (Auto) % Neut % (Auto) % Lymph % (Auto) % [place] % (Auto) % Eos % (Auto) % Baso % (Auto) % Neut # (Auto) (1.4-6.5) K/uL Lymph # (Auto) (1.2-3.4) K/uL [place] # (Auto) (0.11-0.59) K/uL Eos # (Auto) (0-0.5) K/uL Baso # (Auto) (0-0.2) K/uL Immature Gran # (Auto) (0.00-0.02) K/uL PT 13.4 H (9.0-12.0) Seconds INR 1.3 H (0.9-1.1) APTT 30.3 (21.0-31.0) Seconds PTT Ratio 1.1 VBG pH (7.36-7.41) VBG pCO2 (38-50) mmHg VBG pO2 mmHg VBG HCO3 mmol/L VBG O2 Saturation % VBG Base Excess mEq/L Barometric Pressure mm/Hg Sodium (136-145) mmol/L Potassium (3.5-5.1) mmol/L Chloride (98-107) mmol/L Carbon Dioxide (21-32) mmol/L Anion Gap (3-11) BUN (7-18) mg/dl Creatinine (0.6-1.4) mg/dl Est Cr Clr Drug Dosing ml/min Est GFR ( Amer) Est GFR (Non-Af Amer) BUN/Creatinine Ratio (10-20) Glucose (70-99) mg/dl Lactate 3.1 H* (0.4-2.0) mmol/L Calcium (8.5-10.1) mg/dl Phosphorus (2.5-4.9) mg/dl Magnesium (1.8-2.4) mg/dl Total Bilirubin (0.2-1) mg/dl Direct Bilirubin (0-0.2) mg/dl AST (15-37) U/L ALT (12-78) U/L Alkaline Phosphatase (45-117) U/L Troponin I (0-0.045) ng/ml NT-Pro-B Natriuret Pep (0-900) pg/ml Total Protein (6.4-8.2) gm/dl Albumin (3.4-5.0) gm/dl Globulin (2.5-4.0) gm/dl Albumin/Globulin Ratio (0.9-2) Procalcitonin (0-0.5) ng/ml TSH (0.300-4.500) uIu/ml Urine Color Urine Appearance (Clear) Urine pH (4.5-7.5) Ur Specific [place] (1.000-1.030) Urine Protein (Negative) Urine Glucose (UA) (Negative) Urine Ketones (Negative) Urine Blood (Negative) Urine Nitrite (Negative) Urine Bilirubin (Negative) Urine Urobilinogen (Negative) Ur Leukocyte Esterase (Negative) Urine WBC (Auto) (0-5) /hpf Urine RBC (Auto) (0-4) /hpf U Hyaline Cast (Auto) (0-5) /lpf U Epithel Cells (Auto) (0-5) /lpf Urine Bacteria (Auto) (Negative) Granular Casts (0) /lpf Urine Yeast COVID-19 Eval Order [facility] at [facility] SARS-CoV-2 (PCR) (Negative) Influenza Type A (PCR) (Neg) Influenza Type B (PCR) (Neg) RSV (RT-PCR) (Neg) 04/23/20 04/23/20 04/23/20 Range/Units 10:54 11:12 11:39 WBC (4.8-10.8) K/uL RBC (4.7-6.1) M/uL Hgb (14.0-18.0) g/dL Hct (42-52) % MCV (80-100) fL MCH (25-34) pg MCHC (32-36) g/dL RDW Std Deviation (36.4-46.3) fL RDW Coeff of [place] (11.5-14.5) % Plt Count (130-400) K/uL MPV (7.4-10.4) fL Immature Gran % (Auto) % Neut % (Auto) % Lymph % (Auto) % [place] % (Auto) % Eos % (Auto) % Baso % (Auto) % Neut # (Auto) (1.4-6.5) K/uL Lymph # (Auto) (1.2-3.4) K/uL [place] # (Auto) (0.11-0.59) K/uL Eos # (Auto) (0-0.5) K/uL Baso # (Auto) (0-0.2) K/uL Immature Gran # (Auto) (0.00-0.02) K/uL PT (9.0-12.0) Seconds INR (0.9-1.1) APTT (21.0-31.0) Seconds PTT Ratio VBG pH 7.20 L (7.36-7.41) VBG pCO2 67 H (38-50) mmHg VBG pO2 36 mmHg VBG HCO3 26 mmol/L VBG O2 Saturation < 60.0 % VBG Base Excess -3.0 mEq/L Barometric Pressure 732.6 mm/Hg Sodium (136-145) mmol/L Potassium (3.5-5.1) mmol/L Chloride (98-107) mmol/L Carbon Dioxide (21-32) mmol/L Anion Gap (3-11) BUN (7-18) mg/dl Creatinine (0.6-1.4) mg/dl Est Cr Clr Drug Dosing ml/min Est GFR ( Amer) Est GFR (Non-Af Amer) BUN/Creatinine Ratio (10-20) Glucose (70-99) mg/dl Lactate (0.4-2.0) mmol/L Calcium (8.5-10.1) mg/dl Phosphorus (2.5-4.9) mg/dl Magnesium (1.8-2.4) mg/dl Total Bilirubin (0.2-1) mg/dl Direct Bilirubin (0-0.2) mg/dl AST (15-37) U/L ALT (12-78) U/L Alkaline Phosphatase (45-117) U/L Troponin I (0-0.045) ng/ml NT-Pro-B Natriuret Pep (0-900) pg/ml Total Protein (6.4-8.2) gm/dl Albumin (3.4-5.0) gm/dl Globulin (2.5-4.0) gm/dl Albumin/Globulin Ratio (0.9-2) Procalcitonin (0-0.5) ng/ml TSH (0.300-4.500) uIu/ml Urine Color Dark Yellow Urine Appearance Turbid A (Clear) Urine pH 5.5 (4.5-7.5) Ur Specific [place] 1.020 (1.000-1.030) Urine Protein 2+ H (Negative) Urine Glucose (UA) Negative (Negative) Urine Ketones Negative (Negative) Urine Blood 2+ H (Negative) Urine Nitrite Negative (Negative) Urine Bilirubin Negative (Negative) Urine Urobilinogen Negative (Negative) Ur Leukocyte Esterase 3+ H (Negative) Urine WBC (Auto) >30 H (0-5) /hpf Urine RBC (Auto) 10-30 H (0-4) /hpf U Hyaline Cast (Auto) 10-30 H (0-5) /lpf U Epithel Cells (Auto) >30 H (0-5) /lpf Urine Bacteria (Auto) 3+ H (Negative) Granular Casts 1-5 H (0) /lpf Urine Yeast Not Reportable COVID-19 Eval Order SARS-CoV-2 (PCR) NEGATIVE (Negative) Influenza Type A (PCR) Negative (Neg) Influenza Type B (PCR) Negative (Neg) RSV (RT-PCR) Negative (Neg) Administered Medications Fentanyl Citrate (Fentanyl Citrate 100 Mcg/2 Ml Vial) 50 mcg IV Q2H PRN PRN Reason: Moderate Pain (4,5,6) on NRS Stop: 05/07/20 14:23 Last Admin: 04/23/20 17:21 Dose: 50 mcg Documented by: [id number] Admin: 04/23/20 15:17 Dose: 50 mcg Documented by: [id number] Parenteral Electrolytes (Normosol-R) 1,000 mls @ 80 mls/hr IV .[id number] ANA Stop: 05/23/20 14:29 Last Admin: 04/23/20 16:37 Dose: 80 mls/hr Documented by: [id number] Piperacillin Sod/Tazobactam (Sod 3.375 gm/ Dextrose) 115 mls @ 28.75 mls/hr IV Q8H ANA; Protocol Stop: 04/30/20 17:59 Last Infusion: 04/23/20 21:25 Dose: 28.8 mls/hr Documented by: [id number] Admin: 04/23/20 17:25 Dose: 28.8 mls/hr Documented by: [id number] Midazolam HCl (Midazolam Hcl 1 Mg/Ml 2ml Vial) 1 mg IV Q2H PRN PRN Reason: RASS goal -1 Stop: 05/23/20 14:23 Last Admin: 04/23/20 15:18 Dose: 1 mg Documented by: [id number] Propofol (Propofol Bolus From Bag) 20 mg IV Q5M PRN PRN Reason: Sedation Stop: 04/26/20 11:47 Last Admin: 04/23/20 12:40 Dose: 20 mg Documented by: [id number] Cosigned by: [id number] Admin: 04/23/20 12:07 Dose: 20 mg Documented by: [id number] Cosigned by: [id number] Discontinued Medications Etomidate (Etomidate 2 Mg/Ml 20 Ml Vial) 20 mg IV NOW ONE Stop: 04/23/20 10:42 Last Admin: 04/23/20 12:20 Dose: 20 mg Documented by: [id number] Fentanyl Citrate (Fentanyl Citrate 100 Mcg/2 Ml Vial) Confirm Administered Dose 100 mcg .ROUTE .STK-MED ONE Stop: 04/23/20 14:31 Last Admin: 04/23/20 15:18 Dose: Not Given Documented by: [id number] Sodium Chloride (Nss 1000ml) 1,000 mls @ 999 mls/hr IV .Q1H1M ONE Stop: 04/23/20 11:45 Last Infusion: 04/23/20 12:23 Dose: 0 mls/hr Documented by: [id number] Admin: 04/23/20 11:19 Dose: 999 mls/hr Documented by: [id number] Piperacillin Sod/Tazobactam Sod (Zosyn) 4.5 gm in 120 mls @ 240 mls/hr IV NOW ONE Stop: 04/23/20 11:56 Last Infusion: 04/23/20 12:38 Dose: 0 mls/hr Documented by: [id number] Admin: 04/23/20 12:07 Dose: 240 mls/hr Documented by: [id number] Vancomycin HCl 1,500 mg/ (Sodium Chloride) 530 mls @ 200 mls/hr IV NOW ONE Stop: 04/23/20 14:05 Last Infusion: 04/23/20 16:38 Dose: 0 mls/hr Documented by: [id number] Admin: 04/23/20 12:07 Dose: 200 mls/hr Documented by: [id number] Sodium Chloride (Nss 1000ml) 1,000 mls @ 999 mls/hr IV .Q1H1M ANA Stop: 04/23/20 12:28 Last Infusion: 04/23/20 15:27 Dose: 0 mls/hr Documented by: [id number] Admin: 04/23/20 14:11 Dose: 999 mls/hr Documented by: [id number] Sodium Chloride (Nss 1000ml) 400 mls @ 999 mls/hr IV .Q25M ANA Stop: 04/23/20 12:52 Last Infusion: 04/23/20 12:38 Dose: 0 mls/hr Documented by: [id number] Admin: 04/23/20 12:07 Dose: 999 mls/hr Documented by: [id number] Dexamethasone Sodium Phosphate (10 mg/ Syringe) 2.5 mls @ 1 mls/min IV NOW STA Stop: 04/23/20 11:31 Last Admin: 04/23/20 12:08 Dose: 1 mls/min Documented by: [id number] Propofol (Diprivan) 1,000 mg in 100 mls @ 7.128 mls/hr IV .Q14H2M ANA; Protocol Stop: 04/23/20 14:24 Last Titration: 04/23/20 14:30 Dose: 0 mcg/kg/min, 0 mls/hr Documented by: [id number] Titration: 04/23/20 14:12 Dose: 15 mcg/kg/min, 7.1 mls/hr Documented by: [id number] Cosigned by: [id number] Admin: 04/23/20 12:00 Dose: 20 mcg/kg/min, 9.5 mls/hr Documented by: [id number] Cosigned by: [id number] Ioversol (Optiray 320 125ml) 120 ml IV ONCE ONE Stop: 04/23/20 13:23 Last Admin: 04/23/20 13:22 Dose: 120 ml Documented by: [id number] Metoprolol Tartrate (Metoprolol Tartrate 1 Mg/Ml Vial) Confirm Administered Dose 5 mg IV .STK-MED ONE Stop: 04/23/20 14:19 Last Admin: 04/23/20 14:55 Dose: Not Given Documented by: [id number] Metoprolol Tartrate (Metoprolol Tartrate 1 Mg/Ml Vial) 2.5 mg IV NOW STA Stop: 04/23/20 14:28 Last Admin: 04/23/20 14:55 Dose: 2.5 mg Documented by: [id number] Midazolam HCl (Midazolam Hcl 1 Mg/Ml 2ml Vial) Confirm Administered Dose 2 mg .ROUTE .STK-MED ONE Stop: 04/23/20 14:31 Last Admin: 04/23/20 15:18 Dose: Not Given Documented by: [id number] Miscellaneous (Rapid Sequence Induction Bag) Confirm Administered Dose 1 ea .ROUTE .STK-MED ONE Stop: 04/23/20 10:42 Last Admin: 04/23/20 12:23 Dose: 1 ea Documented by: [id number] Miscellaneous (Stat Iv Infusion Titration Per Protocol) 1 ea N/A NOW STA Stop: 04/23/20 11:49 Last Admin: 04/23/20 12:08 Dose: 1 ea Documented by: [id number] Rocuronium [place] (Rocuronium [place] 10 Mg/Ml 5 Ml Vial) 80 mg IV ONCE STA Stop: 04/23/20 10:42 Last Admin: 04/23/20 12:20 Dose: 80 mg Documented by: [id number] Cosigned by: [id number] Discharge Plan Visit Data Chief Complaint: Respiratory Distress ED Provider: Elian Obrien Discharge Problem: Acute respiratory failure with hypoxia, Multifocal pneumonia, Sepsis, Elevated troponin Patient Disposition: Admitted As Inpatient Discharge Instructions Interventions: ED Discharge Assessment Last Done: 04/23/20 13:33 Discharge Problem: Sepsis Qualifiers: Sepsis type: sepsis due to unspecified organism Sepsis acute organ dysfunction status: with acute organ dysfunction Severe sepsis acute organ dysfunction type: acute respiratory failure Acute respiratory failure type: with hypoxia Severe sepsis shock status: without septic shock Qualified Code(s): A41.9 - Sepsis, unspecified organism
[2020-04-23 12:53] LABS: Appearance Urine Turbid (Clear); Bacteria Urine Automated 3+ (Negative); Bilirubin Urine Negative (Negative); Blood Urine 2+ (Negative); Color Urine Dark Yellow; Epithelial Cell Urine Auto >30 /lpf (0-5); Glucose Urine UA Negative (Negative); Ketones Urine Negative (Negative); Leukocyte Esterase Urine 3+ (Negative); Nitrite Urine Negative (Negative); Protein Urine 2+ (Negative); Urobilinogen Urine Negative (Negative); WBC Urine Automated >30 /hpf (0-5); pH Urine 5.5 (4.5-7.5)
[2020-04-23] MEDS ORDERED: OPTIRAY 320 125ml IV ONE (13:22)
--- NOTE | 2020-04-23 13:32 | CT Scan Report ---
HEAD CT NONCONTRAST CT DOSE: 1936.41 mGy.cm HISTORY: sepsis, resp failure, h/o lymphoma TECHNIQUE: Multiaxial CT images of the head were performed without the use of intravenous contrast. A utomated exposure control was utilized for this study. A dose lowering technique was utilized adheri ng to the principles of ALARA. Comparison: Head CT 03/18/2020. Findings: The paranasal sinuses and mastoid air cells are clear. The calvarium and skull base are int act. There is no mass, hematoma, midline shift, acute infarct. White matter hypodensity is nonspecifi c but suggestive of microvascular ischemic change. The ventricles and sulci demonstrate mild age-rela melissa involutional changes. Small amount of layering fluid within the posterior oropharynx. Impression: No acute intracranial abnormality. Small amount of layering fluid within the posterior oropharynx. ACT 112: Negative or not required by law. Electronically signed by: Mayur Terry M.D. 04/23/2020 1:31 PM
--- NOTE | 2020-04-23 13:36 | CT Scan Report ---
CT ANGIOGRAM OF THE CHEST CLINICAL HISTORY: Respiratory failure. Sepsis. Possible pulmonary embolism COMPARISON STUDY: Chest CT dated 01/15/2020, chest x-ray dated 04/23/2020 TECHNIQUE: Following the IV administration of 120 mL of Optiray-320, CT angiogram of the thorax was p erformed from the thoracic inlet to the lung bases utilizing the pulmonary embolus protocol. Images a re reviewed in the axial, sagittal, and coronal planes. IV contrast was administered without complica tion. MIP imaging was performed. A dose lowering technique was utilized adhering to the principles o f ALARA. CT DOSE: FINDINGS: No pathologically enlarged axillary mediastinal or hilar lymph nodes were visualized. The ascending thoracic aorta measures 38 mm There were no pulmonary artery filling defects to indicate acute pulmonary embolism. No pleural effusions are visualized. There are bilateral multifocal airspace opacities consistent with a multifocal pneumonia. There is ri ght lower lobe atelectasis/consolidation with volume loss. There is mild interlobular septal thickeni ng. There is an endotracheal tube 34 mm above the mahesh. There is a nasogastric tube with its tip in the distal esophagus. There is a right subclavian central venous catheter with its tip in superior vena cava. IMPRESSION: 1. No evidence of acute pulmonary embolism 2. Right lower lobe atelectasis/consolidation with volume loss 3. Bilateral multifocal nodular airspace opacities indicative of a multifocal pneumonia. 4. Mild interlobular septal edema 5. Nasogastric tube terminating within the distal esophagus ACT 112: Negative or not required by law. Electronically signed by: Xavier Zaldivar M.D. 04/23/2020 1:35 PM
--- NOTE | 2020-04-23 13:37 | CT Scan Report ---
CT soft tissue neck w con HISTORY: sepsis, resp failure, h/o lymphoma TECHNIQUE: Multiaxial CT images of the neck were performed following the use of intravenous contrast. COMPARISON STUDY: Cervical spine CT 05/29/2019. FINDINGS: Patchy multifocal airspace opacities are noted within the lung apices. This is better appre ciated on the same day chest CT. An endotracheal tube and nasogastric tube are partially visualized s mall amount of fluid within the posterior oropharynx is likely due to the intubation. The visualized paranasal sinuses and mastoid air cells are clear. No fractures within the visualized osseous structu res. The thyroid gland enhances normally. Mild to moderate calcified plaque within the bilateral arias tid bifurcations. No significant stenosis or occlusion within the major cervical vessels. The orbits are unremarkable. The parotid and submandibular glands are symmetric. Prevertebral soft tissues are n ormal in thickness. Mass effect along the epiglottis from the endotracheal tube. However, the epiglot tis appears normal in thickness. Parapharyngeal fat spaces are maintained. No lymphadenopathy, mass, or abscess identified within the neck. Degenerative changes noted within the cervical spine. IMPRESSION: 1. Endotracheal tube and nasogastric tube are partially visualized. These are better appreciated on t he same day chest CT. 2. Multifocal airspace opacities within the lung apices are also better appreciated on the same day c hest CT. 3. No mass, lymphadenopathy, or abscess identified within the neck. 4. Small amount of fluid layering within the posterior oropharynx is likely due to the intubation. ACT 112: Negative or not required by law. Electronically signed by: Mayur Terry M.D. 04/23/2020 1:36 PM
--- NOTE | 2020-04-23 13:38 | CT Scan Report ---
CT OF THE ABDOMEN AND PELVIS WITH CONTRAST CLINICAL HISTORY: sepsis, respiratory failure, h/o lymphoma COMPARISON STUDY: CT of the abdomen and pelvis January 15, 2020. PET/CT November 19, 2019. TECHNIQUE: Following IV administration of 120 mL of Optiray-320, axial images of the abdomen and pelv is were obtained from the lung bases to the proximal femurs. Images were reviewed in the axial, sagit filemon, and coronal planes. IV contrast was administered without complication. Automated exposure contr ol was utilized for the study. A dose lowering technique was utilized adhering to the principles of ALARA. FINDINGS: Please note that the chest CT will be reported separately. Right lower lobe consolidation/a telectasis, interlobular septal thickening and multifocal airspace opacities are better depicted on t he chest CT. No pneumatosis, free air or portal venous gas is present. The liver, spleen, adrenal gla nds, kidneys and pancreas are unremarkable. There is no biliary or pancreatic ductal dilatation. Ther e is no peripancreatic or pericholecystic infiltration. No hydronephrosis is present. The appendix is normal. A moderate amount of stool within the rectum is noted. There is no evidence for a bowel obst ruction. There is no ascites. No abdominal or pelvic lymphadenopathy is present. Infrarenal abdominal aorta is ectatic, measuring 2.7 cm in caliber. There is mild anasarca. Bladder wall thickening is no melissa. A James balloon within the bladder is noted. Postoperative findings within the proximal right fe mur incidentally noted. IMPRESSION: 1. Moderate amount stool within the rectum. No evidence for a bowel obstruction. 2. Nonspecific bladder wall thickening. 3. Normal appendix. No bowel wall thickening. 4. Right lower lobe consolidation/atelectasis, interlobular septal thickening and multifocal airspace opacities within lungs which are better depicted on the chest CT. Please see that report for further description. ACT 112: Negative or not required by law. Electronically signed by: Kurt Aguilar M.D. 04/23/2020 1:36 PM
[2020-04-23] MEDS ORDERED: ICU PROTOCOL FOR HYPERGLYCEMIA PRN (13:45)
[2020-04-23] MEDS ORDERED: METOPROLOL TARTRATE 1 MG/ML VIAL IV ONE (14:18)
[2020-04-23] MEDS ORDERED: METOPROLOL TARTRATE 1 MG/ML VIAL IV STA (14:27)
[2020-04-23] MEDS ORDERED: MIDAZOLAM HCL 1 MG/ML 2ML VIAL ONE (14:30)
[2020-04-23] MEDS ORDERED: fentaNYL citrate 100 MCG/2 ML VIAL ONE (14:30)
--- NOTE | 2020-04-23 15:03 | Electrocardiogram Report ---
Test Reason : Blood Pressure : / mmHG Vent. Rate : 158 BPM Atrial Rate : 159 BPM P-R Int : 000 ms QRS Dur : 100 ms QT Int : 274 ms P-R-T Axes : 000 -84 079 degrees QTc Int : 444 ms Sinus tachycardia with frequent Premature ventricular complexes Left axis deviation Incomplete right bundle branch block Abnormal ECG When compared with ECG of 26-MAR-2020 10:53, Significant changes have occurred Confirmed by Ezekiel Pelletier ([id number]) on 04/23/2020 3:02:57 PM Referred By: REFERRED SELF Confirmed By:Ezekiel Pelletier
[2020-04-23] MEDS: fentaNYL citrate 100 MCG/2 ML VIAL IV PRN ×2 (15:17→17:21)
[2020-04-23] MEDS: MIDAZOLAM HCL 1 MG/ML 2ML VIAL IV PRN (15:18)
[2020-04-23] MEDS: NORMOSOL-R 1,000 ML IV SCH (16:37)
--- NOTE | 2020-04-23 16:48 | Procedure Note ---
Procedure Note: Bronchoscopy Procedure Procedure date: April 23, 2020 Procedure: fiberoptic bronchoscopy Pre-procedure indication: Pulmonary infiltrate Post-procedure Diagnosis: same as above Prior to Procedure: Informed Consent: The risks, benefits, indications, potential complications, and alternatives were explained to the patient's and informed consent obtained. Attending Staff: Eron Barlow DO Resident/APC: Not applicable Skin Prep: Not applicable Anesthesia: Lidocaine The identity of the patient was confirmed and a bedside time out was performed. Description of Procedure: Fiberoptic bronchoscopy was performed via endotracheal tube. Bronchioalveolar lavage of the right middle and right lower lobe was performed. Findings included: Thin creamy secretions that appeared to be completely suctioned Complications: None Specimens: Bronchial washings sent for culture and Gram stain, fungal elements, AFB stain and culture, cell count differential. Estimated blood loss: Zero
[2020-04-23] MEDS: PIPERACILLIN/TAZOBACTAM 3.375 GM in DEXTROSE 5% 100 ML IV SCH (17:25)
[2020-04-24] MEDS: PIPERACILLIN/TAZOBACTAM 3.375 GM in DEXTROSE 5% 100 ML IV SCH ×3 (02:15→17:26)
[2020-04-24 04:40] LABS: Hematocrit (blood only) 33.5 % (42-52); Hemoglobin 11.2 g/dL (14.0-18.0); Immature Granulocytes # (auto) 0.15 K/uL (0.00-0.02); Lymphocytes # (auto) 0.43 K/uL (1.2-3.4); Lymphocytes % (auto) 2.9 %; Mean Corpuscular Hemoglobin 30.1 pg (25-34); Mean Corpuscular Hgb Conc 33.4 g/dL (32-36); Mean Corpuscular Volume 90.1 fL (80-100); Mean Platelet Volume 9.2 fL (7.4-10.4); Monocytes # (auto) 0.72 K/uL (0.11-0.59); Monocytes % (auto) 4.8 %; Neutrophils # (auto) 13.71 K/uL (1.4-6.5); Neutrophils % (auto) 91.3 %; Platelet Count 396 K/uL (130-400); RDW Coefficient of Variation 15.6 % (11.5-14.5); RDW Standard Deviation 51.5 fL (36.4-46.3); Red Blood Count 3.72 M/uL (4.7-6.1); White Blood Count 15.01 K/uL (4.8-10.8)
[2020-04-24] MEDS: NORMOSOL-R 1,000 ML IV SCH ×2 (04:48→17:26)
[2020-04-24 05:05] LABS: BUN Creatinine Ratio 28.9 (10-20); Creatinine Clr Calc Pharmacy 73.3 ml/min; Est GFR (African American) 91.8; Est GFR (Non-African American) 79.2; Magnesium 1.9 mg/dl (1.8-2.4); Potassium 4.5 mmol/L (3.5-5.1)
[2020-04-24 05:17] LABS: Phosphorus 4.5 mg/dl (2.5-4.9); Troponin I 0.716 ng/ml (0-0.045)
--- NOTE | 2020-04-24 06:24 | Critical Care Consultation ---
Date of Consultation April 23, 2020 Assessment & Plan (1) Admitted to intensive care unit: Reason Critically Ill: 69-year-old male with acute hypoxemic respiratory failure required emergent endotracheal intubation in the setting of multifocal pneumonia. Patient presents to the ICU after successful intubation in the emergency setting. Patient found with multifocal pneumonia. Underwent successful bronchoscopy upon arrival. Maintained saturations this time. Continue multifocal coverage with antibiotics including Zosyn. Aim to reduce ventilator settings with hopes for early liberation from ventilator. Per , patient to have no further escalation of care at this time. (2) Acute respiratory failure with hypoxia: (3) Multifocal pneumonia: (4) Sepsis: (5) Elevated troponin: Supervising Physician Co-Signing Physician Notes I have personally spent 45 minutes of critical care time in the direct management of this patient. This is a life/limb threatening event. This includes time spent evaluating patient, direct bedside care, chart review, placing orders, interpretation of diagnostic studies, discussion with consultants, patient, and/or family members regarding treatment decisions, as well as other required patient management activities. This time is exclusive of all separately billable procedures, and teaching time and separate from and in addition to any other critical care service time. History of Present Illness Attending Physician: Nick Garcia MD History of Present Illness Unable to obtain historical information secondary to patient's state of intubation with sedation. Patient intubated on emergent basis in the emergency department secondary to hypoxemic respiratory failure and need for airway management in the obtunded patient. Patient with concerns for aspiration pneumonia and sepsis for possible pulmonary source. Additional history was obtained from the patient's , patient has had progressive dysfunction and weight loss over the past several weeks and has not been enjoying his current state. She is concerned of his mental status as it has been waxing and waning and has not returned to baseline since his last admission in March. In previous discussions the patient would not want to be debilitated nor placed in a nursing facility so she would like information on palliative care/hospice. He is DNR in event of cardiac arrest and with regards to reintubation that needs to be discussed again with the patient's daughter, and the patient himself. Allergies Allergy/AdvReac Type Severity Reaction Status Date / Time ibuprofen Allergy Severe ANAPHYLAXIS Verified 04/23/20 12:28 Home Medications Medication Instructions Recorded Confirmed Type ferrous sulfate 325 mg (65 mg 325 mg PO QAM 02/02/20 04/23/20 History iron) tablet Wheelchair (Manual or Powered) #1 ea 02/10/20 04/16/20 Rx cholecalciferol (vitamin D3) 50,000 unit PO WK 03/18/20 04/23/20 History gabapentin 400 mg PO HS 03/18/20 04/23/20 History acetaminophen 325 mg tablet 650 mg PO QID PRN tab 04/16/20 04/23/20 History apixaban 5 mg tablet 5 mg PO BID 04/16/20 04/23/20 History calcium carbonate 200 mg calcium 200 mg PO QID PRN 04/16/20 04/23/20 History (500 mg) chewable tablet digoxin 125 mcg (0.125 mg) tablet 125 mcg PO HS 04/16/20 04/23/20 History metoprolol succinate [[place] 200 mg PO QAM 04/23/20 04/23/20 History Sprinkle] Patient History Medical History Acid reflux Cervical spine disease Gastric ulcer History of ASCVD HTN (hypertension) Hyperlipemia Non Hodgkin's lymphoma Pancreatic mass Vitamin D deficiency Surgical History History of esophagogastroduodenoscopy (EGD) History of hip surgery PINNING RIGHT HIP-AGE 15 Port-A-Cath in place (06/16/19) Access port placement. Dr. Lyn 06/16/19 Family History Father Myocardial infarction Heart disease Brother Cancer Hypertension Other Family history non-contributory Social History Smoking Status: Never smoker Second Hand Exposure: No; Do You Dip or Chew Tobacco: No; Tobacco Cessation Education Requested by Patient: No Hx Alcohol Use: Yes Alcohol type: beer Hx Substance Use: No Preferred Language: Bengali Communication Ability: Unable Communication Ability Comment: UNRESPONSIVE/INTUBATED Area Attendant Required: No Beliefs That Will Affect Care: None marital status: Current Living Situation: Spouse current occupational status: retired Other Information That Helps Us Care for You: No Feels Safe at Home: Yes Safety Concerns: Feels Safe At This Time Assistive Devices: Denture - Upper, Denture - Lower and Oxygen - Continuous Review of Systems Review of Systems: Unobtainable due to cognitive status, Unobtainable due to endotracheal tube and Unobtainable due to reduced consciousness Physical Exam Physical Exam: General: Arouses to voice Skin: Warm, dry, Head: Atraumatic Ears, nose, mouth and throat: Airway obscured by endotracheal tube Cardiovascular: Normal peripheral perfusion Respiratory: Ventilator settings reviewed Gastrointestinal: Non distended Musculoskeletal: No deformity, significant interosseous muscle wasting and sunken cheeks, cachectic appearing Results & Data Results & Data ([facility]) Vital Signs (Past 12 Hours) Vital Signs Temp Pulse Pulse Resp BP BP Pulse Ox 04/23/20 14:04 122 H 28 H 91/71 L 04/23/20 14:01 119 H 19 94/64 L 04/23/20 14:00 130 H 27 H 04/23/20 13:50 117 H 20 64/56 L 04/23/20 13:45 120 H 20 60/40 L 04/23/20 13:44 106 H 20 62/43 L 94 04/23/20 13:30 36.2 C L 129 H 123 H 17 147/128 H 147/128 H 90 04/23/20 13:27 133 H 20 93 04/23/20 13:22 133 H 35 H 93 04/23/20 12:46 97/65 L 04/23/20 12:40 122 H 100 04/23/20 12:32 124 H 100 04/23/20 12:30 134 H 100/75 100 04/23/20 12:25 128 H 108/61 100 04/23/20 12:21 135 H 99 04/23/20 12:10 143 H 98 04/23/20 12:00 146 H 96 04/23/20 11:51 145 H 91 04/23/20 11:40 161 H 89 L 04/23/20 11:30 153 H 88 L 04/23/20 11:21 150 H 87 L 04/23/20 11:15 151 H 20 94 04/23/20 11:11 169 H 04/23/20 11:00 187 H 15 04/23/20 10:50 137 H 33 H 04/23/20 10:43 166 H 32 H 04/23/20 10:38 143 H 30 H 106/71 84 L Coding Level of Care Code Critical Care 1st 30-74 mins Diagnoses Admitted to intensive care unit Z78.9 Acute respiratory failure with hypoxia J96.01 Multifocal pneumonia J18.9 Sepsis A41.9; R65.20; J96.01 Acute respiratory failure type: with hypoxia Sepsis acute organ dysfunction status: with acute organ dysfunction Sepsis type: sepsis due to unspecified organism Severe sepsis acute organ dysfunction type: acute respiratory failure Severe sepsis shock status: without septic shock Elevated troponin R77.8 Time Spent (min) 45 (1) Sepsis Acute respiratory failure type: with hypoxia Sepsis acute organ dysfunction status: with acute organ dysfunction Sepsis type: sepsis due to unspecified organism Severe sepsis acute organ dysfunction type: acute respiratory failure Severe sepsis shock status: without septic shock Qualified Code(s): A41.9 - Sepsis, unspecified organism; R65.20 - Severe sepsis without septic shock; J96.01 - Acute respiratory failure with hypoxia
[2020-04-24] MEDS: fentaNYL citrate 100 MCG/2 ML VIAL IV PRN (06:38)
[2020-04-24] MEDS: MIDAZOLAM HCL 1 MG/ML 2ML VIAL IV PRN (06:39)
--- NOTE | 2020-04-24 08:50 | XRay Report ---
SINGLE VIEW CHEST CLINICAL HISTORY: Sepsis. FINDINGS: 2 AP, portable, upright chest radiographs are compared to chest x-ray and chest CT dated . The examination is degraded by portable technique and patient rotation. An endotracheal tub e is in place. A right subclavian central venous infusion port is unchanged in position. An enteric t ube has been pulled back. The tip projects over the distal esophagus. The cardiomediastinal silhouett e is unremarkable. There is multifocal airspace consolidation throughout both lungs, greatest at the right lung base. There is improved aeration of the right lower lung as compared to previous. No large pleural effusion or pneumothorax is seen. The skeletal structures are osteopenic. The bony thorax is grossly intact. IMPRESSION: 1. The enteric tube has been pulled back and now projects over the distal esophagus. This should be a dvanced. 2. There is improved aeration of the right lower lung as compared to previous. 3. Multifocal airspace consolidation is similar to previous, most confluent throughout the right lowe r lung. ACT 112: Negative or not required by law. Electronically signed by: Kendell Muir M.D. 04/24/2020 8:48 AM
--- NOTE | 2020-04-24 14:18 | Hospitalist Progress Note ---
Date of Service April 24, 2020 Assessment & Plan (1) Sepsis: Source: Suspected multifocal pneumonia +/- aspiration +/- Recent UTI sepsis (although not bacteremic on last admission urine grew Enterococcus faecalis sensitive to penicillin and vancomycin) SARS-CoV-2, RSV, influenza negative Lactate 3.1, repeat WNL NSS 1.4 L bolus given Continue broad-spectrum antibiotics with vancomycin and Zosyn Blood cx pending Urine cx gamma strep Very poor prognosis given patient's nutritional status, recent admission for sepsis - recommend palliative consult. (2) Acute respiratory failure with hypoxia: Intubated in the emergency room 04/23 Extubated 04/24 around 8:15a Management per ICU. (3) Multifocal pneumonia: Possible aspiration. Antibiotics as above. (4) Sacral decubitus ulcer, stage II: No surrounding cellulitis Routine wound care (5) Atrial fibrillation with rapid ventricular response: New diagnosis on last admission. 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 Extubated around 815a and no issues. Pt denies fever, SOB, chest pain, abd pain, n/v/c/d, LE pain or swelling. Review of Systems Review of Systems: Pertinent positives and negatives reviewed in HPI--all others negative Physical Exam Constitutional: WD/WN, vitals as above Eyes: normal visual emmanuel by confrontation and + anicteric sclerae Neck: normal visual inspection and trachea midline Respiratory: + labored breathing (minimal) Auscultation: + crackles; no wheezes Cardiovascular: Rate/Rhythm: regular rate and regular rhythm Gastrointestinal (Abdomen): Inspection/Auscultation: abdomen not distended Percussion/Palpation: abdomen soft; abdomen nontender Musculoskeletal: Head/Neck/Chest: normocephalic and head atraumatic negative for edema, peripheral pulses intact Skin: no rashes, warm and dry Neurologic: awake; not confused Speech / Cognition: normal speech Psychiatric: Orientation: oriented to person and cooperative Affect: + anxious affect Results & Data Results & Data ([facility]) Vital Signs (Past 12 Hours) Vital Signs Temp Pulse Resp BP Pulse Ox 04/24/20 12:00 140 H 04/24/20 11:33 37.3 C 04/24/20 10:05 118 H 123/82 94 04/24/20 09:05 123 H 113/66 90 04/24/20 08:05 123 H 93/69 L 98 04/24/20 08:00 38.1 C H 04/24/20 07:05 118 H 92/62 L 98 04/24/20 06:16 124 H 28 H 96 04/24/20 06:00 38.0 C H 124 H 98 04/24/20 05:05 127 H 107/72 96 04/24/20 05:00 124 H 97 04/24/20 04:05 123 H 25 H 98/74 L 100 04/24/20 04:00 122 H 92 04/24/20 03:05 122 H 82/63 L 96 04/24/20 03:00 120 H 99 PG Care Time/CCT Total # of Minutes Spent Total Time Spent with Patient: Total time spent is greater than 50% in coordination of care (as documented) at patient's floor/unit and/or counseling patient: Coding Level of Care Code 86779 Subseq Hosp Care Lvl 3 Diagnoses Sepsis A41.9 Acute respiratory failure with hypoxia J96.01 Multifocal pneumonia J18.9 Sacral decubitus ulcer, stage II L89.152 Atrial fibrillation with rapid ventricular response I48.91 Severe protein-calorie malnutrition E43 Non Hodgkin's lymphoma C85.90 DVT prophylaxis Z29.9
--- NOTE | 2020-04-24 14:52 | Critical Care Progress Note ---
Date of Service April 24, 2020 Assessment & Plan (1) Acute respiratory failure with hypoxia: Reason Critically Ill: Acute hypoxic respiratory failure with multifocal pneumonia PLAN: Neuro: Possible neurodegenerative disease Aspiration risk - reports patient would not want feeding tube -Longstanding history of gurgling and coughing with meals Resp: Gram-negative pneumonia -Continue Zosyn until speciation Mucoid impaction of right lower lobe -Status post bronchoscopy CV: Borderline hypotension -No escalation of care Fluids/Renal: Maintenance fluids Normosol at 80 ID: Gram-negative bacteria from bronchoscopy Gamma hemolytic strep species with greater than 100,000 CFU's -Continue IV Zosyn GI/Nutrition: N.p.o. -Speech evaluation Heme: Long-term anticoagulation -Given falls and possible transition to palliative care would only do DVT prophylaxis at this time DVT prophylaxis: Heparin Endocrine: ICU hyperglycemia protocol Vascular access: Peripheral IVs Code Status: DO NOT RESUSCITATE in event of cardiac arrest Disposition: Stable for downgrade out of ICU Physical therapy, Occupational Therapy, speech therapy, palliative care of all been consulted and added to the transfer order list. (2) Multifocal pneumonia: (3) Sepsis: (4) Sepsis: (5) Bacteria in urine: (6) Atrial fibrillation with RVR: Admission and Anticipated Discharge Date Admission Date: April 23, 2020 Subjective Able to follow simple commands Review of Systems Review of Systems: Unobtainable due to endotracheal tube Physical Exam Physical Exam: General: Alert. nontoxic. RASS +1 Skin: Warm, dry, Head: Atraumatic Ears, nose, mouth and throat: Airway obscured by endotracheal tube Cardiovascular: Normal peripheral perfusion Respiratory: no respiratory distress, tolerating CPAP pressure support 8 PEEP 5 Gastrointestinal: Non distended Musculoskeletal: No deformity Results & Data Results & Data ([facility]) Vital Signs (Past 12 Hours) Vital Signs Temp Pulse Resp BP Pulse Ox 04/24/20 12:00 140 H 04/24/20 11:33 37.3 C 04/24/20 10:05 118 H 123/82 94 04/24/20 09:05 123 H 113/66 90 04/24/20 08:05 123 H 93/69 L 98 04/24/20 08:00 38.1 C H 04/24/20 07:05 118 H 92/62 L 98 04/24/20 06:16 124 H 28 H 96 04/24/20 06:00 38.0 C H 124 H 98 04/24/20 05:05 127 H 107/72 96 04/24/20 05:00 124 H 97 04/24/20 04:05 123 H 25 H 98/74 L 100 04/24/20 04:00 122 H 92 04/24/20 03:05 122 H 82/63 L 96 04/24/20 03:00 120 H 99 Laboratory Results 04/24/20 04/24/20 Range/Units 04:04 04:04 WBC 15.01 H (4.8-10.8) K/uL RBC 3.72 L (4.7-6.1) M/uL Hgb 11.2 L (14.0-18.0) g/dL Hct 33.5 L (42-52) % MCV 90.1 (80-100) fL MCH 30.1 (25-34) pg MCHC 33.4 (32-36) g/dL RDW Std Deviation 51.5 H (36.4-46.3) fL RDW Coeff of Nallely 15.6 H (11.5-14.5) % Plt Count 396 (130-400) K/uL MPV 9.2 (7.4-10.4) fL Immature Gran % (Auto) 1.0 % Neut % (Auto) 91.3 % Lymph % (Auto) 2.9 % Lamar % (Auto) 4.8 % Eos % (Auto) 0.0 % Baso % (Auto) 0.0 % Neut # (Auto) 13.71 H (1.4-6.5) K/uL Lymph # (Auto) 0.43 L (1.2-3.4) K/uL Lamar # (Auto) 0.72 H (0.11-0.59) K/uL Eos # (Auto) 0.00 (0-0.5) K/uL Baso # (Auto) 0.00 (0-0.2) K/uL Immature Gran # (Auto) 0.15 H (0.00-0.02) K/uL Sodium 137 (136-145) mmol/L Potassium 4.5 (3.5-5.1) mmol/L Chloride 105 (98-107) mmol/L Carbon Dioxide 23 (21-32) mmol/L Anion Gap 9.0 (3-11) BUN 28 H (7-18) mg/dl Creatinine 0.96 (0.6-1.4) mg/dl Est Cr Clr Drug Dosing 73.3 ml/min Est GFR ( Amer) 91.8 Est GFR (Non-Af Amer) 79.2 BUN/Creatinine Ratio 28.9 H (10-20) Glucose 133 H (70-99) mg/dl Calcium 9.0 (8.5-10.1) mg/dl Phosphorus 4.5 (2.5-4.9) mg/dl Magnesium 1.9 (1.8-2.4) mg/dl Troponin I 0.716 H* (0-0.045) ng/ml Diagnostic Findings I reviewed the chest x-ray, multifocal pneumonia with possible fluid in the right fissure Coding Level of Care Code 00575 Subseq Hosp Care Lvl 3 Diagnoses Acute respiratory failure with hypoxia J96.01 Multifocal pneumonia J18.9 Sepsis A41.9; R65.20; J96.01 Acute respiratory failure type: with hypoxia Sepsis acute organ dysfunction status: with acute organ dysfunction Sepsis type: sepsis due to unspecified organism Severe sepsis acute organ dysfunction type: acute respiratory failure Severe sepsis shock status: without septic shock Sepsis A41.9 Bacteria in urine R82.71 Atrial fibrillation with RVR I48.91 (1) Sepsis Acute respiratory failure type: with hypoxia Sepsis acute organ dysfunction status: with acute organ dysfunction Sepsis type: sepsis due to unspecified organism Severe sepsis acute organ dysfunction type: acute respiratory failure Severe sepsis shock status: without septic shock Qualified Code(s): A41.9 - Sepsis, unspecified organism; R65.20 - Severe sepsis without septic shock; J96.01 - Acute respiratory failure with hypoxia
[2020-04-24] MEDS ORDERED: METOPROLOL TARTRATE 1 MG/ML VIAL IV STA (19:44)
[2020-04-24] MEDS ORDERED: METOPROLOL TARTRATE 1 MG/ML VIAL IV PRN (19:45)
[2020-04-24] MEDS: HEPARIN SOD 5,000 UNIT/0.5 ML VIAL SQ SCH (20:30)
[2020-04-25] MEDS: PIPERACILLIN/TAZOBACTAM 3.375 GM in DEXTROSE 5% 100 ML IV SCH ×3 (02:14→18:19)
[2020-04-25] MEDS: NORMOSOL-R 1,000 ML IV SCH ×2 (03:57→18:18)
[2020-04-25] MEDS: HEPARIN SOD 5,000 UNIT/0.5 ML VIAL SQ SCH ×3 (05:17→21:25)
[2020-04-25 08:06] LABS: Hematocrit (blood only) 24.7 % (42-52); Hemoglobin 8.4 g/dL (14.0-18.0); Immature Granulocytes # (auto) 0.08 K/uL (0.00-0.02); Immature Granulocytes % (auto) 0.7 %; Lymphocytes # (auto) 0.71 K/uL (1.2-3.4); Lymphocytes % (auto) 6.5 %; Mean Corpuscular Hemoglobin 30.9 pg (25-34); Mean Corpuscular Volume 90.8 fL (80-100); Mean Platelet Volume 8.7 fL (7.4-10.4); Monocytes # (auto) 0.29 K/uL (0.11-0.59); Monocytes % (auto) 2.7 %; Neutrophils # (auto) 9.77 K/uL (1.4-6.5); Neutrophils % (auto) 90.1 %; Platelet Count 327 K/uL (130-400); RDW Coefficient of Variation 15.9 % (11.5-14.5); Red Blood Count 2.72 M/uL (4.7-6.1); White Blood Count 10.85 K/uL (4.8-10.8)
[2020-04-25 08:37] LABS: BUN Creatinine Ratio 39.9 (10-20); Calcium 8.8 mg/dl (8.5-10.1); Creatinine Clr Calc Pharmacy 80.4 ml/min; Est GFR (African American) 100.6; Est GFR (Non-African American) 86.8; Magnesium 2.1 mg/dl (1.8-2.4); Phosphorus 2.3 mg/dl (2.5-4.9); Potassium 3.2 mmol/L (3.5-5.1)
[2020-04-25] MEDS ORDERED: POTASSIUM PHOS 3 MMOL/1 ML INFUSION IV STA (09:25)
[2020-04-25] MEDS ORDERED: POTASSIUM PHOSPHATE 15 MMOL in SODIUM CHLORIDE 0.9% 250 ML IV ONE (10:00)
--- NOTE | 2020-04-25 12:14 | Hospitalist Progress Note ---
Date of Service April 25, 2020 Assessment & Plan (1) Sepsis: Source: Suspected multifocal pneumonia +/- aspiration +/- Recent UTI sepsis (although not bacteremic on last admission urine grew Enterococcus faecalis sensitive to penicillin and vancomycin) SARS-CoV-2, RSV, influenza negative Lactate 3.1, repeat WNL Continue broad-spectrum antibiotics with vancomycin and Zosyn Recent UTI sepsis Urine cx noted for gamma strep, resistance to tetracyclines Blood cx pending Sputum cx is pansensitive ST eval today, failed on all attempts, including own secretions. Advised that pt is not even a candidate for pleasure feedings as any attempt to swallow is painful for him Very poor prognosis given patient's nutritional status, recent admission for sepsis - palliative c/s pending (2) Acute respiratory failure with hypoxia: Intubated in the emergency room 04/23 Extubated 04/24 around 8:15a Management per ICU. (3) Multifocal pneumonia: Possible aspiration. Antibiotics as above. (4) Sacral decubitus ulcer, stage II: No surrounding cellulitis Routine wound care (5) Atrial fibrillation with rapid ventricular response: New diagnosis on last admission. Elevated rate on admission but appears to be sinus tachycardia. EKG - sinus tachycardia. (6) Severe protein-calorie malnutrition: Consult dietary (7) Non Hodgkin's lymphoma: Reportedly in remission (8) DVT prophylaxis: Heparin for DVT proph (9) Hypokalemia: with hypoPhos Replace and monitor Admission and Anticipated Discharge Date Admission Date: April 23, 2020 Review of Systems Review of Systems: Pertinent positives and negatives reviewed in HPI--all others negative Physical Exam Constitutional: WD/WN, vitals as above Eyes: normal visual emmanuel by confrontation and + anicteric sclerae Neck: normal visual inspection and trachea midline Respiratory: + labored breathing (minimal) Auscultation: + crackles; no wheezes Cardiovascular: Rate/Rhythm: regular rate and regular rhythm Gastrointestinal (Abdomen): Inspection/Auscultation: abdomen not distended Percussion/Palpation: abdomen soft; abdomen nontender Musculoskeletal: Head/Neck/Chest: normocephalic and head atraumatic Skin: no rashes, warm and dry Neurologic: awake; not confused Speech / Cognition: + abnormal speech Psychiatric: Orientation: oriented to person and cooperative Results & Data Results & Data ([facility]) Vital Signs (Past 12 Hours) Vital Signs Temp Pulse Pulse Resp BP BP Pulse Ox 04/25/20 11:52 36.5 C 93 H 19 104/64 95 04/25/20 08:40 36.6 C 90 19 112/73 90 04/25/20 08:13 115 H 04/25/20 03:17 36.7 C 85 20 111/71 93 PG Care Time/CCT Total # of Minutes Spent Total Time Spent with Patient: Total time spent is greater than 50% in coordination of care (as documented) at patient's floor/unit and/or counseling patient: Coding Level of Care Code 46454 Subseq Hosp Care Lvl 3 Diagnoses Sepsis A41.9 Acute respiratory failure with hypoxia J96.01 Multifocal pneumonia J18.9 Sacral decubitus ulcer, stage II L89.152 Atrial fibrillation with rapid ventricular response I48.91 Severe protein-calorie malnutrition E43 Non Hodgkin's lymphoma C85.90 DVT prophylaxis Z29.9 Hypokalemia E87.6
[2020-04-26] MEDS: PIPERACILLIN/TAZOBACTAM 3.375 GM in DEXTROSE 5% 100 ML IV SCH ×3 (03:25→19:30)
[2020-04-26] MEDS: HEPARIN SOD 5,000 UNIT/0.5 ML VIAL SQ SCH ×2 (06:45→13:34)
[2020-04-26 07:00] LABS: Hematocrit (blood only) 24.9 % (42-52); Hemoglobin 8.2 g/dL (14.0-18.0); Immature Granulocytes # (auto) 0.09 K/uL (0.00-0.02); Immature Granulocytes % (auto) 0.8 %; Lymphocytes # (auto) 0.22 K/uL (1.2-3.4); Mean Corpuscular Hemoglobin 29.8 pg (25-34); Mean Corpuscular Hgb Conc 32.9 g/dL (32-36); Mean Corpuscular Volume 90.5 fL (80-100); Monocytes # (auto) 0.43 K/uL (0.11-0.59); Neutrophils % (auto) 93.2 %; Platelet Count 312 K/uL (130-400); RDW Standard Deviation 52.8 fL (36.4-46.3); Red Blood Count 2.75 M/uL (4.7-6.1); White Blood Count 10.74 K/uL (4.8-10.8)
[2020-04-26 07:28] LABS: BUN Creatinine Ratio 47.9 (10-20); Calcium 8.9 mg/dl (8.5-10.1); Creatinine Clr Calc Pharmacy 118.6 ml/min; Est GFR (African American) 118.1; Est GFR (Non-African American) 101.9
[2020-04-26] MEDS: NORMOSOL-R 1,000 ML IV SCH ×2 (07:31→21:50)
[2020-04-26 07:34] LABS: Phosphorus 1.6 mg/dl (2.5-4.9)
--- NOTE | 2020-04-26 10:45 | Palliative Care Consultation ---
Date of Consultation April 26, 2020 Assessment & Plan (1) Palliative care encounter: This is a 69 year old male who presented to the [facility] from home with hypoxia. He was recently admitted for urosepsis from March 18 and was discharged to [facility] for rehabilitation. He had been at home for 6 days, prior to his decline. Additional PMH includes: neurodegenerative disease, HTN, HLD, Non-Hodgkins Lymphoma, GERD, and a pancreatic mass. Upon admission, he was hypoxic, tachycardia, tachypneic and had a GCS of 6. He was intubated in the emergency room and transferred to the ICU where he was diagnosed with acute hypoxic respiratory failure with multifocal pneumonia. He was able to be extubated on April 24. Palliative Care was consulted to discuss overall goals of care. I met with the patient in room 384. He was oriented to himself only during our conversation. I reached out to his , Claritza [phone], on the phone and talked at length regarding goals of care. She struggled over the weekend regarding his nutritional status, but knows that he would not want any aggressive measures taken to prolong his life. Claritza's overarching goal for Ayo is to ensure he is comfortable. We discussed hospice at length and she was agreeable to a referral being placed. She does have multiple pieces of equipment already in their home. Their daughter is coming to help with her father make this transition and she is due to arrive on . In discussion with the hospitalist, the patient had an acute hypoxic episode later in the day today, requiring him to be placed on BiPAP. Claritza was made aware and her daughter is working to expedite her travel plans. Case management placed a referral to [facility] as patient was active with their home health. A POLST form would be helpful prior to discharge. Palliative will continue to follow, assess for stable transfer and continue to offer support to the patients family. (2) Acute respiratory failure with hypoxia: (3) Multifocal pneumonia: (4) Sepsis: History of Present Illness Reason for Consultation: Goals of Care Requesting Physician: Dr. Barlow Attending Physician: Afshin Jose MD History of Present Illness This is a 69 year old male who presented to the [facility] from home with hypoxia. He was recently admitted for urosepsis from March 18 and was discharged to [facility] for rehabilitation. He had been at home for 6 days, prior to his decline. Additional PMH includes: neurodegenerative disease, HTN, HLD, Non-Hodgkins Lymphoma, GERD, and a pancreatic mass. Upon admission, he was hypoxic, tachycardia, tachypneic and had a GCS of 6. He was intubated in the emergency room and transferred to the ICU where he was diagnosed with acute hypoxic respiratory failure with multifocal pneumonia. He was able to be extubated on April 24. Palliative Care was consulted to discuss overall goals of care. Please see A/P for further details. Thank you kindly for involving our service with this individual. Allergies Allergy/AdvReac Type Severity Reaction Status Date / Time ibuprofen Allergy Severe ANAPHYLAXIS Verified 04/23/20 12:28 Home Medications Medication Instructions Recorded Confirmed Type ferrous sulfate 325 mg (65 mg 325 mg PO QAM 02/02/20 04/23/20 History iron) tablet Wheelchair (Manual or Powered) #1 ea 02/10/20 04/16/20 Rx cholecalciferol (vitamin D3) 50,000 unit PO WK 03/18/20 04/23/20 History gabapentin 400 mg PO HS 03/18/20 04/23/20 History acetaminophen 325 mg tablet 650 mg PO QID PRN tab 04/16/20 04/23/20 History apixaban 5 mg tablet 5 mg PO BID 04/16/20 04/23/20 History calcium carbonate 200 mg calcium 200 mg PO QID PRN 04/16/20 04/23/20 History (500 mg) chewable tablet digoxin 125 mcg (0.125 mg) tablet 125 mcg PO HS 04/16/20 04/23/20 History metoprolol succinate [Kapspargo 200 mg PO QAM 04/23/20 04/23/20 History Sprinkle] Patient History Medical History (Updated 04/26/20 @ 18:25 by Marga Cox PA-C) Acid reflux Cervical spine disease Gastric ulcer History of ASCVD HTN (hypertension) Hyperlipemia Non Hodgkin's lymphoma Palliative care encounter Pancreatic mass Vitamin D deficiency Surgical History History of esophagogastroduodenoscopy (EGD) History of hip surgery PINNING RIGHT HIP-AGE 15 Port-A-Cath in place (06/16/19) Access port placement. Dr. Lyn 06/16/19 Family History Father Myocardial infarction Heart disease Brother Cancer Hypertension Other Family history non-contributory Social History Smoking Status: Never smoker Second Hand Exposure: No; Do You Dip or Chew Tobacco: No; Tobacco Cessation Education Requested by Patient: No Hx Alcohol Use: Yes Alcohol type: beer Hx Substance Use: No Preferred Language: German Communication Ability: Unable Communication Ability Comment: UNRESPONSIVE/INTUBATED Managed Care Coordinator Required: No Beliefs That Will Affect Care: None marital status: Current Living Situation: Spouse current occupational status: retired Other Information That Helps Us Care for You: No Feels Safe at Home: Yes Safety Concerns: Feels Safe At This Time Assistive Devices: Denture - Upper, Denture - Lower and Oxygen - Continuous Review of Systems Review of Systems: Unobtainable due to cognitive status Physical Exam Constitutional: + acute distress, + ill appearing and + frail appearing Respiratory: Auscultation: + diminished lung sounds and + rhonchi Cardiovascular: Rate/Rhythm: + tachycardic Heart Sounds: normal S1 and normal S2 Extremities: normal capillary refill and + edema Gastrointestinal (Abdomen): normal bowel sounds, soft, nontender, no hepatosplenomegaly Skin: no rashes, warm and dry Psychiatric: Orientation: alert and oriented to person Insight: + impaired insight Judgement: + impaired judgement Results & Data ([facility]) Vital Signs (Past 12 Hours) Vital Signs Temp Pulse Resp BP BP Pulse Ox 04/26/20 07:19 36.4 C L 86 20 137/86 95 04/26/20 05:00 90 04/26/20 02:59 90 04/26/20 02:15 88 L 04/26/20 01:45 90 04/26/20 00:23 92 04/25/20 23:35 36.5 C 96 H 18 135/83 92 PG Care Time/CCT Total # of Minutes Spent Total Time Spent with Patient: Total time spent is greater than 50% in coordination of care (as documented) at patient's floor/unit and/or counseling patient: 100 Coding Level of Care Code 16099 Inpt Consult Level 4 Diagnoses Palliative care encounter Z51.5 Acute respiratory failure with hypoxia J96.01 Multifocal pneumonia J18.9 Sepsis A41.9 Time Spent (min) 100 Time Spent Midlevel Total time spent 100 minutes with > 50% of that time spent assessing the patient , discussing goals of care with family and collaborating with IDT.
--- NOTE | 2020-04-26 10:48 | Hospitalist Progress Note ---
Date of Service April 26, 2020 Assessment & Plan (1) Sepsis: Source: Suspected multifocal pneumonia +/- aspiration. Failure of speech evaluation * +/- Recent UTI sepsis * SARS-CoV-2, RSV, influenza negative * Lactate 3.1, repeat WNL * Continue broad-spectrum antibiotics with Zosyn * --> (only received Vancomycin on admission and will add back on today given continued resp failure/hypoxia and recent intubation and worsening CXR 04/26. Also will give lasix x1 IV and hold IVF for now) * Bronch 04/23 with cultures growing Klebsiella, pansensitive * Blood cx NGTD 48 hours * ST eval 04/25, failed on all attempts, including own secretions. Advised that pt is not even a candidate for pleasure feedings as any attempt to swallow is painful for him. Will add Mucomyst inhaler to see if any help to decrease secretion * Very poor prognosis given patient's nutritional status, recent admission for sepsis * palliative c/s pending * plans for home with hospice -- after discussion with worsening respiratory status today/repeated aspiration on possible secretions will attempt to get pt home with services delmy. daughter to be in town Recent UTI sepsis- Urine cx noted for gamma strep, resistance to tetracyclines. * --> Urine from this admission with Enterococcus faecalis (should be covered by Zosyn) (2) Acute respiratory failure with hypoxia: * -- was previously being seen by speech therapist GAMING MANAGER and had coarse BS. Presented toxic in appearance and decision was made to intubate * Intubated in the emergency room 04/23 * Extubated 04/24 around 8:15a * Had been on room air this morning, 95% but then hypoxic to 78% and placed on oxymask with transition to BiPAP 04/18 this afternoon of 04/26 with improvement of sats to 91% and then on repeat checks this afternoon with improvement to 94 and 98% tonight * Added Mucomyst for secretions. consider atropine as patient on GAMING MANAGER at direction of PCP per H&P HPI * CXR with b/l effusions and mid-lower opacities b/l * Will hold IVF for today given CXR/effusions and continue to monitor * Continue abx as above (3) Multifocal pneumonia: * Likely aspiration. * Antibiotics as above. (4) Sacral decubitus ulcer, stage II: * No surrounding cellulitis * Routine wound care (5) Atrial fibrillation with rapid ventricular response: * New diagnosis on last admission. * Elevated rate on admission but appears to be sinus tachycardia. * EKG - sinus tachycardia. (6) Severe protein-calorie malnutrition: * Consult dietary (7) Non Hodgkin's lymphoma: * Reportedly in remission (8) Hypokalemia: * with hypoPhos and was given 15mmol IV on 04/25 for K 3.2 and phos 2.3 * Phos 1.6 today and K 3.0 -- ordered 21mmol IV Kphos and 1 bag K rider * Monitor labs in am (9) Hypophosphatemia: * See above under hypoK (10) DVT prophylaxis: * Heparin for DVT proph Admission and Anticipated Discharge Date Admission Date: April 23, 2020 Subjective Patient evaluated this morning. Appears comfortable, resting in bed. Not in any acute distress. Denies pain or shortness of breath despite being 90% on RA this morning. When discussed about possible need for placement of feeding tube given inability to take oral/aspiration and patient shook head and stated "no" when asked if he would want these interventions. This afternoon, alerted by nursing for hypoxia with O2 sat 78% not responsive to Oxymask and was placed on BiPAP 04/18 with sat 91%. Patient evaluated and confirmed he was having shortness of breath. Repositioned BiPAP mask for comfort with O2 sat improved to 94%. Rechecked on patient this evening and O2 sat improved to 98%. CXR with increasing bilateral effusions and b/l mid-lower lung opacities. Discussed changes with Claritza this evening via telephone and she is hopeful to possibly get patient home on and daughter is making arrangements to leave tomorrow in hopes of arriving home early to get patient home with hospice. Discussed improvement of O2 saturations with BiPAP and we will continue to monitor and try to expedite d/c on Hospice as able and will update in AM. Review of Systems Review of Systems: All systems reviewed & are unremarkable except as noted in HPI & below Physical Exam Constitutional: well developed, + ill appearing and + cachectic; no acute distress Eyes: normal visual emmanuel by confrontation and + anicteric sclerae Neck: normal visual inspection and trachea midline Respiratory: + labored breathing (minimal (increased this afternoon and improved after BiPAP)) and + tachypneic Auscultation: + diminished lung sounds (bilateral bases), + crackles and + rhonchi (throughout); no wheezes Cardiovascular: Rate/Rhythm: regular rate and regular rhythm Gastrointestinal (Abdomen): Inspection/Auscultation: abdomen not distended Percussion/Palpation: abdomen soft; abdomen nontender Musculoskeletal: Head/Neck/Chest: normocephalic and head atraumatic Skin: no rashes, warm and dry Neurologic: awake; not confused Speech / Cognition: + abnormal speech Psychiatric: Orientation: oriented to person and cooperative Results & Data Results & Data ([facility]) Vital Signs (Past 12 Hours) Vital Signs Temp Pulse Resp BP BP Pulse Ox 04/26/20 07:19 36.4 C L 86 20 137/86 95 04/26/20 05:00 90 04/26/20 02:59 90 04/26/20 02:15 88 L 04/26/20 01:45 90 04/26/20 00:23 92 04/25/20 23:35 36.5 C 96 H 18 135/83 92 Laboratory Results 04/26/20 04/26/20 Range/Units 06:25 06:25 WBC 10.74 (4.8-10.8) K/uL RBC 2.75 L (4.7-6.1) M/uL Hgb 8.2 L (14.0-18.0) g/dL Hct 24.9 L (42-52) % MCV 90.5 (80-100) fL MCH 29.8 (25-34) pg MCHC 32.9 (32-36) g/dL RDW Std Deviation 52.8 H (36.4-46.3) fL RDW Coeff of Nallely 16.0 H (11.5-14.5) % Plt Count 312 (130-400) K/uL MPV 9.0 (7.4-10.4) fL Immature Gran % (Auto) 0.8 % Neut % (Auto) 93.2 % Lymph % (Auto) 2.0 % [place] % (Auto) 4.0 % Eos % (Auto) 0.0 % Baso % (Auto) 0.0 % Neut # (Auto) 10.00 H (1.4-6.5) K/uL Lymph # (Auto) 0.22 L (1.2-3.4) K/uL [place] # (Auto) 0.43 (0.11-0.59) K/uL Eos # (Auto) 0.00 (0-0.5) K/uL Baso # (Auto) 0.00 (0-0.2) K/uL Immature Gran # (Auto) 0.09 H (0.00-0.02) K/uL Sodium 146 H (136-145) mmol/L Potassium 3.0 L (3.5-5.1) mmol/L Chloride 110 H (98-107) mmol/L Carbon Dioxide 29 (21-32) mmol/L Anion Gap 7.0 (3-11) BUN 28 H (7-18) mg/dl Creatinine 0.59 L (0.6-1.4) mg/dl Est Cr Clr Drug Dosing 118.6 ml/min Est GFR ( Amer) 118.1 Est GFR (Non-Af Amer) 101.9 BUN/Creatinine Ratio 47.9 H (10-20) Glucose 110 H (70-99) mg/dl Calcium 8.9 (8.5-10.1) mg/dl Phosphorus 1.6 L (2.5-4.9) mg/dl Magnesium 2.0 (1.8-2.4) mg/dl PG Care Time/CCT Total # of Minutes Spent Total Time Spent with Patient: Total time spent is greater than 50% in c oordination of care (as documented) at patient's floor/unit and/or counseling patient: Coding Level of Care Code 66724 Subseq Hosp Care Lvl 3 Diagnoses Sepsis A41.9 Acute respiratory failure with hypoxia J96.01 Multifocal pneumonia J18.9 Sacral decubitus ulcer, stage II L89.152 Atrial fibrillation with rapid ventricular response I48.91 Severe protein-calorie malnutrition E43 Non Hodgkin's lymphoma C85.90 Hypokalemia E87.6 Hypophosphatemia E83.39 DVT prophylaxis Z29.9
[2020-04-26] MEDS ORDERED: POTASSIUM PHOS 3 MMOL/1 ML INFUSION IV STA (11:45)
[2020-04-26] MEDS ORDERED: POTASSIUM PHOSPHATE 24 MMOL in SODIUM CHLORIDE 0.9% 500 ML IV ONE (12:00)
[2020-04-26] MEDS: POTASSIUM CHLORIDE / WTR 10 MEQ/100 ML PLCT IV SCH ×3 (12:22→14:46)
--- NOTE | 2020-04-26 17:50 | XRay Report ---
XR chest 1V portable CLINICAL HISTORY: hypoxia, shortness of breath COMPARISON STUDY: 04/24/2020 FINDINGS: There is been interval removal of the endotracheal tube and nasogastric tubes. There is no change in position of the right-sided A-Port catheter. There are increasing bilateral pleural effusio ns. There are associated bilateral lower lobe airspace opacities.[ IMPRESSION: 1. Increasing bilateral pleural effusions 2. Bilateral mid and lower lung zone airspace opacities 3. Interval removal of the endotracheal tube and nasogastric tube. ACT 112: Negative or not required by law. Electronically signed by: Xavier Zaldivar M.D. 04/26/2020 5:49 PM
[2020-04-26] MEDS ORDERED: FUROSEMIDE 20 MG in SYRINGE 0 ML IV ONE (18:15)
[2020-04-26] MEDS ORDERED: VANCOMYCIN CONSULT ACTIVE PRN ×2 (18:20)
[2020-04-26] MEDS ORDERED: VANCOMYCIN HCL 1,000 MG in SODIUM CHLORIDE 0.9% 250 ML IV SCH (18:30)
[2020-04-26] MEDS ORDERED: VANCOMYCIN HCL 1,750 MG in SODIUM CHLORIDE 0.9% 500 ML IV ONE (19:00)
[2020-04-26] MEDS: ALBUTEROL 0.083% NEBU SOLN 3 ML VIAL NEB PRN (20:12)
[2020-04-26] MEDS: ACETYLCYSTEINE 10% INHAL SOLN 4 ML **DISPENSED BY RESP. INH SCH (20:12)
--- NOTE | 2020-04-26 21:29 | Communication Note ---
Date of Service: April 26, 2020 Notified by nursing for concerns of dark stool earlier. He is on iron at home. Does have a hx of gastric ulcer and Hgb which has been downtrending. Will hold heparin and give GI protection with Pepcid 20mg IV BID. No changes in hemodynamics otherwise. Resident Activity Tracking Resident Involvement: Resident Care Provided Care Provided: Adult Hospital Medicine
[2020-04-26] MEDS: FAMOTIDINE 20 MG in SYRINGE 3 ML IV SCH (21:50)
[2020-04-27] MEDS: PIPERACILLIN/TAZOBACTAM 3.375 GM in DEXTROSE 5% 100 ML IV SCH ×3 (01:33→18:45)
[2020-04-27] MEDS: HEPARIN 100 UNIT/ML 5ML FLUSH FLUSH PRN ×4 (01:40→16:31)
[2020-04-27] MEDS: VANCOMYCIN HCL 1,000 MG in SODIUM CHLORIDE 0.9% 250 ML IV SCH ×3 (03:47→20:51)
[2020-04-27] MEDS: ALBUTEROL 0.083% NEBU SOLN 3 ML VIAL NEB PRN ×3 (07:31→19:35)
[2020-04-27] MEDS: ACETYLCYSTEINE 10% INHAL SOLN 4 ML **DISPENSED BY RESP. INH SCH ×3 (07:36→19:35)
[2020-04-27 07:52] LABS: Hematocrit (blood only) 23.7 % (42-52); Hemoglobin 7.7 g/dL (14.0-18.0); Immature Granulocytes # (auto) 0.08 K/uL (0.00-0.02); Immature Granulocytes % (auto) 0.6 %; Lymphocytes # (auto) 0.43 K/uL (1.2-3.4); Mean Corpuscular Hemoglobin 29.5 pg (25-34); Mean Corpuscular Hgb Conc 32.5 g/dL (32-36); Mean Corpuscular Volume 90.8 fL (80-100); Mean Platelet Volume 8.7 fL (7.4-10.4); Monocytes # (auto) 0.28 K/uL (0.11-0.59); Neutrophils # (auto) 13.31 K/uL (1.4-6.5); Neutrophils % (auto) 94.4 %; Platelet Count 289 K/uL (130-400); RDW Coefficient of Variation 16.3 % (11.5-14.5); RDW Standard Deviation 53.9 fL (36.4-46.3); Red Blood Count 2.61 M/uL (4.7-6.1)
[2020-04-27 08:07] LABS: INR 1.3 (0.9-1.1); Partial Thromboplastin Ratio 1.5; Partial Thromboplastin Time 41.7 Seconds (21.0-31.0); Prothrombin Time 13.4 Seconds (9.0-12.0)
[2020-04-27 08:12] LABS: Albumin Level 1.7 gm/dl (3.4-5.0); BUN Creatinine Ratio 38.5 (10-20); Calcium 8.5 mg/dl (8.5-10.1); Creatinine Clr Calc Pharmacy 129.6 ml/min; Est GFR (African American) 122.4; Est GFR (Non-African American) 105.6; Magnesium 1.8 mg/dl (1.8-2.4)
[2020-04-27 08:14] LABS: Albumin Globulin Ratio 0.5 (0.9-2); Bilirubin,Total 0.8 mg/dl (0.2-1); Globulin 3.2 gm/dl (2.5-4.0); Total Protein 4.9 gm/dl (6.4-8.2)
[2020-04-27 08:15] LABS: RBC Morphology Unremarkable
[2020-04-27] MEDS: FAMOTIDINE 20 MG in SYRINGE 3 ML IV SCH ×2 (09:47→20:28)
[2020-04-27] MEDS ORDERED: SODIUM CHLOR 0.45% + 20MEQ KCL 20 MEQ/1,000 ML BAG IV SCH (10:15)
--- NOTE | 2020-04-27 10:34 | XRay Report ---
SINGLE VIEW CHEST CLINICAL HISTORY: Follow-up pneumonia FINDINGS: 2 AP, portable, upright chest radiographs are compared to chest x-ray and chest CT dated and correlated with chest CT dated 04/23/2020. The examination is degraded by portable techn ique and patient rotation. A right subclavian central venous infusion port is unchanged in position. The cardiomediastinal silhouette is unremarkable. There is multifocal airspace consolidation through out both lungs, greatest at the right lung base. There is atelectasis at the right lung base with luis vation of the right hemidiaphragm. Question small pleural effusions. No pneumothorax is seen. The ske letal structures are osteopenic. The bony thorax is grossly intact. IMPRESSION: 1. Multifocal airspace consolidation is unchanged from yesterday. 2. There is atelectasis at the right lung base with elevation of the right hemidiaphragm. 3. Suspect small pleural effusions. ACT 112: Negative or not required by law. Electronically signed by: Kendell Muir M.D. 04/27/2020 10:33 AM
[2020-04-27] MEDS ORDERED: MoRPHine SULFATE 2 MG/ML CARP IV STA (11:39)
[2020-04-27] MEDS: POTASSIUM CHLORIDE / WTR 10 MEQ/100 ML PLCT IV SCH ×3 (12:11→15:10)
--- NOTE | 2020-04-27 14:08 | Pharmacy Report ---
Pharmacy Abx Dose Short Note - Date of Service April 27, 2020 - Assessment & Plan Assessment 69 year old M receiving vancomycin/Zosyn for treatment of worsening pulmonary function Day # 1 of antimicrobial therapy. Plan Vancomycin * vancomycin 1750 mg IV x 1 (24 mg/kg) given then started vancomycin 1 gm IV q8 hours (14 mg/kg) * population pharmacokinetics suggest half-life of 6.7 hr with elimination constant of 0.1 hr-1 * trough around 2000 dose tonight Pharmacy will continue to follow and will adjust dose/frequency as necessary. Thank you.
[2020-04-27] MEDS ORDERED: POTASSIUM CHLORIDE 10 MEQ in D5W AND 1/2NSS 1,000 ML IV SCH (14:45)
[2020-04-27] MEDS ORDERED: FUROSEMIDE 20 MG in SYRINGE 0 ML IV ONE (15:30)
--- NOTE | 2020-04-27 15:55 | Hospitalist Progress Note ---
Date of Service April 27, 2020 Assessment & Plan (1) Sepsis: Suspected multifocal pneumonia d/t aspiration. Failure of speech evaluation * +/- Recent UTI sepsis * SARS-CoV-2, RSV, influenza negative * Lactate 3.1, repeat WNL * Continue broad-spectrum antibiotics with Zosyn * --> (only received Vancomycin on admission and will add back on today given continued resp failure/hypoxia and recent intubation and worsening CXR 04/26. Also will give lasix x1 IV 04/26 and hold IVF for now) * Bronch 04/23 with cultures growing Klebsiella, pansensitive * Blood cx NGTD 48 hours * ST eval 04/25, failed on all attempts, including own secretions. Advised that pt is not even a candidate for pleasure feedings as any attempt to swallow is painful for him. Will add Mucomyst inhaler to see if any help to decrease secretion * Very poor prognosis given patient's nutritional status, recent admission for sepsis * palliative consult appreciated * plans for home with hospice -- after discussion with worsening respiratory status today/repeated aspiration on possible secretions will attempt to get pt home with services delmy. daughter to be in town tomorrow * --> CM assisting and plans for d/c tomorrow AM if weather permitting and transportation set up. Recent UTI sepsis- Urine cx noted for gamma strep, resistance to tetracyclines. * --> Urine from this admission with Enterococcus faecalis (should be covered by Zosyn) Anemia --h/h dropped 7.7 hx gastric ulcer d/c Heparin SQ Started pepcid 20mg IV BID repeat cbc with hgb 7.9 Will order additional 10mg IV lasix tonight (04/27) in addition to the 10mg this afternoon and continue to monitor CBC in AM (2) Acute respiratory failure with hypoxia: * -- was previously being seen by speech therapist ROAD CONSULTANT and had coarse BS. Presented toxic in appearance and decision was made to intubate * Intubated in the emergency room 04/23 * Extubated 04/24 around 8:15a * Had been on room air this morning, 95% but then hypoxic to 78% and placed on oxymask with transition to BiPAP 04/18 this afternoon of 04/26 with improvement of sats to 91% and then on repeat checks this afternoon with improvement to 94 and 98% tonight 04/26 * Added Mucomyst for secretions. consider atropine as patient on ROAD CONSULTANT at direction of PCP per H&P HPI * CXR with b/l effusions and mid-lower opacities b/l * --> Able to maintain 94% on 4L this morning but did drop to 80s afternoon and placed on 6L with sats maintained * Additional lasix 20mg IV today x 1 * Will repeat CXR in AM * Continue abx as above (3) Multifocal pneumonia: * Likely aspiration. * Antibiotics as above. (4) Sacral decubitus ulcer, stage II: * No surrounding cellulitis * Routine wound care (5) Atrial fibrillation with rapid ventricular response: * New diagnosis on last admission. * Elevated rate on admission but appears to be sinus tachycardia. * EKG - sinus tachycardia. (6) Severe protein-calorie malnutrition: * Consult dietary (7) Non Hodgkin's lymphoma: * Reportedly in remission (8) Hypokalemia: * with hypoPhos and was given 15mmol IV on 04/25 for K 3.2 and phos 2.3 * Phos 1.6 today and K 3.0 -- ordered 21mmol IV Kphos and 1 bag K rider * K 3.0, Phos 2.0 -- additional replacement ordered 15mmol Kphos and 30meq IV KCL * BMP in AM (9) Hypophosphatemia: * See above under hypoK (10) DVT prophylaxis: * Heparin for DVT proph -- d/c as above Dispo: hopeful for home with hospice in AM Admission and Anticipated Discharge Date Admission Date: April 23, 2020 Subjective Patient evaluated this morning. Took Oxymask off due to comfort. Discussed if we want to get home with hospice with /family, will need to place on O2 to maintain saturations. Agreeable to try nasal cannula and was 94% on 4L. Does admit to some shortness of breath. This afternoon with sats dropping to 80s and needed 6L. Given 0.5mg morphine for work of breathing. Will order 20mg IV lasix now. Repeat CBC and if hgb still low/continues to drop will transfuse 1u PRBC. Heparin was d/c last evening for darker stools with pt with hx gastric ulcer and was placed on Pepcid BID. Discussed with CM and on phone today, plans to get discharged tomorrow AM if weather permitted with hospice in place. Review of Systems Review of Systems: All systems reviewed & are unremarkable except as noted in HPI & below Physical Exam Constitutional: well developed, + ill appearing and + cachectic; no acute distress Eyes: + anicteric sclerae; normal pupil size ENMT: Mouth: + dry oral mucous membranes Neck: normal visual inspection and trachea midline Respiratory: + labored breathing (minimal) and + tachypneic Auscultation: + diminished lung sounds (bilateral bases), + crackles, + rales and + rhonchi (throughout); no wheezes Cardiovascular: Rate/Rhythm: regular rate, regular rhythm and + tachycardic Heart Sounds: normal S1 and normal S2; no murmur Extremities: normal capillary refill Gastrointestinal (Abdomen): Inspection/Auscultation: abdomen not distended Percussion/Palpation: abdomen soft; abdomen nontender Musculoskeletal: Head/Neck/Chest: head atraumatic Skin: + ulcer (2 small stage II sacral ulcers present without surrounding cellulitis) Neurologic: awake; not confused Psychiatric: Orientation: alert, oriented to person and cooperative Results & Data Results & Data ([facility]) Vital Signs (Past 12 Hours) Vital Signs Temp Pulse Resp BP Pulse Ox Pulse Ox 04/27/20 15:19 36.4 C L 106 H 16 100/59 L 94 04/27/20 13:22 98 H 22 96 04/27/20 09:08 96 04/27/20 07:38 100 H 24 96 04/27/20 07:10 36.8 C 105 H 20 145/72 H 98 Laboratory Results 04/27/20 04/27/20 04/27/20 Range/Units 16:22 07:37 07:37 WBC 14.45 H 14.10 H (4.8-10.8) K/uL RBC 2.59 L 2.61 L (4.7-6.1) M/uL Hgb 7.9 L 7.7 L (14.0-18.0) g/dL Hct 23.8 L 23.7 L (42-52) % MCV 91.9 90.8 (80-100) fL MCH 30.5 29.5 (25-34) pg MCHC Pending 32.5 (32-36) g/dL RDW Std Deviation 55.1 H 53.9 H (36.4-46.3) fL RDW Coeff of Nallely 16.4 H 16.3 H (11.5-14.5) % Plt Count 280 289 (130-400) K/uL MPV 8.9 8.7 (7.4-10.4) fL Immature Gran % (Auto) 0.6 % Neut % (Auto) 94.4 % Lymph % (Auto) 3.0 % [place] % (Auto) 2.0 % Eos % (Auto) 0.0 % Baso % (Auto) 0.0 % Neut # (Auto) 13.31 H (1.4-6.5) K/uL Lymph # (Auto) 0.43 L (1.2-3.4) K/uL [place] # (Auto) 0.28 (0.11-0.59) K/uL Eos # (Auto) 0.00 (0-0.5) K/uL Baso # (Auto) 0.00 (0-0.2) K/uL Immature Gran # (Auto) 0.08 H (0.00-0.02) K/uL RBC Morphology Unremarkable PT (9.0-12.0) Seconds INR (0.9-1.1) APTT (21.0-31.0) Seconds PTT Ratio Sodium 150 H (136-145) mmol/L Potassium 3.0 L (3.5-5.1) mmol/L Chloride 113 H (98-107) mmol/L Carbon Dioxide 30 (21-32) mmol/L Anion Gap 6.0 (3-11) BUN 21 H (7-18) mg/dl Creatinine 0.54 L (0.6-1.4) mg/dl Est Cr Clr Drug Dosing 129.6 ml/min Est GFR ( Amer) 122.4 Est GFR (Non-Af Amer) 105.6 BUN/Creatinine Ratio 38.5 H (10-20) Glucose 110 H (70-99) mg/dl POC Glucose (70-99) mg/dl Calcium 8.5 (8.5-10.1) mg/dl Phosphorus 2.0 L (2.5-4.9) mg/dl Magnesium 1.8 (1.8-2.4) mg/dl Total Bilirubin 0.8 (0.2-1) mg/dl AST 23 (15-37) U/L ALT 31 (12-78) U/L Alkaline Phosphatase 95 (45-117) U/L Troponin I (0-0.045) ng/ml Total Protein 4.9 L (6.4-8.2) gm/dl Albumin 1.7 L (3.4-5.0) gm/dl Globulin 3.2 (2.5-4.0) gm/dl Albumin/Globulin Ratio 0.5 L (0.9-2) 04/27/20 04/26/20 04/26/20 Range/Units 07:37 19:53 17:50 WBC (4.8-10.8) K/uL RBC (4.7-6.1) M/uL Hgb (14.0-18.0) g/dL Hct (42-52) % MCV (80-100) fL MCH (25-34) pg MCHC (32-36) g/dL RDW Std Deviation (36.4-46.3) fL RDW Coeff of Nallely (11.5-14.5) % Plt Count (130-400) K/uL MPV (7.4-10.4) fL Immature Gran % (Auto) % Neut % (Auto) % Lymph % (Auto) % [place] % (Auto) % Eos % (Auto) % Baso % (Auto) % Neut # (Auto) (1.4-6.5) K/uL Lymph # (Auto) (1.2-3.4) K/uL [place] # (Auto) (0.11-0.59) K/uL Eos # (Auto) (0-0.5) K/uL Baso # (Auto) (0-0.2) K/uL Immature Gran # (Auto) (0.00-0.02) K/uL RBC Morphology PT 13.4 H (9.0-12.0) Seconds INR 1.3 H (0.9-1.1) APTT 41.7 H (21.0-31.0) Seconds PTT Ratio 1.5 Sodium (136-145) mmol/L Potassium (3.5-5.1) mmol/L Chloride (98-107) mmol/L Carbon Dioxide (21-32) mmol/L Anion Gap (3-11) BUN (7-18) mg/dl Creatinine (0.6-1.4) mg/dl Est Cr Clr Drug Dosing ml/min Est GFR ( Amer) Est GFR (Non-Af Amer) BUN/Creatinine Ratio (10-20) Glucose (70-99) mg/dl POC Glucose 128 H (70-99) mg/dl Calcium (8.5-10.1) mg/dl Phosphorus (2.5-4.9) mg/dl Magnesium (1.8-2.4) mg/dl Total Bilirubin (0.2-1) mg/dl AST (15-37) U/L ALT (12-78) U/L Alkaline Phosphatase (45-117) U/L Troponin I 0.220 H* (0-0.045) ng/ml Total Protein (6.4-8.2) gm/dl Albumin (3.4-5.0) gm/dl Globulin (2.5-4.0) gm/dl Albumin/Globulin Ratio (0.9-2) PG Care Time/CCT Total # of Minutes Spent Total Time Spent with Patient: Total time spent is greater than 50% in coordination of care (as documented) at patient's floor/unit and/or counseling patient: Coding Level of Care Code 35395 Subseq Hosp Care Lvl 3 Diagnoses Sepsis A41.9 Acute respiratory failure with hypoxia J96.01 Multifocal pneumonia J18.9 Sacral decubitus ulcer, stage II L89.152 Atrial fibrillation with rapid ventricular response I48.91 Severe protein-calorie malnutrition E43 Non Hodgkin's lymphoma C85.90 Hypokalemia E87.6 Hypophosphatemia E83.39 DVT prophylaxis Z29.9
[2020-04-27 16:41] LABS: Hematocrit (blood only) 23.8 % (42-52); Hemoglobin 7.9 g/dL (14.0-18.0); Mean Corpuscular Hemoglobin 30.5 pg (25-34); Mean Corpuscular Volume 91.9 fL (80-100); Mean Platelet Volume 8.9 fL (7.4-10.4); Platelet Count 280 K/uL (130-400); RDW Coefficient of Variation 16.4 % (11.5-14.5); RDW Standard Deviation 55.1 fL (36.4-46.3); Red Blood Count 2.59 M/uL (4.7-6.1); White Blood Count 14.45 K/uL (4.8-10.8)
[2020-04-27 16:46] LABS: Mean Corpuscular Hgb Conc 33.2 g/dL (32-36)
[2020-04-27] MEDS ORDERED: POTASSIUM PHOS 3 MMOL/1 ML INFUSION IV STA (16:52)
[2020-04-27] MEDS ORDERED: POTASSIUM PHOSPHATE 15 MMOL in SODIUM CHLORIDE 0.9% 250 ML IV ONE (17:30)
[2020-04-27] MEDS ORDERED: VANCOMYCIN TROUGH ONE (19:30)
[2020-04-27] MEDS ORDERED: FUROSEMIDE 10 MG in SYRINGE 0 ML IV ONE (20:00)
--- NOTE | 2020-04-27 21:39 | Pharmacy Report ---
Pharmacy Abx Dose Short Note - Date of Service April 27, 2020 - Assessment & Plan Assessment 69 year old M receiving vanc/Zosyn for treatment of worsening pulmonary function Day #2 Plan Vancomycin * Trough level of 21.9 mcg/mL is supratherapeutic * Change to 1000 mg IV every 12 hours * Goal trough level: 15 to 20 mcg/mL * Trough ordered for: 04/29 @1130 Pharmacy will continue to follow and will adjust dose/frequency as necessary. Thank you.
[2020-04-27] MEDS ORDERED: LORazepam 0.5 MG/1 ML VIAL IV PRN (22:47)
[2020-04-28] MEDS ORDERED: VANCOMYCIN HCL 1,000 MG in SODIUM CHLORIDE 0.9% 250 ML IV SCH
[2020-04-28] MEDS: PIPERACILLIN/TAZOBACTAM 3.375 GM in DEXTROSE 5% 100 ML IV SCH ×2 (01:42→10:40)
[2020-04-28 06:30] LABS: Eosinophils # (auto) 0.01 K/uL (0-0.5); Eosinophils % (auto) 0.1 %; Hematocrit (blood only) 24.7 % (42-52); Immature Granulocytes # (auto) 0.13 K/uL (0.00-0.02); Lymphocytes # (auto) 0.34 K/uL (1.2-3.4); Lymphocytes % (auto) 2.5 %; Mean Corpuscular Hemoglobin 29.9 pg (25-34); Mean Corpuscular Hgb Conc 32.4 g/dL (32-36); Mean Corpuscular Volume 92.2 fL (80-100); Mean Platelet Volume 9.5 fL (7.4-10.4); Monocytes # (auto) 0.52 K/uL (0.11-0.59); Monocytes % (auto) 3.9 %; Neutrophils # (auto) 12.49 K/uL (1.4-6.5); Neutrophils % (auto) 92.5 %; Platelet Count 288 K/uL (130-400); RDW Coefficient of Variation 16.4 % (11.5-14.5); RDW Standard Deviation 55.3 fL (36.4-46.3); Red Blood Count 2.68 M/uL (4.7-6.1); White Blood Count 13.49 K/uL (4.8-10.8)
[2020-04-28 07:03] LABS: Albumin Level 1.7 gm/dl (3.4-5.0); BUN Creatinine Ratio 30.1 (10-20); Calcium 8.5 mg/dl (8.5-10.1); Creatinine Clr Calc Pharmacy 139.9 ml/min; Est GFR (African American) 126.4; Potassium 2.7 mmol/L (3.5-5.1)
[2020-04-28 07:06] LABS: Albumin Globulin Ratio 0.5 (0.9-2); Bilirubin,Total 0.9 mg/dl (0.2-1); Globulin 3.3 gm/dl (2.5-4.0); Phosphorus 2.4 mg/dl (2.5-4.9)
[2020-04-28] MEDS: ALBUTEROL 0.083% NEBU SOLN 3 ML VIAL NEB PRN (07:14)
[2020-04-28] MEDS: ACETYLCYSTEINE 10% INHAL SOLN 4 ML **DISPENSED BY RESP. INH SCH (07:14)
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
[2020-04-28] MEDS ORDERED: DEXTROSE 5% 500 ML IV SCH (08:00)
[2020-04-28] MEDS ORDERED: FUROSEMIDE 20 MG in SYRINGE 0 ML IV ONE (08:00)
[2020-04-28] MEDS: POTASSIUM CHLORIDE / WTR 10 MEQ/100 ML PLCT IV SCH ×2 (08:49→10:03)
[2020-04-28] MEDS: FAMOTIDINE 20 MG in SYRINGE 3 ML IV SCH (08:49)
[2020-04-28] MEDS ORDERED: NURSING DECISION MEDICATION ONE (09:00)
[2020-04-28] MEDS ORDERED: ATROPINE SULFATE 1% OP ONE (09:13)
[2020-04-28] MEDS ORDERED: SODIUM CHLORIDE 0.65% NA SOLN 45 ML (OCEAN) PRN (09:15)
[2020-04-28] MEDS ORDERED: ATROPINE SULFATE 1% OP SOLN 2 ML BTL PO ONE (10:00)
[2020-04-28] MEDS ORDERED: ATROPINE SULFATE 1% OP SOLN 5 ML BTL PO ONE (10:15)
== END 2020-04-28 12:09 | disposition hospice, home (50) | DRG 871 ==
LOC: ED 10:32 → 1E 12:35 → SUATTDRO 12:35 → 1E 13:33 → 2S 04-24 16:05 → 3N 04-25 16:26